=== PATIENT | female | born 1935 | race Caucasian/White ===

== ENCOUNTER 2016-04-23 15:03 | Outpatient (CLI) | payer MEDICARE | END 2016-04-23 15:04 | LOC: MADLABBHPM 15:03 | PROVIDERS: ATTEND Family Medicine | DX: R30.0 Dysuria (principal) | CPT/HCPCS: 87077; 87086; 87186 ==

== ENCOUNTER 2016-07-14 10:49 | Outpatient (CLI) | payer MEDICARE | END 2016-07-14 10:50 | disposition home or self-care (01) | LOC: MADLABBHPM 10:49 | PROVIDERS: ATTEND Family Medicine | DX: R30.0 Dysuria (principal) | CPT/HCPCS: 36415; 87077; 87086; 87186 ==

== ENCOUNTER 2017-02-26 11:17 | Emergency (ER) | payer MEDICARE ==
--- NOTE | 2017-02-26 11:59 | RAD ---
SINGLE VIEW OF THE CHEST: COMPARISON: 08/03/15 HISTORY: Dyspnea. FINDINGS: Single view of the chest shows a normal sized cardiomediastinal silhouette. There is no evidence of c onsolidation, mass, or pleural effusion. The bones are unremarkable. IMPRESSION: No evidence of acute cardiopulmonary disease. POS: [facility]
[2017-02-26] MEDS ORDERED: Lisinopril 10 MG TAB ONE (12:00)
[2017-02-26 12:11] LABS: Red Blood Cell (RBC) Count 4.61 mill/uL (4.20-5.40); White Blood Cell (WBC) Count 6.8 thou/uL (4.8-10.8)
[2017-02-26 12:12] LABS: #Basophils 0.1 thou/uL (0.0-0.2); #Eosinphils 0.1 thou/uL (0.0-0.7); #Monocytes 0.4 thou/uL (0.11-0.59); #Neutrophils 4.2 thou/uL (1.40-6.50); %Basophils 0.8 % (0.0-1.0); %Eosinophils 1.7 % (0.0-10.0); %Lymphocytes 29.8 % (21.0-51.0); %Monocytes 5.7 % (0.0-10.0); Mean Corpuscular HGB CONC 33.1 g/dL (32.0-36.0); Mean Corpuscular Hemoglobin 30.4 pg (27.0-31.0); Mean Corpuscular Volume 92.1 fl (81.0-99.0); Mean Platelet Volume 6.5 fL (7.4-10.4); Platelet Count 159 thou/uL (130-400); RBC Distribution Width 11.8 % (11.5-14.5)
[2017-02-26 12:31] LABS: ALT (SGPT) 10 U/L (8-55); AST (SGOT) 13 U/L (5-34); Alkaline Phosphatase 98 U/L (40-150); Anion Gap 16 mmol/L (10-20); BUN (Urea Nitrogen) 15 mg/dL (9.8-20.1); Bilirubin, Total 0.3 mg/dL (0.2-1.2); CK (CPK) 29 U/L (29-168); Calc. Creatinine Clearance 0 mL/min (70-130); Calcium 9.6 mg/dL (7.8-10.44); Carbon Dioxide 27 mmol/L (23-31); Chloride 104 mmol/L (98-107); Estimated GFR-MDRD 61; Globulin 3.1 g/dL (2.4-3.5); Glucose 104 mg/dL (83-110); Potassium 3.9 mmol/L (3.5-5.1); Protein, Total 7.1 g/dL (6.0-8.3); Sodium 143 mmol/L (136-145)
[2017-02-26 12:32] LABS: CKMB 1.1 ng/mL (0-6.6); Troponin I Less than 0.010 ng/mL (< 0.028)
[2017-02-26] MEDS ORDERED: methylPREDNISolone Sod Succ/PF 125 MG/2 ML VIAL ONE (13:21)
== END 2017-02-26 14:00 | disposition home or self-care (01) ==
LOC: MADERS 11:17
DX: J44.1 Chronic obstructive pulmonary disease with (acute) exacerbation (principal); F32.9 Major depressive disorder, single episode, unspecified; F41.9 Anxiety disorder, unspecified; F17.210 Nicotine dependence, cigarettes, uncomplicated; I10 Essential (primary) hypertension; I25.2 Old myocardial infarction; Z79.899 Other long term (current) drug therapy
CPT/HCPCS: 36415; 71010; 80053; 82553; 83880; 84484; 85025; 93005; 94640; 94760; 96374; J2930; J7620

== ENCOUNTER 2017-05-13 13:29 | Inpatient (IN) | payer MEDICARE ==
[2017-05-13 13:43] VITALS: BMI 23.3
[2017-05-13] MEDS ORDERED: methylPREDNISolone Sod Succ/PF 125 MG/2 ML VIAL IVP SCH (14:00)
[2017-05-13 14:10] LABS: #Basophils 0.1 thou/uL (0.0-0.2); #Eosinphils 0.1 thou/uL (0.0-0.7); #Lymphocytes 2.4 thou/uL (1.20-3.40); #Monocytes 0.7 thou/uL (0.11-0.59); #Neutrophils 6.4 thou/uL (1.40-6.50); %Basophils 0.8 % (0.0-1.0); %Eosinophils 0.9 % (0.0-10.0); %Lymphocytes 24.6 % (21.0-51.0); %Neutrophils 66.7 % (42.0-75.0); Hemoglobin 13.9 g/dL (12.0-16.0); Mean Corpuscular HGB CONC 32.7 g/dL (32.0-36.0); Mean Corpuscular Hemoglobin 29.7 pg (27.0-31.0); Mean Corpuscular Volume 90.9 fl (81.0-99.0); Mean Platelet Volume 7.9 fL (7.4-10.4); Platelet Count 208 thou/uL (130-400); RBC Distribution Width 12.9 % (11.5-14.5); Red Blood Cell (RBC) Count 4.68 mill/uL (4.20-5.40); White Blood Cell (WBC) Count 9.6 thou/uL (4.8-10.8)
[2017-05-13 14:25] LABS: ALT (SGPT) 8 U/L (8-55); AST (SGOT) 12 U/L (5-34); Albumin 4.3 g/dL (3.4-4.8); Alkaline Phosphatase 98 U/L (40-150); BUN (Urea Nitrogen) 15 mg/dL (9.8-20.1); Bilirubin, Total 0.5 mg/dL (0.2-1.2); Calc. Creatinine Clearance 45 mL/min (70-130); Calcium 9.8 mg/dL (7.8-10.44); Estimated GFR-MDRD 53; Globulin 3.3 g/dL (2.4-3.5); Glucose 109 mg/dL (83-110); Protein, Total 7.6 g/dL (6.0-8.3)
[2017-05-13 14:28] LABS: CKMB 0.9 ng/mL (0-6.6)
[2017-05-13 14:46] LABS: Chloride 101 mmol/L (98-107); Potassium 3.3 mmol/L (3.5-5.1); Sodium 139 mmol/L (136-145)
[2017-05-13] MEDS: Sodium Chloride 0.9% 1,000 ML IV SCH (15:00)
[2017-05-13 15:29] LABS: Carbon Dioxide 24 mmol/L (23-31)
[2017-05-13 16:06] LABS: Anion Gap 17 mmol/L (10-20)
[2017-05-13] MEDS ORDERED: Azithromycin 250 MG TAB PO SCH ×2 (18:00→18:45)
[2017-05-13] MEDS: Benzonatate 100 MG CAP PO SCH (20:03)
[2017-05-14] MEDS: Sodium Chloride 0.9% 1,000 ML IV SCH ×3 (01:07→17:55)
--- NOTE | 2017-05-14 08:03 | HP ---
ATTENDING: Dr. Johana Hu REASON FOR ADMISSION: Shortness of breath, general weakness, not eating. HISTORY OF PRESENT ILLNESS: Ms. Canada is a 81-year-old female with multiple chronic medical conditions including COPD, hypertension, dyslipidemia, CAD , CHF, depression, anxiety and chronic tobacco use. She had been on multiple chronic medications, but had not been taking her medications in awhile nor followed up to the clinic lately except for when she is sick. She initially was brought by the granddaughter, Betsy Alvarez, who serves as the primary manager corporate strategy to [facility] today for evaluation of persistent blood pressure elevation and persistent coughing with shortness of breath. Ms. Alvarez reports that the patient had been out of all her medications including her inhalers. She still has some of her lisinopril left, but had not been taking them. Lately the patient has been coughing persistently over the past couple of weeks that has progressed and worsened. Associated symptoms include sputum production, intermittent shortness of breath and wheezing. Lately her blood pressure has been elevated in the 160s to 180s whenever her granddaughter checks BP at home. She has not been feeling well for the last few days and had not been eating lately. She was noticeably becoming weaker at home per granddaughter. She stays in bed the whole time and does not want to do anything per granddaughter. Yesterday her blood pressure was reported up to 208/148. Granddaughter started the remaining pill of lisinopril 40 mg, once yesterday, but reports could not keep her blood pressure low. She took again the blood pressure medication today, but her blood pressures still remained high , thus granddaughter brought the patient to the clinic for which she agreed on. When seen, patient reports that she has been coughing and has a hard time breathing at times. She denies chest pain, pain with breathing or bloody sputum. She states that she does not feel good. Granddaughter also reports tactile fever a few days ago. The patient continues to smoke instead of eating meals. Per granddaughter, patient could hardly walk or even get up out of bed or chair without significant help. When she presented in the clinic, she was in the wheelchair with respirations of 28, and O2 sats of 90%. A trial of albuterol and Atrovent neb treatment was given in the clinic. O2 saturation improved from 91 to 93 on room air and respiration that was down to 24 post- nebs treatment. Chest x-ray was obtained that showed no radiographic evidence of acute pulmonary process. I had a lengthy discussion with the patient and manager corporate strategy/granddaughter, Betsy Alvarez for the treatment options. Ms. Alvarez reports that patient is very noncompliant at home. She may not take her medications again and she is concerned that she may just decline further with outpatient therapy. Also reports that patient's spouse who is chronically ill just had a stroke and is needing higher level of care at home as well. The granddaughter reports that she is the only one who takes care of them and is not comfortable at this time to take her home. I discussed this with patient who agrees to be admitted for inpatient management of COPD, general weakness/ dehydration as long as she is going to be in [facility]. Patient was admitted then to [facility] per request. PAST MEDICAL HISTORY: Hypertension, dyslipidemia, history of previous strokes, COPD, arthritis, CAD, recurrent UTI, congestive heart failure, arthritis, migraine headache, depression, anxiety, chronic tobacco use.Medical noncompliance. ALLERGIES: KEFLEX, throat swelling. DIAZEPAM, confusion. HYDROCODONE, confusion. TICLOPIDINE allergy. PHENYTOIN, severe confusion, VIOXX allergy. HEMOROLOGIC AGENTS, allergy, CONTRAST DYE, allergy anaphylactic LORCET/ LORCET allergy. CODEINE confusion. PAST SURGICAL HISTORY: Denies. HOSPITALIZATION: Bladder problem 2011.; Pneumonia, COPD-unrecalled dates FAMILY HISTORY: Father of brain cancer. Spouse is alive with chronic medical conditions. Mother is . SOCIAL HISTORY: The patient is and lives with . Current manager corporate strategy is Ms. Betsy Alvarez, who lives with the patient at this time. Habits; chronic tobacco smoking for more than 50 years. Denies alcohol or illicit drug use. REVIEW OF SYSTEMS: GENERAL: The patient reports feverish sensation and chills, fatigue, general weakness, loss of appetite and weight loss 7.6 lbs per clinic records in 2 months period. HEENT: Denies acute visual changes, blurred vision, runny nose, congestion, earache. CARDIAC: Denies chest pain, syncope, palpitations, paroxysmal nocturnal dyspnea. Reports dyspnea on exertion. RESPIRATORY: Reports persistent cough, shortness of breath, chest congestion, sputum production, wheezing. No pain with breathing. No bloody sputum. GASTROINTESTINAL: No nausea, vomiting, abdominal pain, diarrhea, constipation, rectal bleeding. GENITOURINARY: Denies frequency, urgency or hematuria. MUSCULOSKELETAL: Denies joint swelling, joint pain, low back pain. Reports trouble walking due to unsteadiness or general weakness. SKIN: No rashes, no lesions, no pruritus. NEURO: No new motor or sensory losses. No loss of consciousness, no seizures, tics or tremors. ENDOCRINE: No heat or cold intolerance. Positive weight loss of 7.6 over a 2 month period based on clinic records. HEMATOLOGIC: Denies easy bruising or any source of bleeding. PSYCH: Reports history of anxiety and depression. Denies active symptoms, no hallucinations. No insomnia PHYSICAL EXAMINATION: VITAL SIGNS: Temperature 99.6, pulse 84, respirations 20, blood pressure 143/63 , O2 saturation 93% on room air. GENERAL: The patient is asleep, resting comfortably in bed in position. No family is present at the time of visit. Not in distress. HEENT: Normocephalic, atraumatic. PERRL intact. Anicteric sclerae. Oral mucosa is dry. NECK: Supple. No LAD, no JVD, no bruit. CHEST: Normal excursion, nonlabored breathing. LUNGS: Good air movements. No rales, no crackles, no wheezing. Prolonged expiratory phase. No rales, no crackles, no wheezing, no rhonchi. HEART: RRR. Normal S1 and S2. ABDOMEN: Flat, soft, normoactive bowel sounds, nondistended, nontender. No rebound or guarding. Negative CVA tenderness bilaterally. EXTREMITIES: No edema, no cyanosis. Negative Homans' bilaterally. SKIN: Poor skin turgor. No rashes, no lesions, warm. PSYCH: calm, appropriate mood and affect, cooperative. ASSESSMENT: 1. Acute COPD exacerbation. 2. Acute Bronchitis. 3. Dehydration symptoms secondary to poor oral intake/loss of appetite. 4. General weakness 5. Anorexia with weight loss. 6. Hypertension. 7. History of CHF, CAD, depression and anxiety. 8. Chronic tobacco use, unmotivated to quit. 9. Medical noncompliance. 1. The patient is admitted to [facility] for inpatient management of chronic obstructive pulmonary disease and further observation of general weakness and dehydration. We will start on IV steroids. We will continue bronchodilators, O2 supplement p.r.n. Empiric treatment with oral antibiotic, to start Z-CED. 2. We will continue to monitor her blood pressure. Hold Lisinopril for now due t low BP. Treat if indicated. IV fluids initiated for hydration. The patient is encouraged to eat, increase caloric intake. Dietary consult for supplements. 3. The patient may benefit from therapy. May consider in a.m. once patient is stabilized. 4. Routine labs ordered. 5. GI prophylaxis with PPI. 6. DVT prophylaxis with Lovenox. 7. Further recommendations depending on the hospital course. CODE STATUS: Patient reports FULL CODE code. DISPOSITION: Home once appropriate. FANY
[2017-05-14] MEDS: Enoxaparin Sodium 40 MG/0.4 ML SYRINGE SC SCH (08:22)
[2017-05-14] MEDS: Nicotine 21 MG PATCH TD SCH (08:22)
[2017-05-14] MEDS: Azithromycin 250 MG TAB PO SCH (08:22)
[2017-05-14] MEDS: Benzonatate 100 MG CAP PO SCH ×3 (08:22→21:01)
[2017-05-14] MEDS ORDERED: Budesonide 0.5 MG/2 ML NEB INH SCH (10:45)
[2017-05-14] MEDS ORDERED: Sodium Chloride 0.9% 1,000 ML BAG ONE (13:37)
[2017-05-14] MEDS: Budesonide 0.5 MG/2 ML NEB INH SCH (17:54)
[2017-05-14] MEDS ORDERED: Sodium Chloride 0.9% 1,000 ML IV SCH (19:00)
[2017-05-14] MEDS ORDERED: Amlodipine 5 MG TAB PO SCH (19:15)
[2017-05-14] MEDS ORDERED: Promethazine DM 6.25-15mg/5ml 120 ML BOT PO PRN (20:08)
[2017-05-15] MEDS: Budesonide 0.5 MG/2 ML NEB INH SCH ×2 (06:34→17:53)
[2017-05-15] MEDS: Benzonatate 100 MG CAP PO SCH ×3 (07:41→20:22)
[2017-05-15] MEDS: Azithromycin 250 MG TAB PO SCH (07:41)
[2017-05-15] MEDS: Nicotine 21 MG PATCH TD SCH (07:42)
[2017-05-15] MEDS: Amlodipine 5 MG TAB PO SCH (07:42)
[2017-05-15] MEDS: Enoxaparin Sodium 40 MG/0.4 ML SYRINGE SC SCH (07:42)
[2017-05-15] MEDS ORDERED: Mag-Al 1200 mg/1200 mg/30 ML UDCUP PO PRN (09:25)
[2017-05-15] MEDS ORDERED: Ondansetron ODT 4 MG TAB PO PRN (09:25)
[2017-05-16] MEDS: Budesonide 0.5 MG/2 ML NEB INH SCH (05:49)
[2017-05-16 07:13] VITALS: BP 137/64; TEMP 97.2
[2017-05-16] MEDS: Azithromycin 250 MG TAB PO SCH (09:25)
[2017-05-16] MEDS: Amlodipine 5 MG TAB PO SCH (09:25)
[2017-05-16] MEDS: Enoxaparin Sodium 40 MG/0.4 ML SYRINGE SC SCH (09:26)
[2017-05-16] MEDS: Benzonatate 100 MG CAP PO SCH (09:26)
[2017-05-16] MEDS: Nicotine 21 MG PATCH TD SCH (09:26)
== END 2017-05-16 11:45 | DRG 192 ==
LOC: MADMS 13:29
PROVIDERS: ADMIT Family Medicine; ATTEND Family Medicine
DX: J44.0 Chronic obstructive pulmonary disease with (acute) lower respiratory infection (principal); E86.0 Dehydration; I11.0 Hypertensive heart disease with heart failure; I50.9 Heart failure, unspecified; J44.1 Chronic obstructive pulmonary disease with (acute) exacerbation; R53.1 Weakness; E78.5 Hyperlipidemia, unspecified; I25.10 Atherosclerotic heart disease of native coronary artery without angina pectoris; F32.9 Major depressive disorder, single episode, unspecified; F41.9 Anxiety disorder, unspecified; F17.210 Nicotine dependence, cigarettes, uncomplicated; Z91.14 Patient's other noncompliance with medication regimen; Z91.19 Patient's noncompliance with other medical treatment and regimen; J20.9 Acute bronchitis, unspecified; R63.0 Anorexia; Z68.23 Body mass index [BMI] 23.0-23.9, adult
CPT/HCPCS: 71046; 80053; 82553; 83880; 84484; 85025; A4216; J1650; J2930; J7050; J7620; J7626; Q0162

== ENCOUNTER 2017-05-16 10:28 | Inpatient (IN) | payer MEDICARE ==
[2017-05-16] MEDS ORDERED: Mag-Al 1200 mg/1200 mg/30 ML UDCUP PO PRN (13:17)
[2017-05-16] MEDS: Benzonatate 100 MG CAP PO SCH ×2 (14:08→20:42)
[2017-05-16] MEDS: Mometasone/Formoterol 60 PUFF AER INH SCH (18:30)
[2017-05-16] MEDS: Promethazine DM 6.25-15mg/5ml 120 ML BOT PO PRN (18:31)
[2017-05-17] MEDS: Mometasone/Formoterol 60 PUFF AER INH SCH ×2 (06:15→18:37)
[2017-05-17] MEDS: Amlodipine 5 MG TAB PO SCH (07:48)
[2017-05-17] MEDS: Benzonatate 100 MG CAP PO SCH ×3 (07:48→20:09)
[2017-05-17] MEDS: Nicotine 21 MG PATCH TD SCH (07:49)
[2017-05-17] MEDS: Enoxaparin Sodium 40 MG/0.4 ML SYRINGE SC SCH (07:49)
[2017-05-17] MEDS: Azithromycin 250 MG TAB PO SCH (07:49)
[2017-05-17] MEDS ORDERED: Prevnar 13-Val Conj/PF 0.5 ML SYRINGE IM ONE (09:00)
[2017-05-17] MEDS ORDERED: FLU VACC TS2017-18 (>65YR) 0.5 ML SYRINGE IM ONE (09:00)
[2017-05-18] MEDS: Mometasone/Formoterol 60 PUFF AER INH SCH ×2 (06:19→18:09)
[2017-05-18] MEDS: Enoxaparin Sodium 40 MG/0.4 ML SYRINGE SC SCH (08:39)
[2017-05-18] MEDS: Nicotine 21 MG PATCH TD SCH (08:40)
[2017-05-18] MEDS: Azithromycin 250 MG TAB PO SCH (08:41)
[2017-05-18] MEDS: Amlodipine 5 MG TAB PO SCH (08:41)
[2017-05-18] MEDS: Benzonatate 100 MG CAP PO SCH ×3 (08:41→20:22)
[2017-05-19 03:51] VITALS: BMI 24.2
[2017-05-19] MEDS: Mometasone/Formoterol 60 PUFF AER INH SCH ×2 (06:12→19:12)
[2017-05-19] MEDS: Amlodipine 5 MG TAB PO SCH (09:04)
[2017-05-19] MEDS: Benzonatate 100 MG CAP PO SCH ×3 (09:04→20:23)
[2017-05-19] MEDS: Enoxaparin Sodium 40 MG/0.4 ML SYRINGE SC SCH (09:05)
[2017-05-19] MEDS: Nicotine 21 MG PATCH TD SCH (09:06)
[2017-05-19] MEDS ORDERED: Amlodipine 5 MG TAB PO SCH (13:15)
[2017-05-20] MEDS: Mometasone/Formoterol 60 PUFF AER INH SCH ×2 (06:06→17:39)
[2017-05-20] MEDS: Promethazine DM 6.25-15mg/5ml 120 ML BOT PO PRN (07:42)
[2017-05-20] MEDS: Amlodipine 5 MG TAB PO SCH (09:14)
[2017-05-20] MEDS: Enoxaparin Sodium 40 MG/0.4 ML SYRINGE SC SCH (09:14)
[2017-05-20] MEDS: Nicotine 21 MG PATCH TD SCH (09:14)
[2017-05-20] MEDS: Benzonatate 100 MG CAP PO SCH ×3 (09:15→20:28)
[2017-05-21 06:59] VITALS: BP 117/60; TEMP 97.6
[2017-05-21] MEDS: Mometasone/Formoterol 60 PUFF AER INH SCH (09:04)
[2017-05-21] MEDS: Nicotine 21 MG PATCH TD SCH (09:04)
[2017-05-21] MEDS: Enoxaparin Sodium 40 MG/0.4 ML SYRINGE SC SCH (09:06)
[2017-05-21] MEDS: Benzonatate 100 MG CAP PO SCH (09:06)
[2017-05-21] MEDS: Amlodipine 5 MG TAB PO SCH (09:06)
--- NOTE | 2017-05-21 13:54 | DIS ---
DATE OF DISCHARGE: 05/21/2017 REASON FOR ADMISSION: Shortness of breath, wheezing. FINAL DIAGNOSES: 1. Deconditioning. 2. Chronic obstructive pulmonary disease exacerbation. 3. Acute bronchitis, treated. 4. Dehydration symptoms secondary to poor oral intake/loss of appetite.Improved. 5. General weakness, improved. 6. Anorexia with weight loss, improved. 7. Hypertension. 8. History of congestive heart failure, coronary artery disease, depression, anxiety, currently not on medication secondary to noncompliance.Compensated. Euvolemic. 9. Chronic tobacco use. 10. Medical noncompliance. DISCHARGE MEDICATIONS: 1. Amlodipine 10 mg p.o. daily. 2. DuoNeb q.4h. p.r.n. 3. Symbicort 160/4.5 two puffs inhaled b.i.d. 4. Nicoderm 21 mg p.o. daily. 5. Pantoprazole 40 mg p.o. daily. 6. Aspirin 81 mg p.o. daily. DISPOSITION: Home. CONDITION ON DISCHARGE: Stable. DIET: Low salt, low fat. ACTIVITIES: To use rolling walker all the time. FOLLOW UP: Follow up with Dr. Hu in 1-2 weeks, sooner with concerns. To go home with home health for usp, PT, OT evaluate and treat. DME prearranged prior to discharge, rolling walker. HISTORY OF PRESENT ILLNESS AND HOSPITAL COURSE: Ms. Canada is a 81-year-old female with multiple chronic medical conditions including COPD, hypertension, dyslipidemia, CAD, CHF, depression, anxiety and chronic tobacco use. She had been noncompliant with all her medications including the breathing treatment. She was admitted on 05/13/2017 secondary to persistent shortness of breath, general weakness, poor oral intake with 3 pound weight loss over a month or so. The patient was admitted in [facility] and was treated appropriately with bronchodilators, IV steroid that was subsequently changed to oral steroid and oral antibiotic. The patient did well during this admission. COPD symptoms improved and was back to baseline prior to discharge. She was also started on amlodipine during this admission secondary to persistent BP elevation. Prior to discharge BP has been stable with amlodipine 10 mg p.o. daily. She was also started on Nicoderm 21 mg patch during this admission. Nicoderm patch helped the patient's craving not to use tobacco during this admission and she did well. Due to general weakness/deconditioning, the patient was deemed to benefit for further rehab prior to going back to home environment. She was then transferred to [facility] swing bed after acute treatment and did well in the rehab. She was walking about 400 feet using a rolling walker prior to discharge. She is deemed at baseline functional activity at this point, but states she still feeling generally weak, thus recommending to continue rehab with home health at home. The patient was very agreeable to this. She was discharged on 05/21/2017 with improved symptoms. Vital signs prior to discharge; blood pressure 117/60, temperature 97.6, pulse 75, O2 sat 95% on room air, respirations 20 with a weight of 141 pounds and 2 ounces, height 5 feet 4 inches. Time spent on this discharge in examining patient and coordinating care 32 minutes. FANY
== END 2017-05-21 11:45 | disposition home health service (06) | DRG 192 ==
LOC: MADMS 11:50
PROVIDERS: ADMIT Family Medicine; ATTEND Family Medicine
DX: J44.0 Chronic obstructive pulmonary disease with (acute) lower respiratory infection (principal); E86.0 Dehydration; F50.89 Other specified eating disorder; I11.0 Hypertensive heart disease with heart failure; I50.9 Heart failure, unspecified; J44.1 Chronic obstructive pulmonary disease with (acute) exacerbation; J20.9 Acute bronchitis, unspecified; I25.10 Atherosclerotic heart disease of native coronary artery without angina pectoris; F32.9 Major depressive disorder, single episode, unspecified; F41.9 Anxiety disorder, unspecified; Z91.14 Patient's other noncompliance with medication regimen; E78.5 Hyperlipidemia, unspecified; Z72.0 Tobacco use; Z91.19 Patient's noncompliance with other medical treatment and regimen; Z87.01 Personal history of pneumonia (recurrent); Z68.24 Body mass index [BMI] 24.0-24.9, adult
CPT/HCPCS: G8978-GP-CJ; G8979-GP-CI; J1650; J7620

== ENCOUNTER 2017-11-26 17:10 | Emergency (ER) | payer MEDICARE ==
[~2017-11-26 17:10] MED LIST: Sodium Chloride 0.9% 1,000 ML BAG ONE
[2017-11-26] MEDS ORDERED: Ondansetron ODT 4 MG TAB ONE (17:35)
[2017-11-26 17:49] LABS: #Basophils 0.1 thou/uL (0.0-0.2); #Eosinphils 0.1 thou/uL (0.0-0.7); #Lymphocytes 2.9 thou/uL (1.20-3.40); #Monocytes 0.6 thou/uL (0.11-0.59); #Neutrophils 5.5 thou/uL (1.40-6.50); %Basophils 0.9 % (0.0-1.0); %Eosinophils 0.8 % (0.0-10.0); %Lymphocytes 31.4 % (21.0-51.0); %Monocytes 7.1 % (0.0-10.0); %Neutrophils 59.9 % (42.0-75.0); Hemoglobin 15.1 g/dL (12.0-16.0); Mean Corpuscular HGB CONC 35.5 g/dL (32.0-36.0); Mean Corpuscular Hemoglobin 31.9 pg (27.0-31.0); Mean Corpuscular Volume 89.8 fL (78.0-98.0); Mean Platelet Volume 6.8 fL (7.4-10.4); Platelet Count 186 thou/uL (130-400); RBC Distribution Width 12.2 % (11.5-14.5); Red Blood Cell (RBC) Count 4.74 mill/uL (4.20-5.40); White Blood Cell (WBC) Count 9.1 thou/uL (4.8-10.8)
[2017-11-26 18:01] LABS: Anion Gap 14 mmol/L (10-20); BUN (Urea Nitrogen) 10 mg/dL (9.8-20.1); Calc. Creatinine Clearance 0 mL/min (70-130); Calcium 9.9 mg/dL (7.8-10.44); Carbon Dioxide 27 mmol/L (23-31); Chloride 104 mmol/L (98-107); Estimated GFR-MDRD 57; Glucose 99 mg/dL (83-110); Potassium 3.9 mmol/L (3.5-5.1); Sodium 141 mmol/L (136-145)
[2017-11-26 18:05] LABS: CKMB 1.1 ng/mL (0-6.6); Troponin I 0.016 ng/mL (< 0.028)
[2017-11-26] MEDS ORDERED: Ondansetron HCl/PF 4 MG/2 ML Vial ONE (18:28)
[2017-11-26 19:22] LABS: Bilirubin Negative (Negative); Blood, Urine Negative (Negative); Clarity Clear (Clear); Glucose, Urine (Dipstick) Negative (Negative); Leukocyte Small (Negative); Nitrite Negative (Negative); Protein, Urine (Dipstick) Negative (Neg-Trace); Urobilinogen 0.2 mg/dL (0.2-1.0)
[2017-11-26 19:23] LABS: Specific Gravity, Urine 1.005 (1.002-1.036)
[2017-11-26 19:29] LABS: RBC/HPF 0-3 HPF (0-3)
[2017-11-26 19:30] LABS: Bacteria/HPF Rare-Few HPF (None Seen)
== END 2017-11-26 20:08 | disposition home or self-care (01) ==
LOC: MADERS 17:10
DX: N39.0 Urinary tract infection, site not specified (principal); E86.0 Dehydration; I10 Essential (primary) hypertension; J44.9 Chronic obstructive pulmonary disease, unspecified; I25.2 Old myocardial infarction; F17.210 Nicotine dependence, cigarettes, uncomplicated
CPT/HCPCS: 36415; 80048; 81003; 81015; 82553; 84484; 85025; 93005; 96361; 96374; J2405; J7050; Q0162

== ENCOUNTER 2017-12-21 15:22 | Emergency (ER) | payer MEDICARE ==
[2017-12-21 16:23] LABS: Bilirubin Negative (Negative); Blood, Urine Negative (Negative); Clarity Clear (Clear); Glucose, Urine (Dipstick) Negative (Negative); Leukocyte Negative (Negative); Nitrite Negative (Negative); Protein, Urine (Dipstick) Negative (Neg-Trace); Urobilinogen 0.2 mg/dL (0.2-1.0); pH, Urine 5.5 (5.0-9.0)
[2017-12-21 16:46] LABS: #Basophils 0.1 thou/uL (0.0-0.2); #Eosinphils 0.1 thou/uL (0.0-0.7); #Lymphocytes 2.3 thou/uL (1.20-3.40); #Monocytes 0.7 thou/uL (0.11-0.59); #Neutrophils 6.3 thou/uL (1.40-6.50); %Basophils 0.9 % (0.0-1.0); %Eosinophils 0.7 % (0.0-10.0); %Lymphocytes 24.3 % (21.0-51.0); %Monocytes 7.1 % (0.0-10.0); %Neutrophils 67.1 % (42.0-75.0); Hemoglobin 13.6 g/dL (12.0-16.0); Mean Corpuscular HGB CONC 33.6 g/dL (32.0-36.0); Mean Corpuscular Hemoglobin 30.2 pg (27.0-31.0); Mean Corpuscular Volume 89.9 fL (78.0-98.0); Mean Platelet Volume 7.5 fL (7.4-10.4); Platelet Count 210 thou/uL (130-400); RBC Distribution Width 11.6 % (11.5-14.5); White Blood Cell (WBC) Count 9.5 thou/uL (4.8-10.8)
[2017-12-21 17:02] LABS: ALT (SGPT) 12 U/L (8-55); AST (SGOT) 13 U/L (5-34); Albumin 4.1 g/dL (3.4-4.8); Alkaline Phosphatase 92 U/L (40-150); Anion Gap 15 mmol/L (10-20); BUN (Urea Nitrogen) 17 mg/dL (9.8-20.1); Bilirubin, Total 0.5 mg/dL (0.2-1.2); Calc. Creatinine Clearance 0 mL/min (70-130); Calcium 9.8 mg/dL (7.8-10.44); Carbon Dioxide 27 mmol/L (23-31); Chloride 99 mmol/L (98-107); Estimated GFR-MDRD 57; Globulin 3.2 g/dL (2.4-3.5); Glucose 109 mg/dL (83-110); Protein, Total 7.3 g/dL (6.0-8.3); Sodium 138 mmol/L (136-145)
[2017-12-21] MEDS ORDERED: Potassium Chloride 20 MEQ TAB ONE (18:27)
--- NOTE | 2017-12-21 18:38 | CT ---
NONCONTRAST CT ABDOMEN AND PELVIS: Date: 12/31/17 HISTORY: Right lower quadrant pain for 4 days. Iodine allergy. COMPARISON: 05/29/16. FINDINGS: Again noted are calcifications in the region of each renal pelvis, which may actually represent vascu lar calcifications as opposed to renal calculi. There is no hydronephrosis and no definite ureteral c alculus is seen bilaterally. There is slightly asymmetric greater right perinephric stranding. The ex act etiology is uncertain. Infection on the right cannot be entirely excluded. Urinary bladder is partially distended and has a normal appearance. Again noted is a prominent calcif ication seen near the base of the urinary bladder, but is likely near the region of the vaginal cuff and there is evidence of prior hysterectomy. Calcified granuloma is present at the right lung base. There is suggestion of minimal emphysematous c hanges at each lung base. Vascular calcifications seen in the abdominal aorta and involving the iliac arteries. Calcified granuloma is present in the spleen. The liver, pancreas, and bilateral adrenal glands demonstrate a grossly normal nonenhanced CT appeara nce. Degenerative changes are again seen in the lumbar spine. IMPRESSION: 1. Calcifications in each renal pelvis, which are stable from prior exam and appear to represent vas cular calcifications as opposed to nonobstructing renal calculi. No ureteral calculus is seen bilater ally, and there is no hydronephrosis. 2. Minimal asymmetric right perinephric stranding compared to the left. The exact etiology is uncert ain. Infection on the right cannot be entirely excluded. Recent passage of a calculus is a possibilit y, but there are no periureteral inflammatory changes to suggest this as an etiology. 3. Colonic diverticulosis. 4. The appendix is not visualized, but there are no secondary signs to suggest appendicitis. 5. Hysterectomy with prominent vascular calcifications near the vaginal cuff and appears to be betwe en the vaginal cuff and the base of the urinary bladder. 6. Tiny pericardial effusion versus pericardial thickening. POS: [facility]
== END 2017-12-21 18:25 | disposition home or self-care (01) ==
LOC: MADERS 15:22
DX: E87.6 Hypokalemia (principal); R10.31 Right lower quadrant pain; I10 Essential (primary) hypertension; J44.9 Chronic obstructive pulmonary disease, unspecified; I25.2 Old myocardial infarction; F41.9 Anxiety disorder, unspecified; F32.9 Major depressive disorder, single episode, unspecified; F17.210 Nicotine dependence, cigarettes, uncomplicated
CPT/HCPCS: 36415; 74176; 80053; 81003; 85025; 99406

== ENCOUNTER 2018-01-01 09:03 | Outpatient (CLI) | payer MEDICARE ==
[2018-01-01 09:31] LABS: Anion Gap 16 mmol/L (10-20); BUN (Urea Nitrogen) 15 mg/dL (9.8-20.1); Calc. Creatinine Clearance 0 mL/min (70-130); Calcium 10.1 mg/dL (7.8-10.44); Carbon Dioxide 23 mmol/L (23-31); Chloride 106 mmol/L (98-107); Estimated GFR-MDRD 52; Glucose 109 mg/dL (83-110); Potassium 3.8 mmol/L (3.5-5.1); Sodium 141 mmol/L (136-145)
== END 2018-01-01 09:04 ==
LOC: MADLABBHPM 09:03
PROVIDERS: ATTEND Family Medicine
DX: E87.6 Hypokalemia (principal)
CPT/HCPCS: 36415; 80048

== ENCOUNTER 2018-04-04 16:34 | Emergency (ER) | payer MEDICARE ==
[2018-04-04] MEDS ORDERED: Ipratropium Bromide 2.5 ml Neb ONE (17:02)
[2018-04-04] MEDS ORDERED: Albuterol Sulfate 2.5 mg/0.5 ml Neb ONE (17:02)
[2018-04-04] MEDS ORDERED: Sodium Chloride 0.9% 1,000 ML ONE (17:08)
[2018-04-04 17:17] LABS: #Basophils 0.1 thou/uL (0.0-0.2); #Lymphocytes 0.5 thou/uL (1.20-3.40); #Monocytes 0.5 thou/uL (0.11-0.59); #Neutrophils 8.3 thou/uL (1.40-6.50); %Eosinophils 0.1 % (0.0-10.0); %Lymphocytes 4.8 % (21.0-51.0); %Neutrophils 89.2 % (42.0-75.0); Hemoglobin 13.3 g/dL (12.0-16.0); Mean Corpuscular HGB CONC 32.8 g/dL (32.0-36.0); Mean Corpuscular Hemoglobin 30.3 pg (27.0-31.0); Mean Corpuscular Volume 92.6 fL (78.0-98.0); Platelet Count 136 thou/uL (130-400); RBC Distribution Width 12.2 % (11.5-14.5); Red Blood Cell (RBC) Count 4.38 mill/uL (4.20-5.40); White Blood Cell (WBC) Count 9.3 thou/uL (4.8-10.8)
[2018-04-04] MEDS ORDERED: Acetaminophen 500 MG TAB ONE (17:17)
[2018-04-04] MEDS ORDERED: cefTRIAXone\\ROCEPHIN 1 GM VIAL ONE (17:17)
[2018-04-04 17:30] LABS: ALT (SGPT) 12 U/L (8-55); AST (SGOT) 16 U/L (5-34); Albumin 4.3 g/dL (3.4-4.8); Alkaline Phosphatase 90 U/L (40-150); Anion Gap 15 mmol/L (10-20); BUN (Urea Nitrogen) 12 mg/dL (9.8-20.1); Bilirubin, Total 0.8 mg/dL (0.2-1.2); CK (CPK) 47 U/L (29-168); Calc. Creatinine Clearance 0 mL/min (70-130); Calcium 9.7 mg/dL (7.8-10.44); Carbon Dioxide 24 mmol/L (23-31); Chloride 103 mmol/L (98-107); Estimated GFR-MDRD 53; Globulin 3.3 g/dL (2.4-3.5); Glucose 149 mg/dL (83-110); Potassium 3.7 mmol/L (3.5-5.1); Protein, Total 7.6 g/dL (6.0-8.3); Sodium 138 mmol/L (136-145)
[2018-04-04] MEDS ORDERED: methylPREDNISolone Sod Succ/PF 125 MG/2 ML VIAL ONE (17:54)
--- NOTE | 2018-04-04 18:01 | RAD ---
PA AND LATERAL CHEST X-RAY: 04/04/2018 HISTORY: Dyspnea. Fever. COPD. COMPARISON: 05/13/2017 FINDINGS: The cardiac silhouette and pulmonary vasculature are within normal limits. The lungs are clear. Vas cular calcifications are again seen in the thoracic aorta. Degenerative changes are noted in the spi ne. Post surgical changes of the left shoulder are again present. The chest is stable from prior ex am. IMPRESSION: No acute cardiopulmonary process. POS: [facility]
[2018-04-04 18:34] LABS: CKMB 0.8 ng/mL (0-6.6)
[2018-04-04 18:35] LABS: Bilirubin Negative (Negative); Blood, Urine Small (Negative); Clarity Clear (Clear); Glucose, Urine (Dipstick) Negative (Negative); Leukocyte Negative (Negative); Nitrite Negative (Negative); Protein, Urine (Dipstick) 100 mg/dL (Neg-Trace); Urobilinogen 0.2 mg/dL (0.2-1.0); pH, Urine 5.5 (5.0-9.0)
[2018-04-04 18:37] LABS: Bacteria/HPF None Seen HPF (None Seen); Crystals/HPF 1+ AMORPH PHOS HPF (Negative); Other Microscopic Description C&S SET UP; RBC/HPF 0-3 HPF (0-3); Squamous Epithelial 0-3 HPF (0-3); WBC/HPF None Seen HPF (0-3)
[2018-04-04] MEDS ORDERED: Enoxaparin Sodium 60 MG/0.6 ML SYRINGE ONE (18:52)
[2018-04-04] MEDS ORDERED: Sodium Chloride 0.9% 2,000 ML ONE (18:52)
[2018-04-04] MEDS ORDERED: Oseltamivir 75 MG CAP ONE (18:52)
== END 2018-04-04 19:16 | disposition short-term general hospital (02) ==
LOC: MADERS 16:34
DX: J44.1 Chronic obstructive pulmonary disease with (acute) exacerbation (principal); J10.1 Influenza due to other identified influenza virus with other respiratory manifestations; R79.89 Other specified abnormal findings of blood chemistry; I10 Essential (primary) hypertension; I25.2 Old myocardial infarction; F41.9 Anxiety disorder, unspecified; F32.9 Major depressive disorder, single episode, unspecified; F17.210 Nicotine dependence, cigarettes, uncomplicated; Z79.899 Other long term (current) drug therapy; Z79.51 Long term (current) use of inhaled steroids
CPT/HCPCS: 36415; 51701; 71046; 80053; 81003; 81015; 82550; 82553; 83605; 84484; 85025; 85379; 87040; 87086; 87804; 93005; 96361; 96372; 96374; 96375; A4353; J0696; J1650; J2930; J7050; J7611; J7620

== ENCOUNTER 2018-04-15 10:00 | Inpatient (IN) | payer MEDICARE ==
[2018-04-15] MEDS ORDERED: Prevnar 13-Val Conj/PF 0.5 ML SYRINGE IM ONE (11:15)
[2018-04-15] MEDS: predniSONE 20 MG TAB PO SCH (17:26)
[2018-04-15] MEDS: Budesonide 0.5 MG/2 ML NEB NEB SCH (18:23)
[2018-04-15] MEDS: traZODone HCl 50 MG TAB PO SCH (20:25)
[2018-04-15] MEDS: guaiFENesin ER 600 MG TAB PO SCH (20:25)
[2018-04-15] MEDS ORDERED: Mirtazapine 15 MG TAB PO SCH (21:00)
--- NOTE | 2018-04-16 01:13 | HP ---
PRIMARY CARE PHYSICIAN: Dr. Hu. REASON FOR ADMISSION: Skilled rehab in [facility]. HISTORY OF PRESENT ILLNESS: Ms. Canada is a very pleasant 82-year-old female with history of COPD, chronic tobacco use, not interested to quit smoking, depression, anxiety, hypertension, GERD. The patient was recently admitted to [facility] for shortness of breath and persistent cough. She was diagnosed with COPD exacerbation, influenza A pneumonia, hypokalemia, hypophosphatemia, lactic acidosis, acute on chronic respiratory failure with hypoxia. She was admitted on 04/04/2018 and was discharged on 04/09/2018. The patient was discharged on oral Levaquin and oral prednisone, for which she was completing at this point. The patient had a routine followup after hospitalization in the clinic today when the patient reports that she is still not doing well. She states that she has been having shortness of breath and generally weak, unable to walk. She was with her grandson, who serves as a ultrasound coordinator for the patient. Grandson reports that since the patient was discharged home, she has not been moving around because the patient easily develops shortness of breath. The last episode of shortness of breath was this morning prior to the clinic visit. When she came in to the clinic, her O2 saturation was noted at 84% at room air. She did not bring her home O2 with her. Her O2 easily went up to 94% to 96% at 2 L per nasal cannula. Family reports apparent concern that the patient may end up in the hospital again if she does not do well. She easily develops shortness of breath with exertion even when going to the bathroom. The patient admits that she continued using her breathing treatment at home and she also continued smoking despite of the medical recommendations. She is on her last two days of oral antibiotic and oral streroid After lengthy discussion with the patient and the family as represented by her grandson, who acts as a primary ultrasound coordinator, everybody was in agreement that patient need some more strengthening and conditioning exercises secondary to general weakness and further observation of her respiratory status in [facility], thus admitted for skilled rehab. PAST MEDICAL HISTORY: Hypertension; anxiety; hypercholesteremia; migraine headache; previous stroke; PUD; emphysema; COPD; arthritis; CAD; recurrent UTI, previously on prophylactic antibiotic; history of CHF; chronic respiratory failure with hypoxia, O2 dependent; chronic tobacco use. 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 CURRENT MEDICATIONS: 1. Amlodipine 10 mg p.o. daily. 2. BuSpar 10 mg p.o. twice a day. 3. Escitalopram 10 mg p.o. daily. 4. Ranitidine 150 mg p.o. daily. 5. Symbicort 2 puffs twice a day. 6. Trazodone 50 mg two tablets at bedtime. 7. DuoNeb q.6 hours p.r.n. 8. Levaquin 750 mg p.o. daily for two more days. 9. Prednisone 20 mg p.o. b.i.d. for two more days to complete 7-day course. 10. Aspirin 81 mg p.o. daily. 11. Guaifenesin ER 600 mg p.o. q.12 hours p.r.n. 12. Florastor 250 mg p.o. daily. FAMILY HISTORY: Parents . Spouse . SOCIAL HISTORY: The patient is a tobacco user, chronic. Denies illicit drug use or alcohol use. ALLERGIES: KEFLEX, THROAT SWELLING; DIAZEPAM, CONFUSION; HYDROCODONE, CONFUSION ; TICLOPIDINE, RASH; PHENYTOIN, SEVERE CONFUSION; VIOXX, RASH; HEMORRHEOLOGIC AGENTS, ALLERGIES; CONTRAST DYE, ANAPHYLACTIC REACTION; LORCET, ALLERGY; CODEINE, CONFUSION. REVIEW OF SYSTEMS: GENERAL: The patient denies fever or chills. Reports fatigue, general weakness, decreased appetite. HEENT: No acute visual changes or hearing changes. RESPIRATORY: As per HPI. CARDIAC: Denies chest pain, chest heaviness, pain with breathing, orthopnea, or leg swelling. Reports dyspnea on exertion. GENITOURINARY: No dysuria, hematuria, frequency, urgency, or incontinence. GI: No nausea, vomiting, abdominal pain, diarrhea, or constipation. Reports reflux symptoms. MUSCULOSKELETAL: Reports intermittent arthralgia and stiffness. No joint swelling or redness. SKIN: No rashes. No lesions. NEURO: No focal paralysis or numbness/paresthesia. PSYCH: Reports depression and anxiety under psychiatrist. Denies hallucinations, suicidal thoughts, ideations or plans. She is followed by [facility] in [facility]. PHYSICAL EXAMINATION: VITAL SIGNS: Blood pressure 145/73, temperature 97.5, pulse 85, respirations 20 , and O2 saturation 98% on room air. Weight 127 pounds and 8 ounces. Height 5 feet and 4 inches. GENERAL: The patient is awake, alert, and oriented x3, not in distress, generally weak looking, frail, elderly. HEENT: Normocephalic and atraumatic. PERRL. Intact EOMI. Non icteric sclerae. Mucosa is moist. No oral lesions. Tongue in the midline. No tremors. NECK: Supple. No LAD. No JVD. No bruit. CHEST: Normal excursion. Prolonged expiratory phase. No rales. No wheezes. No crackles. GI: Flat. Normoactive bowel sounds. Nondistended and nontender. Negative CVA tenderness bilaterally. No rebound. No rigidity. EXTREMITIES: No edema. No cyanosis. NEUROLOGIC: Nonfocal. DTRs 2+. Gait unsteady. SKIN: Intact. No rashes. No lesions. PSYCH: Appears calm with appropriate demeanor and affect. RECENT LABORATORY DATA AND TESTS: Chest CT/thorax CTA on 04/04/2018, negative for PE. Recent labs; WBC 5.2, hemoglobin 12.2, platelets 142. Sodium 139, potassium 3.8 , BUN 16, creatinine 0.86, calcium 9.8, lactic acid 3.1, phosphorus 2.7. ASSESSMENT AND PLAN: 1. Deconditioning/general weakness. 2. Flu pneumonia. 3. Acute chronic obstructive pulmonary disease exacerbation. 4. acute on chronic respiratory failure with hypoxia, O2 dependent. 5. Hypertension, 6. Normocytic normochromic anemia. 7. History of hypokalemia, hypophosphatemia, and lactic acidosis. 8. Tobacco abuse disorder. 9. Unsteadiness of gait. PLAN: The patient is admitted to [facility] for purposes of skilled rehab. PT/OT consult to gain modified independence with household ambulation, weightbearing as tolerated. OT to get modified independence with self-care, ADL skills. The patient's medication will be continued as modified per this. O2 to keep O2 saturations 90% and above. DuoNeb treatment q.6 p.r.n. Nicotine patch daily. VTE prophylaxis with SCDs. GI prophylaxis with PPI. I will monitor the patient for any medical comorbidities that may interfere with rehab progress. Estimated length of stay, 1 to 2 weeks. Code status: the patient reports FULL CODE.. Job ID: [id number] MTDD
[2018-04-16] MEDS: Budesonide 0.5 MG/2 ML NEB NEB SCH ×2 (06:46→18:14)
[2018-04-16] MEDS: busPIRone HCl 5 MG TAB PO SCH (08:24)
[2018-04-16] MEDS: Aspirin Chewable 81 MG TAB PO SCH (08:24)
[2018-04-16] MEDS: Amlodipine 5 MG TAB PO SCH (08:24)
[2018-04-16] MEDS: Saccharomyces boulardii 250 MG CAP PO SCH (08:24)
[2018-04-16] MEDS: guaiFENesin ER 600 MG TAB PO SCH ×2 (08:25→20:19)
[2018-04-16] MEDS: Loratadine 10 MG TAB PO SCH (08:25)
[2018-04-16] MEDS: Escitalopram Oxalate 10 mg Tablet PO SCH (08:25)
[2018-04-16] MEDS: predniSONE 20 MG TAB PO SCH ×2 (08:25→17:24)
[2018-04-16] MEDS: Nicotine 21 MG PATCH TD SCH (18:14)
[2018-04-16] MEDS: traZODone HCl 50 MG TAB PO SCH (20:20)
[2018-04-17] MEDS: Budesonide 0.5 MG/2 ML NEB NEB SCH ×2 (08:02→18:16)
[2018-04-17] MEDS ORDERED: Nicotine 21 MG PATCH TD SCH (09:00)
[2018-04-17] MEDS: Aspirin Chewable 81 MG TAB PO SCH (09:33)
[2018-04-17] MEDS: Amlodipine 5 MG TAB PO SCH (09:33)
[2018-04-17] MEDS: busPIRone HCl 5 MG TAB PO SCH (09:34)
[2018-04-17] MEDS: guaiFENesin ER 600 MG TAB PO SCH ×2 (09:35→19:30)
[2018-04-17] MEDS: Escitalopram Oxalate 10 mg Tablet PO SCH (09:35)
[2018-04-17] MEDS: Loratadine 10 MG TAB PO SCH (09:36)
[2018-04-17] MEDS: Saccharomyces boulardii 250 MG CAP PO SCH (09:36)
[2018-04-17] MEDS: Nicotine 21 MG PATCH TD SCH (18:16)
[2018-04-17] MEDS: traZODone HCl 50 MG TAB PO SCH (19:30)
[2018-04-18] MEDS: Budesonide 0.5 MG/2 ML NEB NEB SCH ×2 (06:11→18:00)
[2018-04-18] MEDS: Escitalopram Oxalate 10 mg Tablet PO SCH (08:08)
[2018-04-18] MEDS: busPIRone HCl 5 MG TAB PO SCH (08:09)
[2018-04-18] MEDS: guaiFENesin ER 600 MG TAB PO SCH ×2 (08:09→20:14)
[2018-04-18] MEDS: Loratadine 10 MG TAB PO SCH (08:09)
[2018-04-18] MEDS: Amlodipine 5 MG TAB PO SCH (08:09)
[2018-04-18] MEDS: Aspirin Chewable 81 MG TAB PO SCH (08:09)
[2018-04-18] MEDS: Saccharomyces boulardii 250 MG CAP PO SCH (08:11)
[2018-04-18] MEDS: Nicotine 21 MG PATCH TD SCH (17:35)
[2018-04-18] MEDS: traZODone HCl 50 MG TAB PO SCH (20:13)
[2018-04-19] MEDS: Budesonide 0.5 MG/2 ML NEB NEB SCH ×2 (07:15→18:07)
[2018-04-19] MEDS: busPIRone HCl 5 MG TAB PO SCH (08:25)
[2018-04-19] MEDS: Escitalopram Oxalate 10 mg Tablet PO SCH (08:25)
[2018-04-19] MEDS: Aspirin Chewable 81 MG TAB PO SCH (08:25)
[2018-04-19] MEDS: guaiFENesin ER 600 MG TAB PO SCH ×2 (08:25→21:20)
[2018-04-19] MEDS: Saccharomyces boulardii 250 MG CAP PO SCH (08:26)
[2018-04-19] MEDS: Loratadine 10 MG TAB PO SCH (08:26)
[2018-04-19] MEDS: Amlodipine 5 MG TAB PO SCH (08:26)
[2018-04-19] MEDS: Nicotine 21 MG PATCH TD SCH (18:07)
[2018-04-19] MEDS: traZODone HCl 50 MG TAB PO SCH (21:20)
[2018-04-20] MEDS: Budesonide 0.5 MG/2 ML NEB NEB SCH ×2 (06:05→18:05)
[2018-04-20] MEDS: guaiFENesin ER 600 MG TAB PO SCH ×2 (08:17→20:12)
[2018-04-20] MEDS: Saccharomyces boulardii 250 MG CAP PO SCH (08:17)
[2018-04-20] MEDS: busPIRone HCl 5 MG TAB PO SCH (08:17)
[2018-04-20] MEDS: Aspirin Chewable 81 MG TAB PO SCH (08:17)
[2018-04-20] MEDS: Loratadine 10 MG TAB PO SCH (08:18)
[2018-04-20] MEDS: Amlodipine 5 MG TAB PO SCH (08:18)
[2018-04-20] MEDS: Escitalopram Oxalate 10 mg Tablet PO SCH (08:18)
[2018-04-20] MEDS: Nicotine 21 MG PATCH TD SCH (18:05)
[2018-04-20] MEDS: traZODone HCl 50 MG TAB PO SCH (20:12)
[2018-04-20] MEDS: Acetaminophen 325 MG TAB PO PRN (20:12)
[2018-04-21] MEDS: Budesonide 0.5 MG/2 ML NEB NEB SCH ×2 (07:48→18:19)
[2018-04-21] MEDS: busPIRone HCl 5 MG TAB PO SCH (07:50)
[2018-04-21] MEDS: Amlodipine 5 MG TAB PO SCH (07:50)
[2018-04-21] MEDS: Aspirin Chewable 81 MG TAB PO SCH (07:50)
[2018-04-21] MEDS: guaiFENesin ER 600 MG TAB PO SCH ×2 (07:50→20:51)
[2018-04-21] MEDS: Loratadine 10 MG TAB PO SCH (07:50)
[2018-04-21] MEDS: Saccharomyces boulardii 250 MG CAP PO SCH (07:50)
[2018-04-21] MEDS: Escitalopram Oxalate 10 mg Tablet PO SCH (07:50)
[2018-04-21] MEDS: Acetaminophen 325 MG TAB PO PRN ×2 (17:33→20:51)
[2018-04-21] MEDS: Nicotine 21 MG PATCH TD SCH (17:33)
[2018-04-21] MEDS: traZODone HCl 50 MG TAB PO SCH (20:51)
[2018-04-22] MEDS: Amlodipine 5 MG TAB PO SCH (08:33)
[2018-04-22] MEDS: busPIRone HCl 5 MG TAB PO SCH (08:33)
[2018-04-22] MEDS: Escitalopram Oxalate 10 mg Tablet PO SCH (08:33)
[2018-04-22] MEDS: Loratadine 10 MG TAB PO SCH (08:33)
[2018-04-22] MEDS: Saccharomyces boulardii 250 MG CAP PO SCH (08:33)
[2018-04-22] MEDS: guaiFENesin ER 600 MG TAB PO SCH ×2 (08:33→20:26)
[2018-04-22] MEDS: Aspirin Chewable 81 MG TAB PO SCH (08:33)
[2018-04-22] MEDS: Budesonide 0.5 MG/2 ML NEB NEB SCH ×2 (08:35→18:00)
[2018-04-22 11:43] VITALS: BMI 22.9
[2018-04-22] MEDS: Nicotine 21 MG PATCH TD SCH (18:00)
[2018-04-22] MEDS: Acetaminophen 325 MG TAB PO PRN (20:26)
[2018-04-22] MEDS: traZODone HCl 50 MG TAB PO SCH (20:26)
[2018-04-23] MEDS: Acetaminophen 325 MG TAB PO PRN ×2 (05:11→19:44)
[2018-04-23] MEDS: Budesonide 0.5 MG/2 ML NEB NEB SCH ×2 (07:34→19:44)
[2018-04-23] MEDS: Loratadine 10 MG TAB PO SCH (08:35)
[2018-04-23] MEDS: Saccharomyces boulardii 250 MG CAP PO SCH (08:35)
[2018-04-23] MEDS: busPIRone HCl 5 MG TAB PO SCH (08:35)
[2018-04-23] MEDS: guaiFENesin ER 600 MG TAB PO SCH ×2 (08:36→20:39)
[2018-04-23] MEDS: Amlodipine 5 MG TAB PO SCH (08:36)
[2018-04-23] MEDS: Escitalopram Oxalate 10 mg Tablet PO SCH (08:36)
[2018-04-23] MEDS: Aspirin Chewable 81 MG TAB PO SCH (08:37)
[2018-04-23 09:54] LABS: ALT (SGPT) 17 U/L (8-55); AST (SGOT) 10 U/L (5-34); Albumin 3.5 g/dL (3.4-4.8); Alkaline Phosphatase 73 U/L (40-150); Anion Gap 18 mmol/L (10-20); BUN (Urea Nitrogen) 17 mg/dL (9.8-20.1); Bilirubin, Total 0.5 mg/dL (0.2-1.2); Calc. Creatinine Clearance 44 mL/min (70-130); Calcium 9.9 mg/dL (7.8-10.44); Carbon Dioxide 22 mmol/L (23-31); Chloride 104 mmol/L (98-107); Estimated GFR-MDRD 55; Globulin 3.3 g/dL (2.4-3.5); Glucose 137 mg/dL (83-110); Potassium 4.4 mmol/L (3.5-5.1); Protein, Total 6.8 g/dL (6.0-8.3); Sodium 140 mmol/L (136-145)
[2018-04-23 10:20] LABS: #Basophils 0.1 thou/uL (0.0-0.2); #Eosinphils 0.1 thou/uL (0.0-0.7); #Lymphocytes 0.9 thou/uL (1.20-3.40); #Monocytes 0.6 thou/uL (0.11-0.59); %Basophils 0.9 % (0.0-1.0); %Eosinophils 0.8 % (0.0-10.0); %Lymphocytes 11.9 % (21.0-51.0); %Monocytes 7.8 % (0.0-10.0); %Neutrophils 78.6 % (42.0-75.0); Hemoglobin 10.8 g/dL (12.0-16.0); Hypochromia SLIGHT = 6-15 cells (100X) (0-5/hpf); MDiff Complete? YES; Mean Corpuscular HGB CONC 32.8 g/dL (32.0-36.0); Mean Corpuscular Hemoglobin 30.8 pg (27.0-31.0); Mean Corpuscular Volume 94.1 fL (78.0-98.0); Mean Platelet Volume 7.8 fL (7.4-10.4); Platelet Count 95 thou/uL (130-400); Platelet Morphology Comment Appears Decreased; White Blood Cell (WBC) Count 7.6 thou/uL (4.8-10.8)
--- NOTE | 2018-04-23 11:21 | RAD ---
TWO VIEWS CHEST: DATE: 04/23/2018. PROVIDED CLINICAL HISTORY: Fever. FINDINGS: Comparison is made with the study dated 04/04/2018. Cardiac and mediastinal silhouette is within norm al limits. Vascular calcification involves the aortic arch. No focal consolidation, pleural fluid, or pneumothorax apparent. IMPRESSION: No evidence for an acute cardiopulmonary process. POS: [facility]
[2018-04-23 11:31] LABS: Bilirubin Negative (Negative); Blood, Urine Negative (Negative); Glucose, Urine (Dipstick) Negative (Negative); Leukocyte Trace (Negative); Nitrite Negative (Negative); Protein, Urine (Dipstick) Trace mg/dL (Neg-Trace); Specific Gravity, Urine 1.015 (1.005-1.030); Urobilinogen 0.2 mg/dL (0.2-1.0)
[2018-04-23 12:06] LABS: Bacteria/HPF 1+ HPF (None Seen); Clarity Hazy (Clear); RBC/HPF 0-3 HPF (0-3); Urine Culture Reflex No No
[2018-04-23] MEDS: Nicotine 21 MG PATCH TD SCH (18:13)
[2018-04-23] MEDS: traZODone HCl 50 MG TAB PO SCH (20:39)
[2018-04-24] MEDS: Budesonide 0.5 MG/2 ML NEB NEB SCH ×2 (06:10→18:57)
[2018-04-24] MEDS: busPIRone HCl 5 MG TAB PO SCH (08:32)
[2018-04-24] MEDS: guaiFENesin ER 600 MG TAB PO SCH ×2 (08:32→20:31)
[2018-04-24] MEDS: Aspirin Chewable 81 MG TAB PO SCH (08:32)
[2018-04-24] MEDS: Amlodipine 5 MG TAB PO SCH (08:33)
[2018-04-24] MEDS: Loratadine 10 MG TAB PO SCH (08:33)
[2018-04-24] MEDS: Saccharomyces boulardii 250 MG CAP PO SCH (08:33)
[2018-04-24] MEDS: Escitalopram Oxalate 10 mg Tablet PO SCH (08:33)
[2018-04-24] MEDS: Nicotine 21 MG PATCH TD SCH (17:39)
[2018-04-24] MEDS: Acetaminophen 325 MG TAB PO PRN (19:23)
[2018-04-24 19:43] LABS: #Lymphocytes 0.9 thou/uL (1.20-3.40); #Monocytes 0.4 thou/uL (0.11-0.59); #Neutrophils 3.5 thou/uL (1.40-6.50); %Basophils 0.8 % (0.0-1.0); %Eosinophils 0.9 % (0.0-10.0); %Lymphocytes 17.7 % (21.0-51.0); %Neutrophils 71.5 % (42.0-75.0); Hemoglobin 9.2 g/dL (12.0-16.0); Mean Corpuscular HGB CONC 34.3 g/dL (32.0-36.0); Mean Corpuscular Hemoglobin 31.8 pg (27.0-31.0); Mean Corpuscular Volume 92.7 fL (78.0-98.0); Mean Platelet Volume 7.8 fL (7.4-10.4); Platelet Count 111 thou/uL (130-400); Platelet Morphology Comment Appears Decreased; RBC Distribution Width 12.5 % (11.5-14.5); White Blood Cell (WBC) Count 4.9 thou/uL (4.8-10.8)
[2018-04-24 19:44] LABS: Lactic Acid 1.3 mmol/L (0.5-2.2)
[2018-04-24 19:48] LABS: Anion Gap 14 mmol/L (10-20); BUN (Urea Nitrogen) 18 mg/dL (9.8-20.1); Calc. Creatinine Clearance 47 mL/min (70-130); Calcium 9.6 mg/dL (7.8-10.44); Carbon Dioxide 25 mmol/L (23-31); Chloride 105 mmol/L (98-107); Estimated GFR-MDRD 59; Glucose 101 mg/dL (83-110); Potassium 4.6 mmol/L (3.5-5.1); Sodium 139 mmol/L (136-145)
[2018-04-24] MEDS: traZODone HCl 50 MG TAB PO SCH (20:31)
[2018-04-25] MEDS: Budesonide 0.5 MG/2 ML NEB NEB SCH ×2 (06:32→18:03)
[2018-04-25] MEDS: Amlodipine 5 MG TAB PO SCH (08:32)
[2018-04-25] MEDS: busPIRone HCl 5 MG TAB PO SCH (08:32)
[2018-04-25] MEDS: Loratadine 10 MG TAB PO SCH (08:33)
[2018-04-25] MEDS: Saccharomyces boulardii 250 MG CAP PO SCH (08:33)
[2018-04-25] MEDS: Aspirin Chewable 81 MG TAB PO SCH (08:33)
[2018-04-25] MEDS: guaiFENesin ER 600 MG TAB PO SCH ×2 (08:33→20:35)
[2018-04-25] MEDS: Escitalopram Oxalate 10 mg Tablet PO SCH (08:33)
[2018-04-25] MEDS: Nicotine 21 MG PATCH TD SCH (18:03)
[2018-04-25] MEDS: traZODone HCl 50 MG TAB PO SCH (20:35)
[2018-04-26] MEDS: Budesonide 0.5 MG/2 ML NEB NEB SCH ×2 (06:09→17:40)
[2018-04-26] MEDS: guaiFENesin ER 600 MG TAB PO SCH ×2 (08:45→20:43)
[2018-04-26] MEDS: Aspirin Chewable 81 MG TAB PO SCH (08:45)
[2018-04-26] MEDS: Amlodipine 5 MG TAB PO SCH (08:45)
[2018-04-26] MEDS: Loratadine 10 MG TAB PO SCH (08:46)
[2018-04-26] MEDS: Escitalopram Oxalate 10 mg Tablet PO SCH (08:46)
[2018-04-26] MEDS: Saccharomyces boulardii 250 MG CAP PO SCH (08:48)
[2018-04-26] MEDS: busPIRone HCl 5 MG TAB PO SCH (08:48)
[2018-04-26] MEDS: Nicotine 21 MG PATCH TD SCH (17:39)
[2018-04-26] MEDS: Acetaminophen 325 MG TAB PO PRN (18:17)
[2018-04-26] MEDS: traZODone HCl 50 MG TAB PO SCH (20:43)
[2018-04-27] MEDS ORDERED: Benzonatate 100 MG CAP PO SCH (01:00)
[2018-04-27] MEDS: Budesonide 0.5 MG/2 ML NEB NEB SCH ×2 (06:10→19:57)
[2018-04-27] MEDS: Amlodipine 5 MG TAB PO SCH (08:19)
[2018-04-27] MEDS: guaiFENesin ER 600 MG TAB PO SCH ×2 (08:19→20:00)
[2018-04-27] MEDS: busPIRone HCl 5 MG TAB PO SCH (08:20)
[2018-04-27] MEDS: Escitalopram Oxalate 10 mg Tablet PO SCH (08:20)
[2018-04-27] MEDS: Loratadine 10 MG TAB PO SCH (08:20)
[2018-04-27] MEDS: Saccharomyces boulardii 250 MG CAP PO SCH (08:20)
[2018-04-27] MEDS: Benzonatate 100 MG CAP PO SCH ×3 (08:20→20:00)
[2018-04-27] MEDS: Nicotine 21 MG PATCH TD SCH (17:58)
[2018-04-27] MEDS: traZODone HCl 50 MG TAB PO SCH (20:00)
[2018-04-27] MEDS: Acetaminophen 325 MG TAB PO PRN (23:19)
[2018-04-28] MEDS: Budesonide 0.5 MG/2 ML NEB NEB SCH ×2 (07:20→19:13)
[2018-04-28] MEDS: guaiFENesin ER 600 MG TAB PO SCH ×2 (08:21→20:05)
[2018-04-28] MEDS: Saccharomyces boulardii 250 MG CAP PO SCH (08:21)
[2018-04-28] MEDS: Escitalopram Oxalate 10 mg Tablet PO SCH (08:21)
[2018-04-28] MEDS: Benzonatate 100 MG CAP PO SCH ×2 (08:21→14:37)
[2018-04-28] MEDS: Loratadine 10 MG TAB PO SCH (08:22)
[2018-04-28] MEDS: busPIRone HCl 5 MG TAB PO SCH (08:22)
[2018-04-28] MEDS: Amlodipine 5 MG TAB PO SCH (08:22)
[2018-04-28] MEDS ORDERED: Amlodipine 5 MG TAB PO SCH (10:15)
[2018-04-28] MEDS: Nicotine 21 MG PATCH TD SCH (17:35)
[2018-04-28] MEDS: traZODone HCl 50 MG TAB PO SCH (20:05)
[2018-04-29 05:29] LABS: Hemoglobin 9.6 g/dL (12.0-16.0); Platelet Count 192 thou/uL (130-400)
[2018-04-29] MEDS: Budesonide 0.5 MG/2 ML NEB NEB SCH ×2 (06:05→18:55)
[2018-04-29] MEDS: busPIRone HCl 5 MG TAB PO SCH (08:25)
[2018-04-29] MEDS: guaiFENesin ER 600 MG TAB PO SCH ×2 (08:26→20:33)
[2018-04-29] MEDS: Saccharomyces boulardii 250 MG CAP PO SCH (08:26)
[2018-04-29] MEDS: Escitalopram Oxalate 10 mg Tablet PO SCH (08:26)
[2018-04-29] MEDS: Loratadine 10 MG TAB PO SCH (08:26)
[2018-04-29] MEDS ORDERED: Aspirin 81 mg Enteric Coated Tablet PO SCH (13:00)
[2018-04-29] MEDS: Nicotine 21 MG PATCH TD SCH (18:55)
[2018-04-29] MEDS: traZODone HCl 50 MG TAB PO SCH (20:32)
[2018-04-30] MEDS: Budesonide 0.5 MG/2 ML NEB NEB SCH (07:31)
[2018-04-30 08:41] VITALS: BP 111/58; TEMP 98.8
[2018-04-30] MEDS ORDERED: Aspirin 81 mg Enteric Coated Tablet PO SCH (09:00)
[2018-04-30] MEDS: guaiFENesin ER 600 MG TAB PO SCH (09:50)
[2018-04-30] MEDS: Loratadine 10 MG TAB PO SCH (09:50)
[2018-04-30] MEDS: Escitalopram Oxalate 10 mg Tablet PO SCH (09:50)
[2018-04-30] MEDS: busPIRone HCl 5 MG TAB PO SCH (09:50)
[2018-04-30] MEDS: Saccharomyces boulardii 250 MG CAP PO SCH (09:51)
--- NOTE | 2018-05-03 11:18 | DIS ---
DATE OF ADMISSION: 04/15/2018 DATE OF DISCHARGE: 04/30/2018 REASON FOR ADMISSION: Skilled rehab in [facility] posthospitalization. DISPOSITION: Home with family. CONDITION ON DISCHARGE: Stable. DIAGNOSES: 1. Deconditioning secondary to general weakness. 2. Unsteady gait. 3. Acute on chronic COPD exacerbation. 4. Recent history of flu pneumonia treated as inpatient at [facility]. 5. Acute on chronic respiratory failure with hypoxia, O2 requiring, improved, now tolerating room air. 6. Tobacco abuse. 7. History of recent hypokalemia, hypophosphatemia, and lactic acidosis; resolved. 8. Hypertension, improved, improved BP without antihypertensive secondary to low blood pressure. 9. Normocytic normochromic anemia, chronic. 10. Anxiety, depression, chronic insomnia. MEDICATIONS: 1. Nicotine patch 21 mg per patch daily for 7 more days, then 14 mg daily patch for 4 weeks, then 7 mg patch daily for 4 weeks. 2. DuoNeb q.4 hours p.r.n. for shortness of breath and wheezing. 3. Buspirone 10 mg p.o. daily. 4. Citalopram 10 mg p.o. daily. 5. Mucinex 600 mg p.o. b.i.d. p.r.n. 6. Trazodone 50 mg p.o. q.h.s. 7. Budesonide two puffs b.i.d. DIET: Regular. ACTIVITY: To use rolling walker at all times, fall precaution, safety prevention. DISCHARGE INSTRUCTIONS: 1. Follow up with Dr. Hu/PCP in 1 to 2 weeks or sooner with concern. 2. Repeat CT scan of the chest as an outpatient in 3 to 4 months for monitoring of pulmonary nodule. HISTORY OF THE PRESENT ILLNESS AND HOSPITAL COURSE: Ms. Canada is a very pleasant 82-year-old female with history of chronic tobacco use, COPD, intermittent use of oxygen at home, hypertension. The patient was initially admitted to [facility] for shortness of breath and persistent cough on April 04, 2018, and was discharged on 04/09/2018. She was treated with IV antibiotic that was later changed to oral Levaquin. She also received oral prednisone that she completed at home postdischarge. When she followed up in the clinic for a week hospital followup, the patient was noted to be short of breath with O2 down to 84 at room air. At that time, she did not bring her oxygen tank. O2 improved greater than 94% on 2 L per nasal cannula. During the clinic visit, family and the patient report that she remains generally weak, easily gets short of breath upon exertion. She could hardly move around at home, and she is still not doing well. After discussion about her symptoms and concerns, the patient and family concur to be admitted to [facility] for skilled rehab posthospitalization secondary to deconditioning from general weakness. In rehab, the patient completed her oral antibiotic and oral prednisone. She continued her bronchodilator, and O2 was initially placed continuously and did well. During her rehab course, the patient was noticeably having intermittent shortness of breath, fatigue during exercises and ambulation. Overall functional status improved markedly over time. She tolerated room air without significant respiratory issues. She still needs to be on bronchodilator almost on a scheduled basis. During this rehab course, the patient developed a low-grade fever from 99 to 101 T-max. This is associated with chills. Temperature spikes notably in the late afternoon or evening time. Septic workup was done, it came back negative for culture. No significant leukocytosis. Negative urinalysis with negative urine culture. Her blood culture came back with one specimen positive for coagulase-negative Staphylococcus, which was deemed to be a contaminant. Otherwise, the other blood culture came back negative. Chest x-ray was unremarkable. The patient was monitored and observed. She was encouraged to increase fluid intake initially. She was also discouraged to increase the temperature at nighttime more than 80 degrees. The patient has been febrile free 4 to 5 days prior to discharge, doing well. She was walking 400 to 450 feet using a rolling walker with contact guard assist. Dyspnea on exertion eventually improved. Her O2 saturations ran in the low 90s to 94 and above at room air. It easily goes down to high 80s to low 90s with exertion, that improved with rest. In the patient's last hospitalization at [facility], CTA was reported to have an irregular parenchymal density measuring about 9 mm in the right lower lobe that could be a focal area of scarring versus developing pneumonitis. Followup of the resolution is recommended. An additional tiny pulmonary nodule is seen in the right upper lobe with a nodular pleural-based density at the right lung base. There was also a nonspecific mediastinal and hilar lymphadenopathy, which could be evaluated on followup. Followup examination in 3 to 4 months is recommended to ensure resolution of the irregular parenchymal nodular density in the right lower lobe. The CT findings were discussed with the patient in the presence of her family represented by Betsy, the great-granddaughter and her , Aj Gonzalez, who were both the patient's primary caretakers at home. Family voiced understanding and will follow this up as an outpatient. On 04/30/2018, the patient is feeling well. She is adamant to go home. During this hospitalization, the patient has not been smoking with the use of nicotine patch, thus the patient is encouraged to continue nicotine patch at home with the help of the caregivers, who both agreed. Of note, the patient's blood pressure during this hospitalization ran in the low 100s to 120s. With episodes of low blood pressure of 98 over 50 to 54. Amlodipine 10 mg p.o. daily was discontinued. Her blood pressure thereafter without the antihypertensive ran in the 120s over 70s to 80s without significant symptoms. The patient was encouraged to hold off her amlodipine until re-evaluated in the clinic. Further recommendations depending on the blood pressure at that time. Family voiced understanding. Prior to discharge, the patient's medications were reconciled with the family in the presence of her caretakers. Vital signs prior to discharge; blood pressure 111/58, temp 98.8, pulse 80, respirations 20, O2 saturations 96% at room air, weight 132 pounds 9 ounces (baseline weight 127 pounds 8 ounces), height 5 feet 4 inches. Job ID: [id number]
== END 2018-04-30 13:50 | disposition home or self-care (01) | DRG 193 ==
LOC: OBSVTOIN 10:00 → MADMS 10:00
PROVIDERS: ADMIT Family Medicine; ATTEND Family Medicine
DX: J10.00 Influenza due to other identified influenza virus with unspecified type of pneumonia (principal); J96.21 Acute and chronic respiratory failure with hypoxia; Z99.81 Dependence on supplemental oxygen; R53.1 Weakness; R26.89 Other abnormalities of gait and mobility; R59.0 Localized enlarged lymph nodes; R50.9 Fever, unspecified; R91.1 Solitary pulmonary nodule; I11.0 Hypertensive heart disease with heart failure; Z86.73 Personal history of transient ischemic attack (TIA), and cerebral infarction without residual deficits; E78.00 Pure hypercholesterolemia, unspecified; F41.8 Other specified anxiety disorders; M19.90 Unspecified osteoarthritis, unspecified site; I50.9 Heart failure, unspecified; G47.00 Insomnia, unspecified; D64.9 Anemia, unspecified; F17.210 Nicotine dependence, cigarettes, uncomplicated; Z87.440 Personal history of urinary (tract) infections; Z87.11 Personal history of peptic ulcer disease; K21.9 Gastro-esophageal reflux disease without esophagitis; Z79.2 Long term (current) use of antibiotics; Z79.52 Long term (current) use of systemic steroids; Z88.5 Allergy status to narcotic agent; Z88.8 Allergy status to other drugs, medicaments and biological substances; Z88.1 Allergy status to other antibiotic agents; Z91.041 Radiographic dye allergy status
CPT/HCPCS: 36415; 71046; 80048; 80053; 81001; 83605; 85014; 85018; 85025; 85049; 87040; 87086; 87149; 94640; J7620; J7626

== ENCOUNTER 2018-06-22 14:39 | Outpatient (CLI) | payer MEDICARE ==
--- NOTE | 2018-06-22 15:47 | CT ---
EXAM: Chest CT scan without contrast: HISTORY: Follow-up pulmonary nodule COMPARISON: 04/04/2018 FINDINGS: Borderline size mediastinal nodes including a 0.7 cm pretracheal node and a 0.6 cm AP window node bot h decreasing in size from the prior study .Small stable right upper lobe pulmonary nodule. Small stable left pleural-based nodule, stable Small area of parenchymal density in the right lower lobe, poorly defined, stable. No evidence for acute pulmonary parenchymal process. No pleural or pericardial effusion. The visualized upper abdomen is unremarkable. IMPRESSION: Small stable pulmonary nodules and right lower lobe parenchymal density. Small to borderline sized mediastinal lymph nodes, decreased in size from prior study. Consider 6 month follow up chest CT scan for further assessment.
== END 2018-06-22 14:40 | disposition home or self-care (01) ==
LOC: MADCT 14:39
PROVIDERS: ATTEND Family Medicine
DX: R91.8 Other nonspecific abnormal finding of lung field (principal); J98.4 Other disorders of lung
CPT/HCPCS: 71250

== ENCOUNTER 2018-07-19 11:58 | Inpatient (IN) | payer MEDICARE ==
[2018-07-19] MEDS ORDERED: Aspirin Chewable 81 MG TAB ONE (12:14)
--- NOTE | 2018-07-19 12:23 | RAD ---
Portable frontal chest radiograph: 07/19/2018 COMPARISON: 02/26/2017 HISTORY: Chest pain FINDINGS: Lungs are clear. Heart and mediastinal contours appear within normal limits. IMPRESSION: No acute findings. Mild hyperinflation noted with mild increased linear interstitial dens ity, stable. Postoperative anchors overlie the left shoulder. Atherosclerotic calcification of the aortic arch noted. No pneumothorax or pleural fluid. No focal consolidation or alveolar edema. IMPRESSION: Chronic findings as detailed above.
[2018-07-19 12:41] LABS: #Basophils 0.1 thou/uL (0.0-0.2); #Monocytes 0.9 thou/uL (0.11-0.59); %Basophils 0.9 % (0.0-1.0); %Eosinophils 0.5 % (0.0-10.0); %Monocytes 9.6 % (0.0-10.0); %Neutrophils 66.9 % (42.0-75.0); Hemoglobin 14.3 g/dL (12.0-16.0); Mean Corpuscular HGB CONC 32.1 g/dL (32.0-36.0); Mean Corpuscular Hemoglobin 28.6 pg (27.0-31.0); Mean Corpuscular Volume 89.1 fL (78.0-98.0); Mean Platelet Volume 6.7 fL (7.4-10.4); Platelet Count 225 thou/uL (130-400); RBC Distribution Width 12.4 % (11.5-14.5); Red Blood Cell (RBC) Count 4.99 mill/uL (4.20-5.40)
[2018-07-19 12:53] LABS: ALT (SGPT) 7 U/L (8-55); AST (SGOT) 12 U/L (5-34); Albumin 4.1 g/dL (3.4-4.8); Alkaline Phosphatase 91 U/L (40-150); Anion Gap 15 mmol/L (10-20); BUN (Urea Nitrogen) 9 mg/dL (9.8-20.1); Bilirubin, Total 0.3 mg/dL (0.2-1.2); Calc. Creatinine Clearance 0 mL/min (70-130); Calcium 9.7 mg/dL (7.8-10.44); Carbon Dioxide 27 mmol/L (23-31); Chloride 103 mmol/L (98-107); Estimated GFR-MDRD 50; Globulin 3.5 g/dL (2.4-3.5); Glucose 117 mg/dL (83-110); Potassium 3.6 mmol/L (3.5-5.1); Protein, Total 7.6 g/dL (6.0-8.3); Sodium 141 mmol/L (136-145)
[2018-07-19] MEDS ORDERED: methylPREDNISolone Sod Succ/PF 125 MG/2 ML VIAL ONE (13:17)
[2018-07-19 14:57] LABS: Troponin I 0.017 ng/mL (< 0.028)
[2018-07-19 16:13] LABS: Lactic Acid 1.1 mmol/L (0.5-2.2)
[2018-07-19 16:41] VITALS: BMI 20.9
[2018-07-19] MEDS ORDERED: Diphenoxylate HCl/Atropine Tablet PO PRN (17:44)
[2018-07-19] MEDS ORDERED: traZODone HCl 50 MG TAB PO PRN (17:59)
[2018-07-19] MEDS ORDERED: Acetaminophen 325 MG TAB PO PRN (18:01)
[2018-07-19] MEDS ORDERED: Enoxaparin Sodium 40 MG/0.4 ML SYRINGE SC SCH (18:15)
[2018-07-19] MEDS ORDERED: Nicotine 21 MG PATCH TOP SCH (18:30)
[2018-07-19] MEDS ORDERED: Budesonide 0.5 MG/2 ML NEB NEB SCH (19:00)
[2018-07-19] MEDS: Mometasone/Formoterol 60 PUFF AER INH SCH (20:36)
[2018-07-19] MEDS: Mirtazapine 15 MG TAB PO SCH (20:38)
[2018-07-19] MEDS: Donepezil HCl 10 MG TAB PO SCH (20:38)
[2018-07-19] MEDS: methylPREDNISolone Sod Succ/PF 125 MG/2 ML VIAL IVP SCH (21:11)
[2018-07-20] MEDS: Promethazine DM 6.25-15mg/5ml 120 ML BOT PO PRN (01:52)
[2018-07-20] MEDS: methylPREDNISolone Sod Succ/PF 125 MG/2 ML VIAL IVP SCH (06:19)
[2018-07-20] MEDS: Mometasone/Formoterol 60 PUFF AER INH SCH ×2 (06:20→19:37)
[2018-07-20] MEDS: Saccharomyces boulardii 250 MG CAP PO SCH (08:38)
[2018-07-20] MEDS: Escitalopram Oxalate 10 mg Tablet PO SCH (08:38)
[2018-07-20] MEDS ORDERED: COLESTIPOL HCL 5 GM PO SCH (09:00)
[2018-07-20] MEDS: Mirtazapine 15 MG TAB PO SCH (20:48)
[2018-07-20] MEDS: Nicotine 21 MG PATCH TOP SCH (20:48)
[2018-07-20] MEDS: Donepezil HCl 10 MG TAB PO SCH (20:49)
[2018-07-21] MEDS: Mometasone/Formoterol 60 PUFF AER INH SCH ×2 (06:07→19:41)
[2018-07-21 06:08] LABS: #Lymphocytes 1.3 thou/uL (1.20-3.40); #Monocytes 0.6 thou/uL (0.11-0.59); #Neutrophils 9.5 thou/uL (1.40-6.50); %Basophils 0.2 % (0.0-1.0); %Lymphocytes 11.7 % (21.0-51.0); %Neutrophils 83.1 % (42.0-75.0); Hemoglobin 12.1 g/dL (12.0-16.0); Mean Corpuscular HGB CONC 32.7 g/dL (32.0-36.0); Mean Corpuscular Hemoglobin 28.7 pg (27.0-31.0); Mean Corpuscular Volume 87.8 fL (78.0-98.0); Mean Platelet Volume 6.5 fL (7.4-10.4); Platelet Count 194 thou/uL (130-400); RBC Distribution Width 12.2 % (11.5-14.5); Red Blood Cell (RBC) Count 4.21 mill/uL (4.20-5.40); White Blood Cell (WBC) Count 11.4 thou/uL (4.8-10.8)
[2018-07-21 06:13] LABS: Anion Gap 12 mmol/L (10-20); BUN (Urea Nitrogen) 16 mg/dL (9.8-20.1); Calc. Creatinine Clearance 43 mL/min (70-130); Calcium 9.6 mg/dL (7.8-10.44); Carbon Dioxide 29 mmol/L (23-31); Chloride 109 mmol/L (98-107); Estimated GFR-MDRD 58; Glucose 106 mg/dL (83-110); Potassium 3.5 mmol/L (3.5-5.1); Sodium 146 mmol/L (136-145)
--- NOTE | 2018-07-21 07:14 | PRG ---
DATE OF SERVICE: 07/20/2018 SUBJECTIVE: Dr. Hu had asked me to see Ms. Canada, whom she had admitted last evening. Dr. Hu was ill and could not come in today. The patient had presented initially to the clinic acutely short of breath with an oxygen saturation of 85 with diffuse wheezing and rhonchi on exam and obviously short of breath. She has a history of COPD and continued cigarette abuse. She was taken to the emergency room, where she was further evaluated. Chest x-ray was done and just showed hyperinflation and no evidence of any infiltrate. There was no nodule noted in the right base that had previously been seen on a previous hospitalization. The patient was started on IV Levaquin, IV methylprednisolone, and was continued on her nebulization treatments and supplemental O2. Dr. Hu checked on her late yesterday afternoon and she was feeling a lot better. She had developed little diarrhea for which she was placed on Florastor, probiotic, and also Imodium. The patient was seen this morning of 07/20/2018 and she says she is feeling a lot better. She says her cough is much better. She is not having any sputum production this morning and she has not even required her oxygen. She says she does not feel like she is wheezing and she has not had any fever through the night and she said the diarrhea has stopped. OBJECTIVE: GENERAL: The patient is sitting up on the edge of her bed. She is alert, talkative, looks younger than her stated age, and appears in no distress. VITAL SIGNS: Shows a temperature of 97.4, pulse 68, respirations 18, O2 saturation 94% on room air; blood pressure 174/73, last evening 150/69. LUNGS: The patient has good breath sounds. There was no wheezes, no rhonchi, no rales. HEART: Regular rate. EXTREMITIES: No edema. LABORATORY DATA: Her lactic acid level was repeated last evening since it was marginally elevated yesterday at 2.4. The repeat yesterday at approximately 4: 00 p.m. was 1.1. Her troponins were done and were all within normal limits. ASSESSMENT: 1. Chronic obstructive pulmonary disease with acute exacerbation;. a. Presenting with cough, shortness of breath, increased sputum production, and hypoxemia with x-ray without infiltrate. b. Treatment initiated with IV steroids, IV Levaquin, and nebulization treatments. c. Marked improvement with O2 saturation 94% on room air and lungs with good breath sounds and no wheezing as of 07/20/2018. 2. Chronic obstructive pulmonary disease. 3. Hypertension. 4. Cigarette abuse persist. 5. Diarrhea. a. Controlled. PLAN: The patient is doing much better this morning. We will continue her IV Levaquin and neb treatments. We will stop the IV methylprednisolone and start her on oral prednisone and allow the patient up ad cristy. Job ID: [id number] [facility]
--- NOTE | 2018-07-21 07:18 | HP ---
REASON FOR ADMISSION: Shortness of breath and wheezing. HISTORY OF THE PRESENT ILLNESS AND HOSPITAL COURSE: Ms. Canada is an 82-year- old female with known history of COPD and chronic respiratory failure , requiring intermittent O2 supplement per nasal cannula; hypertension; chronic tobacco abuse; anxiety; depression; and insomnia. The patient initially went to the clinic today complaining of persistent coughing for the last few days.Associated symptoms include productive greenish nonbloody sputum, wheezing , shortness of breath, and dizziness. The patient has been using her breathing treatment at home, the last time she used the breathing therapy was the night before. When she presented to the clinic, the patient was audibly wheezing , mildly tachypneic, with O2 sats down to 85-87% on room air. The patient reports that she has not been using her O2 supplement in a while due to she has been doing better. Admits to almost 2 to 2.5 packs a day of cigarette use lately. Granddaughter who lives with the patient also reports that the patient has been having unsteadiness in her gait and has fallen twice at home without sustaining major injury. The patient received DuoNeb x1 in the clinic that did some improvement on her respiratory status; however, the patient remained to have wheezing and poor air movements on respiration. Her O2 saturation improved to 96% on 2 L per nasal cannula at rest. The patient also reports that she has also been having mid chest discomfort/pain lately along with the shortness of breath and wheezing. The patient was subsequently referred to [facility] for further evaluation to rule out cardiac etiology. From the ER, initial evaluation showed cardiac enzymes within normal limits x2. White count 9. D- dimer is 0.91. Lactic acid 2.4. BNP 58.6. EKG showed normal sinus rhythm with a rate of 74 with premature atrial complexes, compared with previous EKG from , similar to old EKG; conduction is normal, ST segment is normal, P wave is normal, axis left, as interpreted by the ED physician. Chest x-ray showed no infiltrates, no pneumothorax, no hemothorax, no masses, no cardiomegaly, no congestive heart failure, no effusion, no free air. Medications received in the ER included Solu-Medrol injection 125 mg IV push, children's aspirin four tablets orally given, and Levaquin intravenous 750 mg IV. Per the ER physician, Dr. Cho, the D-dimer was similar to her D-dimer 3 months ago that required further imaging studies to rule out PE in [place], which turned out to be negative. ER physician also discussed with the patient and her familymerna, that her Wells score is zero suggesting very low risk (1.3% ) for PE and they really do not want to be transferred to [place] with this risk and they do understand the possible pulmonary embolus. The patient also had an elevated lactate, but had no other signs to suggest sepsis. It was discussed with the ER physician that the patient appears to have a simple COPD exacerbation. After her second troponin 3 hours after came back negative, she was deemed medically stable for admission in [facility] per the patient's request, thus admitted to [facility]. When examined in the floor, the patient is comfortably resting. She reports that she just had one bowel movement that was loose. The patient reports history of chronic diarrhea that is not controlled with recently initiated medicine of colestipol. Denies active chest pain, shortness of breath, pain with breathing, nausea, vomiting, or abdominal pain. PAST MEDICAL HISTORY: Hypertension; depression; anxiety; insomnia; history of migraine headaches; previous stroke; PUD; COPD; arthritis; CAD; history of recurrent UTI, previously on prophylactic antibiotic; CHF; basal cell carcinoma ; chronic loose bowel movements; diverticulitis; and dementia without behavioral disturbances. Small pulmonary nodules and right lower lobe parenchymal density with small borderline size mediastinal lymph nodes on CT scan done on 06/22/2018, stable from comparison of 04/04/[address] without contrast. PAST SURGICAL HISTORY: Tonsillectomy; tubal ligation;and cholecystectomy, laparoscopic. SOCIAL HISTORY: Lives at home with family. Smokes tobacco 1 to 2 packs a day. Denies alcohol use. Denies drug use. FAMILY HISTORY: Hypertension. ALLERGIES: KEFLEX, REACTION ANAPHYLAXIS; PHENYTOIN; SODIUM; ROFECOXIB; TICLOPIDINE; TRAMADOL; VALIUM, CONFUSION; VICODIN, CONFUSION; VIOXX; LATEX; NATURAL RUBBER; ADHESIVE TAPE; CODEINE, CONFUSION; DIAZEPAM; DILANTIN, SEVERE CONFUSION; HYDROCODONE; AND IV DYE, ANAPHYLACTIC REACTION. CURRENT MEDICATIONS: 1. DuoNeb every 6 hours p.r.n. 2. Budesonide 2 mL inhaled twice a day. 3. Citalopram 10 mg p.o. daily. 4. Remeron 15 mg half a tablet at bedtime. 5. Trazodone 50 mg two tablets at bedtime as needed. 6. Colestipol 5 g packet one packet mixed with water once a day. 7. Aricept 5 mg one time at bedtime. The patient admits that they did not receive a refill and thus she has not been taking the Aricept lately. REVIEW OF SYSTEMS: GENERAL: Denies fever or chills. Reports fatigue, general weakness, and unsteadiness. She denies anorexia, has a history of gradually steady weight loss. HEENT: Denies acute visual changes, hearing changes, cold symptoms. CARDIOVASCULAR: Reports chest pain as per HPI. Denies palpitations, syncope, PND , dyspnea on exertion. Reports dizziness. RESPIRATORY: Per HPI. Denies bloody sputum or pain with breathing. GI: Denies nausea, vomiting, rectal bleeding, hematochezia, melena, or constipation. Reports chronic loose bowel movements. GENITOURINARY: Denies dysuria, frequency, urgency, or incontinence. MUSCULOSKELETAL: Denies joint pain, swelling, low back pain. SKIN: Denies rash, pruritus, ulcers, or sores. NEURO: Denies no motor or sensory losses. Reports history of dementia without behavioral disturbances. ENDOCRINE: Denies heat or cold intolerance. HEMATOLOGY: Denies easy bruising. PSYCH: Reports anxiety, depression, and insomnia. Previously under senior psych care. PHYSICAL EXAMINATION: VITAL SIGNS: Temperature 97.3, pulse 78, respirations 22, O2 saturations 95% on room air, and BP 179/76. Weight 122 pounds and 5 ounces. Height 5 feet 4 inches. GENERAL: The patient is awake, alert, and oriented x3, comfortable on exam, mildly ill-looking, generally weak looking , frail elderly; not in acute distress. HEENT: Normocephalic and atraumatic. PERRLA. Intact EOM. Anicteric sclerae. Oral mucosa is moist. NECK: Supple. No LAD. No JVD. No bruit. CHEST: Mildly tachypneic, nonlabored breathing. Prolonged expiratory phase. No wheezes. No crackles. No rhonchi. No rales. CARDIOVASCULAR: Normal sinus rhythm. Normal S1 and S2. No murmurs. ABDOMEN: Obese, soft, nondistended. Normoactive bowel sounds. Nontender. No rebound or guarding. Negative CVA tenderness. No signs of peritonitis. SKIN: Normal skin turgor. Moist and warm. No rashes. No lesions. PSYCH: Appears calm with appropriate mood and affect. Cooperative. LABORATORY DATA: WBC 9, hemoglobin 14.3, hematocrit 44.4. D-dimer 0.91. Chemistries; sodium 141, potassium 3.6, chloride 103, BUN 9, creatinine 1.06, anion gap 15, glucose 117, estimated GFR 50. Lactic acid 2.4 at 1120 and repeat at 1555 of 1.1. ALT 7, AST 12, total bilirubin 0.4, and alkaline phosphatase 91. Troponin 0.016 at 1120, 0.017 at 1430. BNP 58.6. Albumin 4.1. IMAGING STUDIES: Chest x-ray as reported by radiologist, chronic findings with mild hyperinflation noted with mild increased linear interstitial density stable. Postoperative anchors overlie the left shoulder. Atherosclerotic calcification of the aortic arch noted. No pneumothorax or pleural fluid. No focal consolidations or alveolar edema. ASSESSMENT: 1. Acute chronic obstructive pulmonary disease exacerbation. 2. Acute bronchitis and chronic obstructive pulmonary disease. 3. Acute on chronic hypoxic respiratory failure, requiring intermittent O2 supplement per nasal cannula. 4. Chest discomfort/pain, likely noncardiac in etiology with unremarkable EKG and normal two sets of cardiac enzymes. 5. Chronic diarrhea. 6. Hypertension. 7. Major depressive disorder with anxiety, recurrent. 8. Anxiety. 9. Insomnia. 10. Adult failure to thrive. 11. General weakness. 12. Chronic tobacco use. 13. History of small pulmonary nodules, stable by CT scan from 04/04/2018 to 11/2018. 14. Coronary artery disease. 15. History of mildly elevated D-dimer at 0.9, stable. 16. Senile dementia without behavioral disturbances. PLAN: 1. The patient is admitted to med/surg for inpatient management of acute exacerbation of COPD with acute bronchitis. She will continue on empiric treatment with IV Levaquin. Continue on IV steroids, to taper off and possibly change to oral steroid as indicated. Continue breathing treatment as directed. O2, to keep O2 sats 90% and above. Continue home medications as modified per list. 2. GI prophylaxis with PPI. DVT prophylaxis with Lovenox. 3. We will add Lomotil for diarrhea control. 4. Further recommendations depending on hospital course. The patient may possibly be needing further skilled therapy post acute admission if she remains generally weak and deconditioned. 5. Code status, the patient reports FULL CODE. There is no family member to confirm this at this point, but this is consistent with patient's previous code status and her previous hospitalizations. We will confirm with the family once available. Job ID: [id number] MTDD
[2018-07-21] MEDS: Saccharomyces boulardii 250 MG CAP PO SCH (08:47)
[2018-07-21] MEDS: predniSONE 20 MG TAB PO SCH (08:48)
[2018-07-21] MEDS: Escitalopram Oxalate 10 mg Tablet PO SCH (08:48)
[2018-07-21] MEDS ORDERED: Cholestyramine/Aspartame 4 gm Packet PO SCH (09:00)
[2018-07-21] MEDS: Cholestyramine/Aspartame 4 gm Packet PO SCH (10:28)
[2018-07-21] MEDS ORDERED: Amlodipine 5 MG TAB PO SCH ×2 (12:45→19:30)
[2018-07-21] MEDS ORDERED: Enoxaparin Sodium 40 MG/0.4 ML SYRINGE SC SCH (16:15)
[2018-07-21] MEDS ORDERED: cloNIDine 0.1 MG TAB PO SCH (16:45)
[2018-07-21] MEDS ORDERED: ALPRAZolam 0.25 MG TAB PO PRN (18:49)
[2018-07-21] MEDS: Donepezil HCl 10 MG TAB PO SCH (20:57)
[2018-07-21] MEDS: Mirtazapine 15 MG TAB PO SCH (20:57)
[2018-07-21] MEDS: Nystatin Cream 15 GM TUBE TOP SCH (20:58)
[2018-07-21] MEDS: traZODone HCl 50 MG TAB PO SCH (20:59)
[2018-07-21] MEDS: Nicotine 21 MG PATCH TOP SCH (21:03)
[2018-07-22] MEDS: Mometasone/Formoterol 60 PUFF AER INH SCH ×2 (08:56→20:29)
[2018-07-22] MEDS: Enoxaparin Sodium 40 MG/0.4 ML SYRINGE SC SCH (08:58)
[2018-07-22] MEDS: Amlodipine 5 MG TAB PO SCH (08:58)
[2018-07-22] MEDS: Saccharomyces boulardii 250 MG CAP PO SCH (08:58)
[2018-07-22] MEDS: Escitalopram Oxalate 10 mg Tablet PO SCH (08:59)
[2018-07-22] MEDS: predniSONE 20 MG TAB PO SCH (08:59)
[2018-07-22] MEDS ORDERED: Amlodipine 5 MG TAB PO SCH (09:00)
[2018-07-22] MEDS: Nystatin Cream 15 GM TUBE TOP SCH ×2 (09:00→20:31)
[2018-07-22] MEDS: Promethazine DM 6.25-15mg/5ml 120 ML BOT PO PRN (09:00)
[2018-07-22] MEDS: Cholestyramine/Aspartame 4 gm Packet PO SCH (10:51)
[2018-07-22] MEDS ORDERED: hydrALAZINE 10 MG TAB PO PRN (18:18)
[2018-07-22] MEDS: Mirtazapine 15 MG TAB PO SCH (20:30)
[2018-07-22] MEDS: Donepezil HCl 10 MG TAB PO SCH (20:30)
[2018-07-22] MEDS: traZODone HCl 50 MG TAB PO SCH (20:31)
[2018-07-22] MEDS: Nicotine 21 MG PATCH TOP SCH (20:36)
[2018-07-23] MEDS ORDERED: predniSONE 20 MG TAB PO SCH (08:00)
[2018-07-23] MEDS: Mometasone/Formoterol 60 PUFF AER INH SCH (08:44)
[2018-07-23] MEDS: Saccharomyces boulardii 250 MG CAP PO SCH (08:45)
[2018-07-23] MEDS: Amlodipine 5 MG TAB PO SCH (08:45)
[2018-07-23] MEDS: Enoxaparin Sodium 40 MG/0.4 ML SYRINGE SC SCH (08:45)
[2018-07-23] MEDS: Escitalopram Oxalate 10 mg Tablet PO SCH (08:46)
[2018-07-23] MEDS: Nystatin Cream 15 GM TUBE TOP SCH (08:46)
[2018-07-23] MEDS: Cholestyramine/Aspartame 4 gm Packet PO SCH (10:42)
[2018-07-23 14:45] VITALS: BP 172/72; TEMP 98
== END 2018-07-23 15:00 | disposition swing bed (61) | DRG 190 ==
LOC: MADERS 11:58 → MADMS 15:38
PROVIDERS: ADMIT Family Medicine; ATTEND Family Medicine
DX: J44.1 Chronic obstructive pulmonary disease with (acute) exacerbation (principal); J96.21 Acute and chronic respiratory failure with hypoxia; J44.0 Chronic obstructive pulmonary disease with (acute) lower respiratory infection; J20.9 Acute bronchitis, unspecified; R07.89 Other chest pain; K52.9 Noninfective gastroenteritis and colitis, unspecified; I10 Essential (primary) hypertension; F32.9 Major depressive disorder, single episode, unspecified; F41.9 Anxiety disorder, unspecified; G47.00 Insomnia, unspecified; R62.7 Adult failure to thrive; R53.1 Weakness; I25.10 Atherosclerotic heart disease of native coronary artery without angina pectoris; F03.90 Unspecified dementia, unspecified severity, without behavioral disturbance, psychotic disturbance, mood disturbance, and anxiety; M19.90 Unspecified osteoarthritis, unspecified site; F17.210 Nicotine dependence, cigarettes, uncomplicated; Z86.73 Personal history of transient ischemic attack (TIA), and cerebral infarction without residual deficits; Z98.51 Tubal ligation status; Z90.49 Acquired absence of other specified parts of digestive tract; Z90.89 Acquired absence of other organs; Z88.1 Allergy status to other antibiotic agents; Z88.8 Allergy status to other drugs, medicaments and biological substances; Z68.21 Body mass index [BMI] 21.0-21.9, adult
CPT/HCPCS: 36415; 71045; 80048; 80053; 83605; 83880; 84484; 85025; 85379; 87804; 93005; 94640; 94760; J1650; J1956; J2930; J7512; J7620

== ENCOUNTER 2018-07-22 08:40 | Inpatient (IN) | payer MEDICARE ==
[2018-07-23] MEDS ORDERED: Diphenoxylate HCl/Atropine Tablet PO PRN (16:19)
[2018-07-23] MEDS ORDERED: Acetaminophen 325 MG TAB PO PRN (16:19)
[2018-07-23] MEDS ORDERED: hydrALAZINE 10 MG TAB PO PRN (16:19)
[2018-07-23] MEDS ORDERED: Promethazine DM 6.25-15mg/5ml 120 ML BOT PO PRN (16:19)
[2018-07-23] MEDS: Mometasone/Formoterol 60 PUFF AER INH SCH (20:00)
[2018-07-23] MEDS: Budesonide 0.5 MG/2 ML NEB NEB SCH (20:01)
[2018-07-23] MEDS: Donepezil HCl 10 MG TAB PO SCH (20:01)
[2018-07-23] MEDS: Mirtazapine 15 MG TAB PO SCH (20:01)
[2018-07-23] MEDS: ALPRAZolam 0.25 MG TAB PO PRN (20:02)
[2018-07-23] MEDS: Nicotine 21 MG PATCH TOP SCH (20:02)
[2018-07-23] MEDS: Nystatin Cream 15 GM TUBE TOP SCH (20:02)
[2018-07-23] MEDS: traZODone HCl 50 MG TAB PO PRN (20:02)
[2018-07-24] MEDS: Mometasone/Formoterol 60 PUFF AER INH SCH ×2 (08:00→19:59)
[2018-07-24] MEDS: Escitalopram Oxalate 10 mg Tablet PO SCH (08:01)
[2018-07-24] MEDS: Amlodipine 5 MG TAB PO SCH (08:01)
[2018-07-24] MEDS: Budesonide 0.5 MG/2 ML NEB NEB SCH ×2 (08:01→20:08)
[2018-07-24] MEDS: Saccharomyces boulardii 250 MG CAP PO SCH (08:01)
[2018-07-24] MEDS: predniSONE 20 MG TAB PO SCH (08:02)
[2018-07-24] MEDS: Enoxaparin Sodium 40 MG/0.4 ML SYRINGE SC SCH (08:02)
[2018-07-24] MEDS: Nystatin Cream 15 GM TUBE TOP SCH ×2 (08:02→20:00)
[2018-07-24] MEDS: Cholestyramine/Aspartame 4 gm Packet PO SCH (16:27)
[2018-07-24] MEDS: Mirtazapine 15 MG TAB PO SCH (20:01)
[2018-07-24] MEDS: Donepezil HCl 10 MG TAB PO SCH (20:02)
[2018-07-24] MEDS: Nicotine 21 MG PATCH TOP SCH (20:08)
[2018-07-25] MEDS: Mometasone/Formoterol 60 PUFF AER INH SCH ×2 (06:15→19:33)
[2018-07-25] MEDS: predniSONE 20 MG TAB PO SCH (08:46)
[2018-07-25] MEDS: Saccharomyces boulardii 250 MG CAP PO SCH (08:46)
[2018-07-25] MEDS: Budesonide 0.5 MG/2 ML NEB NEB SCH ×2 (08:46→20:17)
[2018-07-25] MEDS: Escitalopram Oxalate 10 mg Tablet PO SCH (08:46)
[2018-07-25] MEDS: Nystatin Cream 15 GM TUBE TOP SCH ×2 (08:47→20:22)
[2018-07-25] MEDS: Enoxaparin Sodium 40 MG/0.4 ML SYRINGE SC SCH (08:47)
[2018-07-25] MEDS: Amlodipine 5 MG TAB PO SCH (08:49)
[2018-07-25] MEDS: Cholestyramine/Aspartame 4 gm Packet PO SCH (09:48)
[2018-07-25] MEDS: Nicotine 21 MG PATCH TOP SCH (20:18)
[2018-07-25] MEDS: traZODone HCl 50 MG TAB PO PRN (20:18)
[2018-07-25] MEDS: ALPRAZolam 0.25 MG TAB PO PRN (20:18)
[2018-07-25] MEDS: Donepezil HCl 10 MG TAB PO SCH (20:18)
[2018-07-25] MEDS: Mirtazapine 15 MG TAB PO SCH (20:18)
[2018-07-26] MEDS: Mometasone/Formoterol 60 PUFF AER INH SCH ×2 (08:31→20:22)
[2018-07-26] MEDS: Budesonide 0.5 MG/2 ML NEB NEB SCH ×2 (08:32→20:23)
[2018-07-26] MEDS: Amlodipine 5 MG TAB PO SCH (08:32)
[2018-07-26] MEDS: Escitalopram Oxalate 10 mg Tablet PO SCH (08:32)
[2018-07-26] MEDS: Enoxaparin Sodium 40 MG/0.4 ML SYRINGE SC SCH (08:32)
[2018-07-26] MEDS: Saccharomyces boulardii 250 MG CAP PO SCH (08:32)
[2018-07-26] MEDS: Nystatin Cream 15 GM TUBE TOP SCH ×2 (08:33→20:27)
[2018-07-26] MEDS: predniSONE 20 MG TAB PO SCH (08:33)
[2018-07-26] MEDS: Cholestyramine/Aspartame 4 gm Packet PO SCH (10:40)
[2018-07-26] MEDS: Donepezil HCl 10 MG TAB PO SCH (20:23)
[2018-07-26] MEDS: Mirtazapine 15 MG TAB PO SCH (20:23)
[2018-07-26] MEDS: ALPRAZolam 0.25 MG TAB PO PRN (20:24)
[2018-07-26] MEDS: traZODone HCl 50 MG TAB PO PRN (20:24)
[2018-07-26] MEDS: Nicotine 21 MG PATCH TOP SCH (20:27)
[2018-07-27] MEDS: Mometasone/Formoterol 60 PUFF AER INH SCH ×2 (09:37→19:14)
[2018-07-27] MEDS: Enoxaparin Sodium 40 MG/0.4 ML SYRINGE SC SCH (09:38)
[2018-07-27] MEDS: Amlodipine 5 MG TAB PO SCH (09:38)
[2018-07-27] MEDS: Escitalopram Oxalate 10 mg Tablet PO SCH (09:38)
[2018-07-27] MEDS: Budesonide 0.5 MG/2 ML NEB NEB SCH ×2 (09:38→20:40)
[2018-07-27] MEDS: predniSONE 20 MG TAB PO SCH (09:39)
[2018-07-27] MEDS: Saccharomyces boulardii 250 MG CAP PO SCH (09:44)
[2018-07-27] MEDS: Nystatin Cream 15 GM TUBE TOP SCH ×2 (09:44→20:40)
[2018-07-27] MEDS: Cholestyramine/Aspartame 4 gm Packet PO SCH (10:48)
[2018-07-27] MEDS: Mirtazapine 15 MG TAB PO SCH (20:40)
[2018-07-27] MEDS: Nicotine 21 MG PATCH TOP SCH (20:40)
[2018-07-27] MEDS: Donepezil HCl 10 MG TAB PO SCH (20:40)
[2018-07-27] MEDS: traZODone HCl 50 MG TAB PO PRN (20:41)
[2018-07-27] MEDS: ALPRAZolam 0.25 MG TAB PO PRN (20:41)
[2018-07-28] MEDS: Mometasone/Formoterol 60 PUFF AER INH SCH ×3 (07:47→21:26)
[2018-07-28] MEDS: Amlodipine 5 MG TAB PO SCH (07:47)
[2018-07-28] MEDS: Escitalopram Oxalate 10 mg Tablet PO SCH (07:47)
[2018-07-28] MEDS: Enoxaparin Sodium 40 MG/0.4 ML SYRINGE SC SCH (07:47)
[2018-07-28] MEDS: predniSONE 20 MG TAB PO SCH (07:47)
[2018-07-28] MEDS: Saccharomyces boulardii 250 MG CAP PO SCH (07:47)
[2018-07-28] MEDS: Budesonide 0.5 MG/2 ML NEB NEB SCH ×2 (07:48→21:17)
[2018-07-28] MEDS: Nystatin Cream 15 GM TUBE TOP SCH ×2 (07:48→21:24)
[2018-07-28] MEDS: Cholestyramine/Aspartame 4 gm Packet PO SCH (11:57)
[2018-07-28] MEDS ORDERED: hydrALAZINE 10 MG TAB PO PRN (13:00)
[2018-07-28] MEDS: Mirtazapine 15 MG TAB PO SCH (21:18)
[2018-07-28] MEDS: Donepezil HCl 10 MG TAB PO SCH (21:19)
[2018-07-28] MEDS: Nicotine 21 MG PATCH TOP SCH (21:23)
[2018-07-29] MEDS: Amlodipine 5 MG TAB PO SCH (07:50)
[2018-07-29] MEDS: Escitalopram Oxalate 10 mg Tablet PO SCH (07:50)
[2018-07-29] MEDS: Enoxaparin Sodium 40 MG/0.4 ML SYRINGE SC SCH (07:51)
[2018-07-29] MEDS: Saccharomyces boulardii 250 MG CAP PO SCH (07:51)
[2018-07-29] MEDS: predniSONE 20 MG TAB PO SCH (07:51)
[2018-07-29] MEDS: Budesonide 0.5 MG/2 ML NEB NEB SCH ×2 (07:51→21:26)
[2018-07-29] MEDS: Nystatin Cream 15 GM TUBE TOP SCH ×2 (07:52→21:00)
[2018-07-29] MEDS: Mometasone/Formoterol 60 PUFF AER INH SCH ×2 (07:56→21:26)
[2018-07-29] MEDS: Cholestyramine/Aspartame 4 gm Packet PO SCH (10:54)
[2018-07-29 20:14] VITALS: BMI 21.9
[2018-07-29] MEDS: Donepezil HCl 10 MG TAB PO SCH (21:25)
[2018-07-29] MEDS: Mirtazapine 15 MG TAB PO SCH (21:25)
[2018-07-29] MEDS: Nicotine 21 MG PATCH TOP SCH (21:26)
[2018-07-29] MEDS: traZODone HCl 50 MG TAB PO PRN (23:37)
[2018-07-30 07:24] VITALS: BP 171/79; TEMP 98.6
[2018-07-30] MEDS ORDERED: predniSONE 5 MG TAB PO SCH (08:00)
[2018-07-30] MEDS: Mometasone/Formoterol 60 PUFF AER INH SCH (08:49)
[2018-07-30] MEDS: Saccharomyces boulardii 250 MG CAP PO SCH (08:49)
[2018-07-30] MEDS: Amlodipine 5 MG TAB PO SCH (08:49)
[2018-07-30] MEDS: Escitalopram Oxalate 10 mg Tablet PO SCH (08:49)
[2018-07-30] MEDS: Budesonide 0.5 MG/2 ML NEB NEB SCH (08:55)
[2018-07-30] MEDS: Nystatin Cream 15 GM TUBE TOP SCH (08:56)
[2018-07-30] MEDS: Cholestyramine/Aspartame 4 gm Packet PO SCH (11:12)
--- NOTE | 2018-07-30 22:22 | DIS ---
DATE OF ADMISSION: 07/23/2018 DATE OF DISCHARGE: 07/30/2018 DISCHARGE DIAGNOSES: 1. Deconditioning secondary to general weakness. 2. Unsteady gait. 3. Chronic obstructive pulmonary disease exacerbation, improved. 4. Acute bronchitis with chronic obstructive pulmonary disease, treated. 5. Hypoxia, O2 requiring, improved, now requiring p.r.n. O2 only. 6. Recurrence of elevated blood pressure with history of hypertension. 7. Abnormal weight loss, improved. SECONDARY DIAGNOSES: 1. Depression and anxiety. 2. Tobacco smoker, now in remission. 3. Chronic insomnia. 4. Chronic diarrhea. 5. Senile dementia without behavioral disturbances. DISPOSITION: Home. CONDITION ON DISCHARGE: Stable. MEDICATIONS: 1. Amlodipine 10 mg p.o. daily. 2. Cholestyramine (Questran Light) 4 g oral daily. 3. Donepezil 5 mg p.o. at bedtime. 4. Lexapro 10 mg p.o. daily. 5. DuoNeb 3 mL nebulizer every 4 hours p.r.n. 6. Prednisone 10 mg every morning for 2 days starting on 07/31/2018, then half a tab daily for 4 days, and stop. 7. Trazodone 50 mg at bedtime as needed. 8. Nicoderm 21 mg p.o. at bedtime. 9. Mirtazapine 7.5 mg p.o. at bedtime. 10. Dulera 1 puff inhalation twice a day. DIET: Regular. ACTIVITY: To use rolling walker at all times. DISCHARGE INSTRUCTIONS: 1. Follow up with Dr. Hu in 1 week or sooner with concern. 2. To discharge with home health to continue PT, OT at home. 3. DME ordered prior to discharge. HISTORY OF PRESENT ILLNESS AND HOSPITAL COURSE: Ms. Canada is an 83-year-old female with significant history of COPD; hypoxia, O2 requiring intermittently, mostly nocturnal; chronic tobacco use, depression, anxiety, insomnia, and hypertension. The patient was admitted on 07/19/2018 at [facility] secondary to COPD exacerbation. The patient was treated with Levaquin IV that subsequently switched to oral Levaquin for which she completed for 5-day course. She was also treated with IV steroid that subsequently switched to oral and tapered off and breathing treatments. The patient improved clinically and was subsequently been off from O2. She was tolerating room air several days prior to discharge. 02 has been stable at low to mid 90's without symptoms. During this admission,the patient was noted to be generally weak, deconditioned with unsteadiness of gait. She was transferred to [facility] on 07/23/2018 with the expectations that she will improve her strength and endurance and be able to walk better prior to going back to the home environment. During this time, the patient was also noted to have an improved appetite and had stopped smoking with nicotine patch. The patient had gained up to 127 pounds prior to discharge, which appears to be her baseline weight before she become ill. Her blood pressures were noted to be significantly elevated during this admissions that she was started back on her amlodipine. Her blood pressure prior to discharge is well controlled with amlodipine 10 mg p.o. daily. She was also started on trazodone 50 mg to 100 mg a tablet p.o. at bedtime p.r.n. and able to rest well. Her diarrhea improved with the use of Questran. The patient prefers to continue Questran at home as she reports home medication of colestipol did not even help at all. Prior to discharge, the patient was walking about 800 feet using a rolling walker. She is highly recommended to continue therapy at home for strengthening , gait training, and exercises. She is recommended to continue her nicotine patch and hopefully continue to be off tobacco use as she promised. VITAL SIGNS PRIOR TO DISCHARGE: Blood pressure 135/63, heart rate 70, respiration 18, O2 sats 99% room air, weight 127 pounds and 14.4 ounces. TIME SPENT: Time spent on this discharge, 35 minutes in examining the patient, coordinating care, and arranging care for the patient. Job ID: [id number] [facility]
== END 2018-07-30 14:43 | disposition home or self-care (01) | DRG 191 ==
LOC: MADMS 07-23 15:06
PROVIDERS: ADMIT Family Medicine; ATTEND Family Medicine
DX: J44.1 Chronic obstructive pulmonary disease with (acute) exacerbation (principal); F03.91 Unspecified dementia, unspecified severity, with behavioral disturbance; R53.81 Other malaise; R53.1 Weakness; J44.0 Chronic obstructive pulmonary disease with (acute) lower respiratory infection; J20.9 Acute bronchitis, unspecified; R09.02 Hypoxemia; I10 Essential (primary) hypertension; R63.4 Abnormal weight loss; F41.9 Anxiety disorder, unspecified; F32.9 Major depressive disorder, single episode, unspecified; G47.00 Insomnia, unspecified; K52.9 Noninfective gastroenteritis and colitis, unspecified; Z87.891 Personal history of nicotine dependence; Z68.22 Body mass index [BMI] 22.0-22.9, adult
CPT/HCPCS: J1650; J7512; J7626

== ENCOUNTER 2018-12-05 16:55 | Emergency (ER) | payer MEDICARE ==
[2018-12-05] MEDS ORDERED: Meclizine HCl 25 MG TAB ONE (18:02)
[2018-12-05 18:36] LABS: Bilirubin Negative (Negative); Blood, Urine Trace (Negative); Clarity Slightly Cloudy (Clear); Glucose, Urine (Dipstick) Negative (Negative); Leukocyte Moderate (Negative); Nitrite Negative (Negative); Protein, Urine (Dipstick) Negative (Neg-Trace); Urobilinogen 0.2 mg/dL (Less than 2)
[2018-12-05 18:37] LABS: Band 1 % (5-11); Hemoglobin 13.8 g/dL (12.0-16.0); Lymphocytes 26 % (21-51); MDiff Complete? YES; Mean Corpuscular HGB CONC 32.8 g/dL (32.0-36.0); Mean Corpuscular Hemoglobin 28.2 pg (27.0-31.0); Mean Corpuscular Volume 86.1 fL (78.0-98.0); Mean Platelet Volume 7.2 fL (7.4-10.4); Monocytes 8 % (0-10); Neutrophil 65 % (42-75); Platelet Count 150 thou/uL (130-400); Platelet Morphology Comment Appears Adequate; RBC Distribution Width 12.4 % (11.5-14.5); Red Blood Cell (RBC) Count 4.88 mill/uL (4.20-5.40); White Blood Cell (WBC) Count 7.1 thou/uL (4.8-10.8)
[2018-12-05 18:47] LABS: ALT (SGPT) 7 U/L (8-55); AST (SGOT) 15 U/L (5-34); Albumin 4.1 g/dL (3.4-4.8); Alkaline Phosphatase 99 U/L (40-150); Anion Gap 17 mmol/L (10-20); BUN (Urea Nitrogen) 11 mg/dL (9.8-20.1); Bilirubin, Total 0.3 mg/dL (0.2-1.2); CK (CPK) 30 U/L (29-168); Calc. Creatinine Clearance 0 mL/min (70-130); Calcium 9.6 mg/dL (7.8-10.44); Carbon Dioxide 25 mmol/L (23-31); Chloride 104 mmol/L (98-107); Estimated GFR-MDRD 56; Globulin 3.3 g/dL (2.4-3.5); Glucose 93 mg/dL (83-110); Lipase 75 U/L (8-78); Potassium 3.6 mmol/L (3.5-5.1); Protein, Total 7.4 g/dL (6.0-8.3); Sodium 142 mmol/L (136-145)
--- NOTE | 2018-12-05 18:48 | RAD ---
PORTABLE CHEST: Date: 12-05-18 Provided Clinical History: Weakness, dizziness. FINDINGS: Comparison 07-19-18. Cardiac and mediastinal silhouette is within normal limits. Vascular calcification involves the aorti c arch. No focal consolidation, pleural fluid, or pneumothorax apparent. IMPRESSION: No evidence for an acute cardiopulmonary process. POS: [facility]
[2018-12-05 18:57] LABS: Bacteria/HPF 1+ HPF (None Seen); RBC/HPF 0-3 HPF (0-3); WBC/HPF 21-50 HPF (0-3)
[2018-12-05 19:01] LABS: CKMB 1.1 ng/mL (0-6.6)
--- NOTE | 2018-12-05 19:07 | CT ---
CT HEAD WITHOUT CONTRAST: Date: 12-05-18 Comparison: None. History: Weakness, dizziness. Technique: Axial CT imaging at 5 mm intervals from the vertex to the skull base without contrast. FINDINGS: The imaged paranasal sinuses/mastoid air cells are well aerated. There is no displaced calvarial frac ture. There is atherosclerotic calcifications of bilateral cavernous carotid arteries. There is diffu se cerebral volume loss with extensive hypodensity of the periventricular deep and subcortical white matter, evidence of significant small vessel disease. No intracranial hemorrhage, midline shift, or m ass effect. IMPRESSION: Chronic findings as described above. No intracranial hemorrhage. POS: OFF
[2018-12-05] MEDS ORDERED: Aspirin Chewable 81 MG TAB ONE (19:13)
== END 2018-12-05 20:04 | disposition short-term general hospital (02) ==
LOC: MADERS 16:55
DX: R42 Dizziness and giddiness (principal); N39.0 Urinary tract infection, site not specified; R79.89 Other specified abnormal findings of blood chemistry; I11.0 Hypertensive heart disease with heart failure; I50.9 Heart failure, unspecified; J44.9 Chronic obstructive pulmonary disease, unspecified; I25.2 Old myocardial infarction; F03.90 Unspecified dementia, unspecified severity, without behavioral disturbance, psychotic disturbance, mood disturbance, and anxiety; F41.9 Anxiety disorder, unspecified; F32.9 Major depressive disorder, single episode, unspecified; F17.290 Nicotine dependence, other tobacco product, uncomplicated; Z79.899 Other long term (current) drug therapy; Z79.51 Long term (current) use of inhaled steroids
CPT/HCPCS: 70450; 71045; 80053; 81003; 81015; 82550; 82553; 83605; 83690; 84443; 84484; 85025; 93005; 96365; J1956; J8597

== ENCOUNTER 2018-12-07 12:40 | Inpatient (IN) | payer MEDICARE ==
[2018-12-07] MEDS: Mometasone/Formoterol 60 PUFF AER INH SCH (19:52)
[2018-12-07] MEDS: Atorvastatin Calcium 40 MG TAB PO SCH (20:18)
[2018-12-07] MEDS: busPIRone HCl 5 MG TAB PO SCH (20:18)
[2018-12-07] MEDS: Mirtazapine 15 MG TAB PO SCH (20:19)
--- NOTE | 2018-12-08 01:06 | HP ---
PRIMARY CARE PHYSICIAN: Johana Hu MD. REASON FOR ADMISSION: Skilled rehab in [facility] after recent hospitalization. HISTORY OF THE PRESENT ILLNESS AND HOSPITAL COURSE: Ms. Esqueda is an 83-year- old female with significant history of COPD requiring intermittent oxygen supplement, hypertension, CAD, dementia. The patient has been having [id number] gradually worsening vertigo. The patient has reported it has become so severe that she has not been able to function properly at home and some difficulty with walking. No clear triggers nor elevating factors. The patient was subsequently admitted to [facility] on 12/05/2018 for further evaluation. Stroke was ruled out per protocol. At that time, the patient noticeably had mild elevated troponin thus she was admitted to telemetry for further cardiac monitoring. Brain CT showed atrophy and chronic white matter ischemic changes, otherwise no evidence for acute infarct. There was a left maxillary sinus mucosal disease. Carotid Doppler study showed 50-69 percent narrowing of the right internal carotid artery near its origin by NASCET criteria. The peak systolic velocities of the left internal carotid artery are at junction of less than 50% to the range of 50% to 69% by NASCET criteria. The diastolic velocities and ratios would suggest less than 50% narrowing. The echocardiogram showed EF of 55% to 60% suggestive of diastolic dysfunction. On further evaluation, the patient was also diagnosed with UTI and was started on Levaquin. After further monitoring, the patient was noted to have no further troponin elevation that is suggestive of acute coronary disease. On further eval, pateint to have a basleine elevated troponin. No further cardiac recommendations was done. Her potassium that was initially mildly low had improved. Vertigo was reported to resolve. The patient remains generally weak recommending further rehab in [facility], thus transferred on 12/07/2018. When evaluated, the patient was resting comfortably in bed. No family members were available at the time of examination. The patient is able to contribute to the history herself. She reports that she still feels dizzy, but has improved a lot. She reports no other issues at this time. The patient also reports do not resuscitate. I called her primary care/family it sales representative, Betsy Weber on the phone and confirmed the above code status.Miss Weber reported that the patient has been telling her lately about this as well, suggesting if we can ask again in the morning and check if her decision will change. Family also reports persistent decreased appetite and gradual weight loss noted. She is currently 120 pounds and granddaughter reports that she was previously 128 with her most recent hospitalization few months ago. PAST MEDICAL HISTORY: 1. COPD requiring intermittent O2 use. 2. Chronic tobacco use. 3. Hypertension. 4. Depression. 5. Anxiety. 6. Anorexia. 7. Insomnia. 8. Coronary artery disease. 9. Mild dementia without behavioral disturbances. PAST SURGICAL HISTORY: Tonsillectomy, tubal ligation, and cholecystectomy. SOCIAL HISTORY: Lives at home with her granddaughter, Lyric Weber is the primary county bailiff. She continues to smoke. The patient smokes 1 pack a day. Denies illicit drug use or alcohol use. FAMILY HISTORY: Noncontributory. ALLERGIES: TO CEPHALEXIN, CODEINE, DIAZEPAM, DILANTIN, HYDROCODONE, IODINE, KEFLEX, LATEX, TICLID, TICLOPIDINE, TRAMADOL, VALIUM, ORAL VICODIN, VIOXX AND ADHESIVE TAPE. CURRENT MEDICATIONS: 1. Amlodipine 10 mg p.o. daily. 2. Aspirin 81 mg p.o. daily. 3. Atorvastatin 400 mg p.o. at bedtime. 4. BuSpar 10 mg p.o. b.i.d. 5. DuoNeb 3 mL neb q.4 hours p.r.n. 6. Levaquin 250 mg p.o. q.a.m. 7. Mirtazapine 7.5 mg p.o. at bedtime. 8. Mometasone/formoterol two puffs inhaled b.i.d. 9. Trazodone 50 mg p.o. daily. REVIEW OF SYSTEMS: GENERAL: Denies fever, chills. Reports fatigue, general weakness, decreased appetite and weight loss. HEENT: No acute visual changes or hearing changes. No cold symptoms. RESPIRATORY: No active shortness of breath, wheezing, sputum production, or cough. CARDIAC: No chest pain, dyspnea on exertion, paroxysmal nocturnal dyspnea or leg swelling. GI: No nausea, vomiting, abdominal pain, diarrhea, or constipation. GENITOURINARY: No dysuria or hematuria. Reports frequency and hesitation. No gross hematuria, incontinence. MUSCULOSKELETAL: Denies joint pain, swelling, myalgia. NEUROLOGIC: No focal numbness, no focal weakness, loss of consciousness, tics or tremors or seizure activities. PSYCHIATRIC: Reports depressive symptoms and chronic insomnia, anxiety. SKIN: No rashes. No lesions. No pruritus. PHYSICAL EXAMINATION: VITAL SIGNS: Blood pressure 129/59, temp 97.9, pulse 86, respiration 18, O2 saturations 96% at 2.5 L per nasal cannula, weight 122 pounds and 4 ounces, height 5 feet 4 inches. GENERAL: The patient is awake, alert, and oriented x3. Not in distress. Generally weak looking, frail, elderly. HEENT: Normocephalic, atraumatic. PERRL. Intact EOM. Anicteric sclerae. Oral mucosa is moist. NECK: Supple. No LAD. No JVD. No bruit. CHEST: Normal excursion. Clear to auscultation bilaterally. CARDIAC: RRR. Normal S1, S2. No murmurs. ABDOMEN: Flat, soft. Normoactive bowel sounds. Nondistended, nontender. No rebound or guarding. Negative CVA tenderness bilaterally. EXTREMITIES: No edema. No cyanosis. SKIN: No rashes. No lesions. No petechiae. No purpura. Good skin turgor. PSYCH: Appears calm with appropriate demeanor and affect. NEUROLOGIC: Nonfocal. DTRs 2+. Gait unsteady. LABORATORY DATA: Most recent blood work, WBC 5.5, hemoglobin 12.6, hematocrit 36.4, platelets 142 on 12/07/2018. Sodium 140, potassium 3.4 on 12/06/2018, now 4.2 on 12/07/2018. BUN 15, creatinine 0.89, glucose 106, calcium 9.9. Troponin 0.037 on 12/06/2018. Triglycerides 160, LDL 101. Urine on 12/05/2018, leukocytes moderate, wbcs 21-50, nitrite negative. ASSESSMENT: 1. Deconditioning/general weakness. 2. Urinary tract infection. 3. Vertigo, nonspecific. 4. Hypertension. 5. Depression/anxiety. 6. Anorexia with weight loss. 7. Dyslipidemia. 8. Chronic insomnia. 9. Unsteady gait. 10. The patient is admitted to [facility] for rehab. We will refer to PT and OT. 11. We will continue current medications as above. 12. May titrate Remeron, if the patient continues to have low/poor oral intake. 13.. Diet: Regular. 14. Activity to be determined by therapy. 315. Further recommendations depending on the hospital course. ESTIMATED LENGTH OF STAY: 1 to 2 weeks. CODE STATUS: 1. The patient reports DNR. This was discussed with family member as above, who concurs with the patient's wishes. DISPOSITION: Home with family. Primary resident care supervisor is Betsy Weber, grand daughter. Job ID: [id number] MTDD
[2018-12-08] MEDS: Acetaminophen 325 MG TAB PO PRN (02:20)
[2018-12-08] MEDS: Mometasone/Formoterol 60 PUFF AER INH SCH ×2 (08:07→19:59)
[2018-12-08] MEDS: Aspirin 81 mg Enteric Coated Tablet PO SCH (08:08)
[2018-12-08] MEDS: busPIRone HCl 5 MG TAB PO SCH ×2 (08:08→20:00)
[2018-12-08] MEDS: Amlodipine 5 MG TAB PO SCH (08:08)
[2018-12-08] MEDS: Atorvastatin Calcium 40 MG TAB PO SCH (20:00)
[2018-12-08] MEDS: Mirtazapine 15 MG TAB PO SCH (20:00)
[2018-12-08] MEDS: traZODone HCl 50 MG TAB PO SCH (20:00)
[2018-12-09] MEDS: Mometasone/Formoterol 60 PUFF AER INH SCH ×2 (07:49→19:57)
[2018-12-09] MEDS: Amlodipine 5 MG TAB PO SCH (09:07)
[2018-12-09] MEDS: busPIRone HCl 5 MG TAB PO SCH ×2 (09:07→20:03)
[2018-12-09] MEDS: Aspirin 81 mg Enteric Coated Tablet PO SCH (09:08)
[2018-12-09] MEDS: Mirtazapine 15 MG TAB PO SCH (19:59)
[2018-12-09] MEDS: traZODone HCl 50 MG TAB PO SCH (19:59)
[2018-12-09] MEDS: Atorvastatin Calcium 40 MG TAB PO SCH (20:03)
[2018-12-10] MEDS: Mometasone/Formoterol 60 PUFF AER INH SCH ×2 (08:24→19:44)
[2018-12-10] MEDS: Aspirin 81 mg Enteric Coated Tablet PO SCH (08:25)
[2018-12-10] MEDS: Amlodipine 5 MG TAB PO SCH (08:25)
[2018-12-10] MEDS: busPIRone HCl 5 MG TAB PO SCH ×2 (08:25→20:07)
[2018-12-10] MEDS: traZODone HCl 50 MG TAB PO SCH (20:07)
[2018-12-10] MEDS: Atorvastatin Calcium 40 MG TAB PO SCH (20:07)
[2018-12-10] MEDS: Mirtazapine 15 MG TAB PO SCH (20:07)
[2018-12-11] MEDS: Mometasone/Formoterol 60 PUFF AER INH SCH ×2 (07:20→19:19)
[2018-12-11] MEDS: Amlodipine 5 MG TAB PO SCH (08:12)
[2018-12-11] MEDS: busPIRone HCl 5 MG TAB PO SCH ×2 (08:13→20:45)
[2018-12-11] MEDS: Aspirin 81 mg Enteric Coated Tablet PO SCH (08:13)
[2018-12-11] MEDS: Mirtazapine 15 MG TAB PO SCH (20:45)
[2018-12-11] MEDS: Atorvastatin Calcium 40 MG TAB PO SCH (20:45)
[2018-12-11] MEDS: traZODone HCl 50 MG TAB PO SCH (20:45)
[2018-12-12] MEDS: Mometasone/Formoterol 60 PUFF AER INH SCH ×2 (07:15→19:20)
[2018-12-12] MEDS: Amlodipine 5 MG TAB PO SCH (08:10)
[2018-12-12] MEDS: Aspirin 81 mg Enteric Coated Tablet PO SCH (08:10)
[2018-12-12] MEDS: busPIRone HCl 5 MG TAB PO SCH ×2 (08:10→20:24)
[2018-12-12] MEDS: Atorvastatin Calcium 40 MG TAB PO SCH (20:23)
[2018-12-12] MEDS: traZODone HCl 50 MG TAB PO SCH (20:24)
[2018-12-12] MEDS: Mirtazapine 15 MG TAB PO SCH (20:24)
[2018-12-13] MEDS: Acetaminophen 325 MG TAB PO PRN ×2 (06:55→17:49)
[2018-12-13] MEDS: Mometasone/Formoterol 60 PUFF AER INH SCH ×2 (06:57→19:50)
[2018-12-13] MEDS: Amlodipine 5 MG TAB PO SCH (08:02)
[2018-12-13] MEDS: busPIRone HCl 5 MG TAB PO SCH ×2 (08:02→20:31)
[2018-12-13] MEDS: Aspirin 81 mg Enteric Coated Tablet PO SCH (08:02)
[2018-12-13 08:18] LABS: #Basophils 0.1 thou/uL (0.0-0.2); #Lymphocytes 1.4 thou/uL (1.20-3.40); #Neutrophils 7.6 thou/uL (1.40-6.50); %Basophils 0.7 % (0.0-1.0); %Eosinophils 0.5 % (0.0-10.0); %Lymphocytes 13.7 % (21.0-51.0); %Monocytes 9.8 % (0.0-10.0); %Neutrophils 75.3 % (42.0-75.0); Hemoglobin 11.4 g/dL (12.0-16.0); Mean Corpuscular HGB CONC 32.3 g/dL (32.0-36.0); Mean Corpuscular Hemoglobin 28.2 pg (27.0-31.0); Mean Corpuscular Volume 87.2 fL (78.0-98.0); Platelet Count 133 thou/uL (130-400); RBC Distribution Width 12.5 % (11.5-14.5); Red Blood Cell (RBC) Count 4.04 mill/uL (4.20-5.40); White Blood Cell (WBC) Count 10.1 thou/uL (4.8-10.8)
[2018-12-13 08:28] LABS: Anion Gap 14 mmol/L (10-20); BUN (Urea Nitrogen) 23 mg/dL (9.8-20.1); Calc. Creatinine Clearance 45 mL/min (70-130); Calcium 9.3 mg/dL (7.8-10.44); Carbon Dioxide 22 mmol/L (23-31); Chloride 108 mmol/L (98-107); Estimated GFR-MDRD 64; Glucose 102 mg/dL (83-110); Potassium 4.3 mmol/L (3.5-5.1); Sodium 140 mmol/L (136-145)
[2018-12-13] MEDS: Piperacillin/Tazobactam 3.375 GM in Sodium Chloride 0.9% 100 ML IVPB SCH ×2 (13:37→17:41)
[2018-12-13] MEDS: Mirtazapine 15 MG TAB PO SCH (20:32)
[2018-12-13] MEDS: traZODone HCl 50 MG TAB PO SCH (20:32)
[2018-12-13] MEDS: Atorvastatin Calcium 40 MG TAB PO SCH (20:33)
[2018-12-14] MEDS: Piperacillin/Tazobactam 3.375 GM in Sodium Chloride 0.9% 100 ML IVPB SCH ×5 (00:11→23:38)
[2018-12-14] MEDS: Acetaminophen 325 MG TAB PO PRN (04:34)
[2018-12-14] MEDS: Mometasone/Formoterol 60 PUFF AER INH SCH ×2 (07:19→19:43)
--- NOTE | 2018-12-14 07:48 | RAD ---
Exam: Chest 2 views HISTORY:Fever Comparison: 04/23/2018 FINDINGS: Lungs: Left basilar opacity. Mild, generalized interstitial prominence. Cardiac silhouette:Upper limits of normal in size Pulmonary vessels: Normal Pleural Spaces: Clear Pneumothorax: None Osseous abnormalities: None of acuity. IMPRESSION: Left basilar opacity compatible with pneumonia Recommend follow up to resolution.
[2018-12-14] MEDS: Aspirin 81 mg Enteric Coated Tablet PO SCH (09:13)
[2018-12-14] MEDS: Amlodipine 5 MG TAB PO SCH (09:13)
[2018-12-14] MEDS: busPIRone HCl 5 MG TAB PO SCH ×2 (09:13→20:59)
[2018-12-14] MEDS: Atorvastatin Calcium 40 MG TAB PO SCH (20:59)
[2018-12-14] MEDS: Mirtazapine 15 MG TAB PO SCH (20:59)
[2018-12-14] MEDS: traZODone HCl 50 MG TAB PO SCH (20:59)
[2018-12-15] MEDS: Piperacillin/Tazobactam 3.375 GM in Sodium Chloride 0.9% 100 ML IVPB SCH ×4 (05:53→23:23)
[2018-12-15] MEDS: Mometasone/Formoterol 60 PUFF AER INH SCH ×2 (07:15→19:02)
[2018-12-15] MEDS: Amlodipine 5 MG TAB PO SCH (08:44)
[2018-12-15] MEDS: busPIRone HCl 5 MG TAB PO SCH ×2 (08:44→20:50)
[2018-12-15] MEDS: Aspirin 81 mg Enteric Coated Tablet PO SCH (08:44)
[2018-12-15] MEDS: Nicotine 21 MG PATCH TOP SCH (12:34)
[2018-12-15] MEDS: Atorvastatin Calcium 40 MG TAB PO SCH (20:50)
[2018-12-15] MEDS: traZODone HCl 50 MG TAB PO SCH (20:50)
[2018-12-15] MEDS: Mirtazapine 15 MG TAB PO SCH (20:50)
[2018-12-16] MEDS: Piperacillin/Tazobactam 3.375 GM in Sodium Chloride 0.9% 100 ML IVPB SCH ×4 (05:52→23:05)
[2018-12-16] MEDS: Mometasone/Formoterol 60 PUFF AER INH SCH ×2 (07:30→19:23)
[2018-12-16] MEDS: busPIRone HCl 5 MG TAB PO SCH ×2 (08:44→20:16)
[2018-12-16] MEDS: Amlodipine 5 MG TAB PO SCH (08:44)
[2018-12-16] MEDS: Aspirin 81 mg Enteric Coated Tablet PO SCH (08:45)
[2018-12-16] MEDS: Nicotine 21 MG PATCH TOP SCH (12:34)
[2018-12-16] MEDS: Mirtazapine 15 MG TAB PO SCH (20:17)
[2018-12-16] MEDS: Atorvastatin Calcium 40 MG TAB PO SCH (20:17)
[2018-12-16] MEDS: traZODone HCl 50 MG TAB PO SCH (20:17)
[2018-12-17] MEDS: Piperacillin/Tazobactam 3.375 GM in Sodium Chloride 0.9% 100 ML IVPB SCH ×5 (05:04→22:58)
[2018-12-17] MEDS: Mometasone/Formoterol 60 PUFF AER INH SCH ×3 (06:20→18:55)
[2018-12-17] MEDS: busPIRone HCl 5 MG TAB PO SCH ×2 (08:39→20:40)
[2018-12-17] MEDS: Aspirin 81 mg Enteric Coated Tablet PO SCH (08:40)
[2018-12-17] MEDS: Amlodipine 5 MG TAB PO SCH (08:40)
--- NOTE | 2018-12-17 12:14 | RAD ---
2 VIEWS CHEST: Date: 12/17/18 COMPARISON: 12/13/18. HISTORY: Pneumonia. FINDINGS: 2 views of the chest show normal sized cardiomediastinal silhouette. Air space opacity is seen in the left lower lobe consistent with pneumonia. No pleural effusion is seen. IMPRESSION: Left lower lobe pneumonia. POS: CET
[2018-12-17] MEDS: Nicotine 21 MG PATCH TOP SCH (13:49)
[2018-12-17] MEDS: traZODone HCl 50 MG TAB PO SCH (20:40)
[2018-12-17] MEDS: Atorvastatin Calcium 40 MG TAB PO SCH (20:40)
[2018-12-17] MEDS: Mirtazapine 15 MG TAB PO SCH (20:40)
[2018-12-18] MEDS: Piperacillin/Tazobactam 3.375 GM in Sodium Chloride 0.9% 100 ML IVPB SCH ×3 (05:00→18:00)
[2018-12-18] MEDS: Mometasone/Formoterol 60 PUFF AER INH SCH ×2 (08:14→19:45)
[2018-12-18] MEDS: Aspirin 81 mg Enteric Coated Tablet PO SCH (08:15)
[2018-12-18] MEDS: busPIRone HCl 5 MG TAB PO SCH ×2 (08:15→20:18)
[2018-12-18] MEDS: Amlodipine 5 MG TAB PO SCH (08:16)
[2018-12-18] MEDS: Nicotine 21 MG PATCH TOP SCH (12:56)
[2018-12-18] MEDS: traZODone HCl 50 MG TAB PO SCH (20:18)
[2018-12-18] MEDS: Atorvastatin Calcium 40 MG TAB PO SCH (20:18)
[2018-12-18] MEDS: Mirtazapine 15 MG TAB PO SCH (20:18)
[2018-12-19] MEDS: Piperacillin/Tazobactam 3.375 GM in Sodium Chloride 0.9% 100 ML IVPB SCH ×5 (00:03→23:38)
[2018-12-19] MEDS: Mometasone/Formoterol 60 PUFF AER INH SCH ×3 (08:20→21:04)
[2018-12-19] MEDS: Amlodipine 5 MG TAB PO SCH (08:21)
[2018-12-19] MEDS: busPIRone HCl 5 MG TAB PO SCH ×2 (08:21→21:06)
[2018-12-19] MEDS: Aspirin 81 mg Enteric Coated Tablet PO SCH (08:21)
[2018-12-19] MEDS: Nicotine 21 MG PATCH TOP SCH (13:42)
[2018-12-19] MEDS: Mirtazapine 15 MG TAB PO SCH (21:06)
[2018-12-19] MEDS: Atorvastatin Calcium 40 MG TAB PO SCH (21:06)
[2018-12-19] MEDS: traZODone HCl 50 MG TAB PO SCH (21:07)
[2018-12-20] MEDS: Piperacillin/Tazobactam 3.375 GM in Sodium Chloride 0.9% 100 ML IVPB SCH (05:24)
[2018-12-20] MEDS: Amlodipine 5 MG TAB PO SCH (08:13)
[2018-12-20] MEDS: Mometasone/Formoterol 60 PUFF AER INH SCH ×2 (08:14→21:12)
[2018-12-20] MEDS: busPIRone HCl 5 MG TAB PO SCH ×2 (08:14→20:50)
[2018-12-20] MEDS: Aspirin 81 mg Enteric Coated Tablet PO SCH (08:14)
[2018-12-20] MEDS: Nicotine 21 MG PATCH TOP SCH (13:46)
[2018-12-20] MEDS: Atorvastatin Calcium 40 MG TAB PO SCH (20:50)
[2018-12-20] MEDS: Mirtazapine 15 MG TAB PO SCH (20:50)
[2018-12-20] MEDS: traZODone HCl 50 MG TAB PO SCH (20:50)
[2018-12-21] MEDS: Mometasone/Formoterol 60 PUFF AER INH SCH ×2 (08:26→20:26)
[2018-12-21] MEDS: busPIRone HCl 5 MG TAB PO SCH ×2 (08:26→20:26)
[2018-12-21] MEDS: Aspirin 81 mg Enteric Coated Tablet PO SCH (08:26)
[2018-12-21] MEDS: Amlodipine 5 MG TAB PO SCH (08:26)
[2018-12-21] MEDS: Nicotine 21 MG PATCH TOP SCH (12:47)
[2018-12-21] MEDS: Mirtazapine 15 MG TAB PO SCH (20:26)
[2018-12-21] MEDS: traZODone HCl 50 MG TAB PO SCH (20:26)
[2018-12-21] MEDS: Atorvastatin Calcium 40 MG TAB PO SCH (20:26)
[2018-12-22] MEDS: Aspirin 81 mg Enteric Coated Tablet PO SCH (08:20)
[2018-12-22] MEDS: busPIRone HCl 5 MG TAB PO SCH ×2 (08:20→20:46)
[2018-12-22] MEDS: Mometasone/Formoterol 60 PUFF AER INH SCH ×2 (08:20→20:46)
[2018-12-22] MEDS: Amlodipine 5 MG TAB PO SCH (08:20)
[2018-12-22] MEDS: Nicotine 21 MG PATCH TOP SCH (12:43)
[2018-12-22] MEDS: Mirtazapine 15 MG TAB PO SCH (20:46)
[2018-12-22] MEDS: Atorvastatin Calcium 40 MG TAB PO SCH (20:46)
[2018-12-22] MEDS: traZODone HCl 50 MG TAB PO SCH (20:46)
[2018-12-23] MEDS: Aspirin 81 mg Enteric Coated Tablet PO SCH (09:25)
[2018-12-23] MEDS: Amlodipine 5 MG TAB PO SCH (09:25)
[2018-12-23] MEDS: Mometasone/Formoterol 60 PUFF AER INH SCH ×2 (09:25→20:01)
[2018-12-23] MEDS: busPIRone HCl 5 MG TAB PO SCH ×2 (09:25→20:00)
[2018-12-23] MEDS: Nicotine 21 MG PATCH TOP SCH (13:31)
[2018-12-23 13:44] VITALS: BMI 22.4
[2018-12-23] MEDS ORDERED: FLU VACC TS2019-20(65YR UP)/PF 180 MCG/0.5 ML SYRINGE IM ONE (18:00)
[2018-12-23] MEDS: Mirtazapine 15 MG TAB PO SCH (20:00)
[2018-12-23] MEDS: traZODone HCl 50 MG TAB PO SCH (20:01)
[2018-12-23] MEDS: Atorvastatin Calcium 40 MG TAB PO SCH (20:01)
[2018-12-24] MEDS: Mometasone/Formoterol 60 PUFF AER INH SCH (09:18)
[2018-12-24] MEDS: Amlodipine 5 MG TAB PO SCH (09:19)
[2018-12-24] MEDS: Aspirin 81 mg Enteric Coated Tablet PO SCH (09:19)
[2018-12-24] MEDS: busPIRone HCl 5 MG TAB PO SCH (09:19)
[2018-12-24 10:13] VITALS: BP 128/61; TEMP 98.3
[2018-12-24] MEDS: Nicotine 21 MG PATCH TOP SCH (14:28)
--- NOTE | 2018-12-25 12:18 | DIS ---
DATE OF ADMISSION: 12/07/2018 DATE OF DISCHARGE: 12/24/2018 PRIMARY CARE PHYSICIAN: Johana Hu MD. REASON FOR ADMISSION: Skilled rehab in [facility] after recent hospitalization. DIAGNOSES: 1. Pneumonia, left lower lobe, treated. 2. Urinary tract infection, resolved. 3. Vertigo, nonspecific, resolved. 4. Anorexia with weight loss, improved weight. 5. Chronic obstructive pulmonary disease. 6. Chronic nocturnal hypoxia, oxygen requiring. 7. Deconditioning secondary to general weakness, improving. 8. Unsteady gait. 9. At risk for fall. 10. History of pulmonary nodule followed by immigration lawyer. SECONDARY DIAGNOSES: Hypertension, depression and anxiety, dyslipidemia, chronic insomnia, chronic tobacco abuse. DISPOSITION: Home with niece, Betsy, as a primary caregiver. CONDITION ON DISCHARGE: Stable. DISCHARGE INSTRUCTIONS: 1. Diet: Regular. 2. Activity to use rolling walker at all times when with ambulation and transfers. 3. Fall precautions. 4. Follow up with Dr. Hu in 1 week. 5. To get a chest x-ray as outpatient prior to PCP's appointment. 6. To use O2 at bedtime and p.r.n. 7. Refer to [facility] for PT, OT, skilled rehab. MEDICATIONS: 1. Amlodipine 10 mg p.o. daily. 2. Aspirin 81 mg p.o. daily. 3. Atorvastatin 40 mg p.o. at bedtime. 4. Symbicort 160/4.5 two inhaled b.i.d. 5. Buspirone 10 mg p.o. b.i.d. 6. DuoNeb 3 mL q.4 hours p.r.n. 7. Mirtazapine 7.5 mg p.o. at bedtime. 8. Nicotine patch 21 mg p.o. daily. 9. Trazodone 50 mg p.o. at bedtime p.r.n. HISTORY OF PRESENT ILLNESS AND HOSPITAL COURSE: Ms. Canada is a very pleasant 83-year-old female, who is very known to me. The patient has significant history of chronic tobacco use, COPD; hypoxia, O2 requiring mostly nocturnal and p.r.n.; hypertension, depression and anxiety, chronic insomnia, and dyslipidemia. The patient was recently admitted to [facility] on 12/05/2018 with complaint of dizziness. At that time, the patient noticeably had mild elevated troponin, then she was admitted to telemetry for further cardiac monitoring. Brain CT showed atrophy and chronic white matter ischemic changes, otherwise no evidence of acute infarct. The left maxillary sinus mucosal disease. Carotid Doppler study showed 50% to 69% narrowing of the right internal carotid artery near its origin by NASCET criteria. The peak systolic velocities of left internal carotid artery are at the junction of less than 50% to the range of 50% to 69%. The diastolic velocities ratio would suggest less than 50% narrowing. The echocardiogram showed EF of 55% to 60% suggestive of diastolic dysfunction. The patient was also diagnosed with UTI at that time and was started on Levaquin. Of note, there was no chest x-ray ordered at that time of admission. After further monitoring, the patient was noted to have no further troponin elevation that was suggestive of acute coronary artery disease, thus no further cardiac recommendation was done. It was deemed that her elevated troponin was at her baseline. Significantly, her vertigo reported to resolve. However, the patient remained generally weak recommending further rehab in [facility] that she was transferred on. So, she was transferred to [facility] on 12/07/2018. The patient did well in rehab. She gradually improved in her overall functional status/mobility and strength and endurance. She was walking 750 feet using her rolling walker with supervision prior to her discharge. She remained to have decreased endurance and strength intermittent shortness of breath and fatigue requiring a standing rest break for 30 seconds in between. Otherwise, the patient has been independently transferring and doing her ADLs without significant assistance. Her rehab course was complicated with acute onset of shortness of breath more than her baseline. Her chest x-ray showed left lower lobe pneumonia. At that time, the patient was still in her low dose Levaquin for UTI treatment. The patient then received Zosyn IV that she completed for 7-day course. Initially, the patient has mild temperature of 100. The patient became febrile free 24 hours after the IV antibiotic dose and has been febrile free since. Her respiratory symptoms have markedly improved. She was eventually went off for continuous O2 per nasal cannula. Prior to discharge, the patient only uses her oxygen nocturnally, which appears to be her baseline. During her hospital stay, the patient has not been smoking. She uses nicotine patch, although she is not happy about this. There was also a significant improvement of appetite noted during her rehab course. The patient's weight improved from admission weight of 122 pounds to discharge weight of 130.9. On 12/24/2018, the patient is adamant to go home. Family is comfortable taking the patient back home. She is highly recommended to not smoke after this. She will follow up with PCP in 1 week with repeat chest x-ray at that time. Vital signs prior to discharge; blood pressure 128/61, temperature 98.3, pulse 72, respirations 20, O2 saturations 90% on room air, weight 130 pounds and 9 ounces, height 5 feet 4 inches. TIME SPENT: Time spent on this discharge 32 minutes in examining the patient, counseling and coordinating care. Job ID: [id number]
== END 2018-12-24 17:11 | disposition home or self-care (01) | DRG 947 ==
LOC: MADMS 12:40
PROVIDERS: ADMIT Family Medicine; ATTEND Family Medicine
DX: R53.1 Weakness (principal); J18.1 Lobar pneumonia, unspecified organism; N39.0 Urinary tract infection, site not specified; F03.90 Unspecified dementia, unspecified severity, without behavioral disturbance, psychotic disturbance, mood disturbance, and anxiety; J44.9 Chronic obstructive pulmonary disease, unspecified; I25.10 Atherosclerotic heart disease of native coronary artery without angina pectoris; I10 Essential (primary) hypertension; Z66 Do not resuscitate; F17.200 Nicotine dependence, unspecified, uncomplicated; R26.89 Other abnormalities of gait and mobility; G47.09 Other insomnia; R63.4 Abnormal weight loss; R09.02 Hypoxemia; F32.9 Major depressive disorder, single episode, unspecified; F41.9 Anxiety disorder, unspecified; Z90.49 Acquired absence of other specified parts of digestive tract; Z90.89 Acquired absence of other organs; Z98.51 Tubal ligation status; Z88.8 Allergy status to other drugs, medicaments and biological substances; Z88.0 Allergy status to penicillin; Z88.5 Allergy status to narcotic agent; Z91.048 Other nonmedicinal substance allergy status; Z79.82 Long term (current) use of aspirin; R63.0 Anorexia; Z68.22 Body mass index [BMI] 22.0-22.9, adult
CPT/HCPCS: 71046; 80048; 85025; 87040; 90471; 90662; 94640; G0008; J2543; J3490; J7620

== ENCOUNTER 2019-04-05 18:27 | Inpatient (IN) | payer MEDICARE ==
[2019-04-05] MEDS ORDERED: methylPREDNISolone Sod Succ/PF 125 MG/2 ML VIAL ONE (18:59)
[2019-04-05 19:13] LABS: #Basophils 0.1 thou/uL (0.0-0.2); #Eosinphils 0.1 thou/uL (0.0-0.7); #Monocytes 0.8 thou/uL (0.11-0.59); #Neutrophils 4.5 thou/uL (1.40-6.50); %Eosinophils 1.1 % (0.0-10.0); %Lymphocytes 26.3 % (21.0-51.0); %Monocytes 10.3 % (0.0-10.0); %Neutrophils 61.2 % (42.0-75.0); Hemoglobin 12.7 g/dL (12.0-16.0); Mean Corpuscular HGB CONC 30.9 g/dL (32.0-36.0); Mean Corpuscular Hemoglobin 28.2 pg (27.0-31.0); Mean Corpuscular Volume 91.2 fL (78.0-98.0); Mean Platelet Volume 7.5 fL (7.4-10.4); Platelet Count 160 thou/uL (130-400); RBC Distribution Width 11.8 % (11.5-14.5); White Blood Cell (WBC) Count 7.4 thou/uL (4.8-10.8)
--- NOTE | 2019-04-05 19:26 | RAD ---
CHEST ONE VIEW: 04/05/19 INDICATION: Coughing with COPD and dyspnea. COMPARISON: Prior exam dated 12/17/18. FINDINGS: The patient is rotated to the left. There is stable mild cardiomegaly. No consolidation is evident. C OPD change is stable appearing. No pneumothorax is evident. No acute osseous abnormality is evident. IMPRESSION: No acute abnormality. POS: BH
[2019-04-05 19:31] LABS: ALT (SGPT) 7 U/L (8-55); AST (SGOT) 11 U/L (5-34); Alkaline Phosphatase 111 U/L (40-110); Anion Gap 18 mmol/L (10-20); BUN (Urea Nitrogen) 14 mg/dL (9.8-20.1); Bilirubin, Total 0.2 mg/dL (0.2-1.2); Calc. Creatinine Clearance 0 mL/min (70-130); Calcium 9.9 mg/dL (7.8-10.44); Carbon Dioxide 25 mmol/L (23-31); Chloride 104 mmol/L (98-107); Estimated GFR-MDRD 57; Globulin 3.5 g/dL (2.4-3.5); Glucose 84 mg/dL (83-110); Lipase 87 U/L (8-78); Potassium 3.7 mmol/L (3.5-5.1); Protein, Total 7.5 g/dL (6.0-8.3); Sodium 143 mmol/L (136-145)
[2019-04-05 21:21] VITALS: BMI 20.9
[2019-04-05] MEDS ORDERED: Enoxaparin Sodium 40 MG/0.4 ML SYRINGE SC SCH (22:30)
[2019-04-05] MEDS ORDERED: Albuterol Sulfate 2.5 mg/0.5 ml Neb NEB PRN (22:37)
[2019-04-05] MEDS ORDERED: Acetaminophen 325 MG TAB PO PRN (22:38)
[2019-04-05] MEDS ORDERED: Albuterol Sulfate 2.5 mg/3 ml Neb NEB PRN (22:43)
[2019-04-05] MEDS ORDERED: traZODone HCl 50 MG TAB PO SCH (22:45)
[2019-04-06] MEDS: methylPREDNISolone Sod Succ/PF 125 MG/2 ML VIAL IVP SCH ×2 (04:09→13:16)
[2019-04-06] MEDS: Amlodipine 5 MG TAB PO SCH (08:54)
[2019-04-06] MEDS: Aspirin 81 mg Enteric Coated Tablet PO SCH (08:54)
[2019-04-06] MEDS: busPIRone HCl 5 MG TAB PO SCH ×2 (08:54→20:26)
--- NOTE | 2019-04-06 09:31 | RAD ---
PORTABLE CHEST: HISTORY: COPD. Shortness of breath. COMPARISON: 04/05/2019 FINDINGS: The lungs are clear of infiltrate. No evidence of vascular congestion or effusion. Heart size is with in the normal range. IMPRESSION: No acute infiltrate. No interval change. POS: [facility]
[2019-04-06] MEDS ORDERED: Nystatin Cream 15 GM TUBE TOP SCH (13:30)
[2019-04-06] MEDS: Enoxaparin Sodium 40 MG/0.4 ML SYRINGE SC SCH (20:26)
[2019-04-06] MEDS: predniSONE 20 MG TAB PO SCH (20:27)
[2019-04-06] MEDS: traZODone HCl 50 MG TAB PO SCH (20:27)
[2019-04-06] MEDS: Atorvastatin Calcium 40 MG TAB PO SCH (20:27)
[2019-04-06] MEDS: Mirtazapine 15 MG TAB PO SCH (20:28)
[2019-04-06] MEDS: Nystatin Cream 15 GM TUBE TOP SCH (20:28)
[2019-04-06] MEDS ORDERED: Azithromycin 250 MG TAB PO SCH (21:00)
--- NOTE | 2019-04-06 21:50 | HP ---
REASON FOR ADMISSION: Shortness of breath. HISTORY OF THE PRESENT ILLNESS AND HOSPITAL COURSE: Ms. Canada is an 83-year- old, female with significant history of COPD, chronic tobacco use, chronic hypoxia on intermittent use of home O2 and hypertension. The patient continues to smoke at home. Over the past 3-4 days, the patient has been having cough, shortness of breath, intermittent wheezing. Above symptoms have progressively worsened. She went to the ER on 04/04/2019 secondary to worsening shortness of breath. Upon presentation at the ER, the patient's O2 saturation was noted between 91% to 94% room air, but reports to have very tight breathing. Patient also reporrts that the power went off at home and she only has a concentrator and no canisters of oxygen at home for emergencies. She had increased shortness of breath and was very anxious not to get her oxygen on time secondary to power shortage. Upon presentation, patient was reported to be in mild respiratory distress, diminished breath sounds all throughout upper lobes to lower lobes, pursed lip breathing and tachypneic. Her chest x- ray showed mild cardiomegaly without consolidation. COPD changes are stable appearing. No pneumothorax was evident. No acute osseous abnormality was evident. The patient's lab showed no significant leukocytosis with elevated D-dimer at 1.63. Troponin is 0.019. Beta natriuretic peptide of 47.9. EKG showed conduction normal, ST segments normal, P-waves normal, axis normal, Q-waves in 3. No change from prior EKG per ER report. Treatment received at the ER includes DuoNeb, Solu-Medrol and Levaquin IV 750. The patient's Wells score is 0. Further evaluation for PE does not appear indicated despite mildly elevated D-dimer per ER physician. She was admitted to [facility] for COPD exacerbation. The patient's Solu-Medrol was continued in the floor, continuous DuoNebs q.6 hours was received. The patient remained afebrile. The patient had a smooth overnight course. This morning, the patient reports that she was able to sleep well and rested well overnight. She reports she is feeling much better. She is currently on continuous O2 therapy at 2 L per nasal cannula. Denies active chest pain, pain with breathing, bloody sputum. She admits that she continued tobacco smoking at home despite of the active shortness of breath. She states at this time she will "not smoke again." She is requesting for Nicoderm patch. PAST MEDICAL HISTORY: COPD, chronic tobacco use, hypertension, anxiety, history of migraine headache, hypercholesterolemia, previous stroke, arthritis, CAD, recurrent UTI, basal cell carcinoma. PAST SURGICAL HISTORY: Gallbladder surgery, cancer removal from the face, cancer removal from the right arm 06/2017. FAMILY HISTORY: Noncontributory. SOCIAL HISTORY: The patient is a . She smoked more than a pack a day for several years. She denies alcohol. She denies illicit drug use. ALLERGIES: 1. KEFLEX-THROAT SWELLING. 2. DIAZEPAM-CONFUSION. 3. HYDROCODONE-CONFUSION. 4. TICLOPIDINE-UNKNOWN REACTION. 5. VIOXX-UNKNOWN REACTION. 6. CONTRAST DYE-ANAPHYLACTIC REACTION. 7. LORCET-CONFUSION. 8. CODEINE-CONFUSION. REVIEW OF SYSTEMS: GENERAL: Denies fever and chills. Reports fatigue, general weakness. HEENT: No acute visual changes or hearing changes. RESPIRATORY: As per HPI. CARDIAC: Denies chest pain, dyspnea on exertion, syncope, palpitations. GI: No nausea, vomiting, abdominal pain, diarrhea, constipation. GENITOURINARY: No dysuria, hematuria, frequency, or urgency. MUSCULOSKELETAL: Reports intermittent arthralgia. No myalgia. No joint effusions. SKIN: No rashes. No lesions. No pruritus. PSYCHIATRIC: Reports anxiety and insomnia.No hallucinations. CURRENT MEDICATIONS: 1. DuoNeb q.6 hours p.r.n. 2. Amlodipine 10 mg p.o. daily. 3. Aspirin 81 mg p.o. daily. 4. Atorvastatin 40 mg p.o. daily. 5. Remeron 7.5 mg p.o. at bedtime. 6. Trazodone 50 mg p.o. at bedtime. PHYSICAL EXAMINATION: VITAL SIGNS: Blood pressure 107/54, temperature 97.3, pulse 83, respirations 16 , O2 sats 94% on room air, weight 122 pounds and 2 ounces, height 5 feet 4 inches. GENERAL: The patient is awake, alert, oriented x2, comfortably resting in bed. Family represented by his grand son-in-law who was present at the time of examination, not in acute distress. HEENT: Normocephalic, atraumatic. PERRL. Intact EOM. Anicteric sclerae. Oral mucosa is moist. NECK: Supple. No LAD. Flat JVD. CHEST: Normal excursion. Nonlabored breathing. Symmetrical. Good prolonged expiratory phase. Diminished breath sounds all over. No rales, no wheezes. No rhonchi, no crackles. CARDIAC: RRR. Normal S1 and S2. ABDOMEN: Flat, soft. Normoactive bowel sounds. Nondistended, nontender. No rebound or guarding. Negative CVA tenderness bilaterally. EXTREMITIES: No edema. No cyanosis. PSYCHIATRIC: Appears calm with appropriate demeanor and affect. NEUROLOGIC: Alert and oriented x3. Unsteady gait. DTRs 2+. SKIN: Moist and warm. Erythema to the perineum, perineal rash. ASSESSMENT AND PLAN: 1. Acute chronic obstructive pulmonary disease exacerbation. 2. Ekwfl-cq-okbmrbg hypoxia, O2 requiring. 3. Elevated D-dimer, none specified with Well's score of 0, likely secondary to acute chronic obstructive pulmonary disease exacerbation, less likely pulmonary embolism. 4. Hypertension. 5. Anxiety/depression. 6. Chronic insomnia. 7. Candidal dermatitis, inframammary. 8. Chronic tobacco use and motivated to quit. PLAN: 1. The patient is admitted to Med/Surg for inpatient management of COPD exacerbation, naojz-xq-ggnacoa hypoxia, O2 requiring. We will continue IV steroid and shift to oral when clinically indicated, to wean off appropriately. 2. Continue all other current medications as per list. 3. We will add topical antifungal for the dermatitis. 4. Nicoderm patch daily. 5. Repeat chest x-ray showed no acute evidence of pneumonia, bronchitis, pneumothorax, or consolidation. We will shift IV antibiotic to oral at this time. Started on Z-Matti. 6. GI prophylaxis with PPI. DVT prophylaxis with Lovenox. 7. Further recommendations depending on the hospital stay. 8. Estimated acute stay 2-3 days. 9. Code status. The patient initially reports full code from the ER. Currently , changed her code status to DNAR in the presence of her grand son-in-law, Aj Gonzalez who reports that at previous hospitalization patient was also DNAR. The patient is deemed clinically appropriate to decide for herself. Job ID: [id number] [facility]
[2019-04-07] MEDS: Nicotine 21 MG PATCH TD SCH (08:45)
[2019-04-07] MEDS: busPIRone HCl 5 MG TAB PO SCH ×2 (08:52→20:31)
[2019-04-07] MEDS: Aspirin 81 mg Enteric Coated Tablet PO SCH (08:52)
[2019-04-07] MEDS: Amlodipine 5 MG TAB PO SCH (08:52)
[2019-04-07] MEDS: predniSONE 20 MG TAB PO SCH ×2 (08:52→20:31)
[2019-04-07] MEDS: Nystatin Cream 15 GM TUBE TOP SCH ×2 (08:53→20:35)
[2019-04-07] MEDS: Enoxaparin Sodium 40 MG/0.4 ML SYRINGE SC SCH (20:31)
[2019-04-07] MEDS: Atorvastatin Calcium 40 MG TAB PO SCH (20:32)
[2019-04-07] MEDS: traZODone HCl 50 MG TAB PO SCH (20:32)
[2019-04-07] MEDS: Mirtazapine 15 MG TAB PO SCH (20:32)
[2019-04-07] MEDS: Azithromycin 250 MG TAB PO SCH (20:32)
[2019-04-08] MEDS: Amlodipine 5 MG TAB PO SCH (08:43)
[2019-04-08] MEDS: Nicotine 21 MG PATCH TD SCH (08:43)
[2019-04-08] MEDS: predniSONE 20 MG TAB PO SCH ×2 (08:43→21:07)
[2019-04-08] MEDS: Nystatin Cream 15 GM TUBE TOP SCH ×2 (08:44→21:06)
[2019-04-08] MEDS: busPIRone HCl 5 MG TAB PO SCH ×2 (08:44→21:06)
[2019-04-08] MEDS: Aspirin 81 mg Enteric Coated Tablet PO SCH (08:44)
[2019-04-08] MEDS: Atorvastatin Calcium 40 MG TAB PO SCH (21:06)
[2019-04-08] MEDS: Enoxaparin Sodium 40 MG/0.4 ML SYRINGE SC SCH (21:06)
[2019-04-08] MEDS: Azithromycin 250 MG TAB PO SCH (21:06)
[2019-04-08] MEDS: Mirtazapine 15 MG TAB PO SCH (21:07)
[2019-04-08] MEDS: traZODone HCl 50 MG TAB PO SCH (21:09)
[2019-04-09] MEDS: Aspirin 81 mg Enteric Coated Tablet PO SCH (08:30)
[2019-04-09] MEDS: predniSONE 20 MG TAB PO SCH (08:31)
[2019-04-09] MEDS: Amlodipine 5 MG TAB PO SCH (08:31)
[2019-04-09] MEDS: busPIRone HCl 5 MG TAB PO SCH (08:31)
[2019-04-09 08:32] VITALS: BP 117/60
[2019-04-09] MEDS: Nicotine 21 MG PATCH TD SCH (08:32)
[2019-04-09] MEDS: Nystatin Cream 15 GM TUBE TOP SCH (08:32)
[2019-04-09 09:22] VITALS: TEMP 97.7
--- NOTE | 2019-04-11 05:51 | PQF ---
[employer] Team Member Crystal Reports Winform Miri,ADDISONCARLA HILL MD [id number] CLINICAL DOCUMENTATION CLARIFICATION FORM: POST DISCHARGE Addendum to original discharge summary date: 004/09/2019 Late entry note date: 04/11/2019 DATE: 04/11/2019 ATTN:CARLA MENENDEZ MD Please exercise your independent, professional judgment in responding to the clarification form. Clinical indicators are provided on the bottom of this form for your review Please check appropriate box(s): [ ] Acute Respiratory Failure: [ ] with Hypoxia[ ] with Hypercapnia [ / ] Acute On Chronic Respiratory Failure: [ / ] with Hypoxia [ ] with Hypercapnia [ ] Acute Respiratory Failure due to: (etiology) [ ] ARDS (Acute Respiratory Distress Syndrome) [ ] Chronic Respiratory Failure only [ ] with Hypoxia [ ] with Hypercapnia [ ] Hypoxia [ ] Other diagnosis [ ] Unable to determine In addition, please specify: Present on Admission (POA): [ / ] Yes [ ] No [ ] Unable to determine For continuity of documentation, please document condition throughout progress notes and discharge summary. Thank You. CLINICAL INDICATORS - SIGNS / SYMPTOMS / LABS Shortness of breath and wheezing - Documented in H&P on 04/05 by CARLA MENENDEZ MD Chronic Tobacco user - Documented in H&P on 04/05 by CARLA MENENDEZ MD Chronic Hypoxia on intermittent use of O2 - Documented in H&P on 04/05 by CARLA MENENDEZ MD Acute on chronic hypoxia O2 requiring - Documented in H&P on 04/05 by CARLA MENENDEZ MD O2 saturation 91 on nasal cannula on 04/06 - Documented in Vital signs RISK FACTORS COPD exacerbation - Documented in H&P on 04/05 by CARLA MENENDEZ MD CAD HTN TREATMENTS: O2 Delivery - Nasal cannula Motivated to Quit smoking - Documented in H&P on 04/05 by CARLA MENENDEZ MD We will continue IV steroid - Documented in H&P on 04/05 by CARLA MENENDEZ MD [employer] Team Member Crystal Reports Winform Viewer (This form is maintained as a part of the permanent medical record) 2014 [employer]. All Rights Reserved [email or web address] [phone] MTDD
== END 2019-04-09 10:27 | disposition swing bed (61) | DRG 189 ==
LOC: MADERS 18:27 → MADMS 19:54
PROVIDERS: ADMIT Family Medicine; ATTEND Family Medicine
DX: J96.21 Acute and chronic respiratory failure with hypoxia (principal); J44.1 Chronic obstructive pulmonary disease with (acute) exacerbation; F17.210 Nicotine dependence, cigarettes, uncomplicated; I10 Essential (primary) hypertension; F41.9 Anxiety disorder, unspecified; G43.909 Migraine, unspecified, not intractable, without status migrainosus; Z86.73 Personal history of transient ischemic attack (TIA), and cerebral infarction without residual deficits; M19.91 Primary osteoarthritis, unspecified site; I25.10 Atherosclerotic heart disease of native coronary artery without angina pectoris; Z85.828 Personal history of other malignant neoplasm of skin; Z79.899 Other long term (current) drug therapy; Z88.8 Allergy status to other drugs, medicaments and biological substances; Z88.5 Allergy status to narcotic agent; Z79.82 Long term (current) use of aspirin; G47.00 Insomnia, unspecified; L30.8 Other specified dermatitis
CPT/HCPCS: 71045; 80053; 83690; 83880; 84484; 85025; 85379; 87040; 87804; 93005; 94640; 94760; 96365; 96375; J1650; J1956; J2930; J7512; J7620

== ENCOUNTER 2019-04-09 08:49 | Inpatient (IN) | payer MEDICARE ==
[2019-04-09] MEDS ORDERED: Acetaminophen 325 MG TAB PO PRN ×2 (09:53)
[2019-04-09] MEDS ORDERED: Albuterol Sulfate 2.5 mg/3 ml Neb NEB PRN (09:53)
[2019-04-09 11:12] VITALS: BMI 20.9
[2019-04-09] MEDS ORDERED: BUSPIRONE HCL PO SCH (21:00)
[2019-04-09] MEDS ORDERED: traZODone HCl 50 MG TAB PO SCH (21:00)
[2019-04-09] MEDS ORDERED: Mirtazapine 15 MG TAB PO SCH (21:00)
[2019-04-09] MEDS ORDERED: busPIRone HCl 5 MG TAB PO SCH (21:00)
[2019-04-09] MEDS ORDERED: Atorvastatin Calcium 40 MG TAB PO SCH (21:00)
[2019-04-09] MEDS: Azithromycin 250 MG TAB PO SCH (21:01)
[2019-04-09] MEDS: Atorvastatin Calcium 40 MG TAB PO SCH (21:01)
[2019-04-09] MEDS: busPIRone HCl 5 MG TAB PO SCH (21:02)
[2019-04-09] MEDS: Enoxaparin Sodium 40 MG/0.4 ML SYRINGE SC SCH (21:02)
[2019-04-09] MEDS: predniSONE 20 MG TAB PO SCH (21:03)
[2019-04-09] MEDS: Nystatin Cream 15 GM TUBE TOP SCH (21:03)
[2019-04-09] MEDS: Mirtazapine 15 MG TAB PO SCH (21:03)
[2019-04-09] MEDS: traZODone HCl 50 MG TAB PO SCH (21:04)
[2019-04-10] MEDS ORDERED: Aspirin 81 mg Enteric Coated Tablet PO SCH (09:00)
[2019-04-10] MEDS ORDERED: Amlodipine 5 MG TAB PO SCH (09:00)
[2019-04-10] MEDS: predniSONE 20 MG TAB PO SCH ×2 (09:18→20:08)
[2019-04-10] MEDS: busPIRone HCl 5 MG TAB PO SCH ×2 (09:18→20:08)
[2019-04-10] MEDS: Amlodipine 5 MG TAB PO SCH (09:18)
[2019-04-10] MEDS: Nicotine 21 MG PATCH TD SCH (09:19)
[2019-04-10] MEDS: Aspirin 81 mg Enteric Coated Tablet PO SCH (09:19)
[2019-04-10] MEDS: Nystatin Cream 15 GM TUBE TOP SCH ×2 (09:19→20:10)
[2019-04-10] MEDS: Azithromycin 250 MG TAB PO SCH (20:07)
[2019-04-10] MEDS: Atorvastatin Calcium 40 MG TAB PO SCH (20:07)
[2019-04-10] MEDS: Enoxaparin Sodium 40 MG/0.4 ML SYRINGE SC SCH (20:09)
[2019-04-10] MEDS: traZODone HCl 50 MG TAB PO SCH (20:09)
[2019-04-10] MEDS: Mirtazapine 15 MG TAB PO SCH (20:09)
[2019-04-11] MEDS ORDERED: predniSONE 20 MG TAB PO SCH (09:00)
[2019-04-11] MEDS: busPIRone HCl 5 MG TAB PO SCH ×2 (10:21→20:41)
[2019-04-11] MEDS: Aspirin 81 mg Enteric Coated Tablet PO SCH (10:21)
[2019-04-11] MEDS: Nicotine 21 MG PATCH TD SCH (10:21)
[2019-04-11] MEDS: Amlodipine 5 MG TAB PO SCH (10:22)
[2019-04-11] MEDS: Nystatin Cream 15 GM TUBE TOP SCH ×2 (10:23→20:42)
[2019-04-11] MEDS: predniSONE 20 MG TAB PO SCH (17:58)
--- NOTE | 2019-04-11 18:09 | RAD ---
PA AND LATERAL CHEST: History: Chest pain. Comparison: 04-06-2019 FINDINGS: Heart size is within normal limits. There is some atherosclerotic change of the aorta. The lungs are clear of any infiltrative process. Some minimal blunting to the left posterior sulcus seen which is f elt to be chronic in nature. There is a pleural effusion demonstrated on an older 12-17-18 study. IMPRESSION: No acute findings. POS: [facility]
[2019-04-11] MEDS: Enoxaparin Sodium 40 MG/0.4 ML SYRINGE SC SCH (20:41)
[2019-04-11] MEDS: Atorvastatin Calcium 40 MG TAB PO SCH (20:41)
[2019-04-11] MEDS: Mirtazapine 15 MG TAB PO SCH (20:42)
[2019-04-11] MEDS: traZODone HCl 50 MG TAB PO SCH (20:42)
[2019-04-12] MEDS: predniSONE 20 MG TAB PO SCH ×2 (08:34→16:28)
[2019-04-12] MEDS: Amlodipine 5 MG TAB PO SCH (08:34)
[2019-04-12] MEDS: busPIRone HCl 5 MG TAB PO SCH ×2 (08:35→21:02)
[2019-04-12] MEDS: Aspirin 81 mg Enteric Coated Tablet PO SCH (08:35)
[2019-04-12] MEDS: Nicotine 21 MG PATCH TD SCH (08:35)
[2019-04-12] MEDS: Nystatin Cream 15 GM TUBE TOP SCH ×2 (08:35→21:03)
[2019-04-12] MEDS: Enoxaparin Sodium 40 MG/0.4 ML SYRINGE SC SCH (21:02)
[2019-04-12] MEDS: traZODone HCl 50 MG TAB PO SCH (21:02)
[2019-04-12] MEDS: Atorvastatin Calcium 40 MG TAB PO SCH (21:02)
[2019-04-12] MEDS: Mirtazapine 15 MG TAB PO SCH (21:02)
[2019-04-13] MEDS: Amlodipine 5 MG TAB PO SCH (08:16)
[2019-04-13] MEDS: busPIRone HCl 5 MG TAB PO SCH ×2 (08:16→20:36)
[2019-04-13] MEDS: Nystatin Cream 15 GM TUBE TOP SCH ×2 (08:16→20:37)
[2019-04-13] MEDS: Aspirin 81 mg Enteric Coated Tablet PO SCH (08:16)
[2019-04-13] MEDS: Nicotine 21 MG PATCH TD SCH (08:18)
[2019-04-13] MEDS: predniSONE 20 MG TAB PO SCH (08:23)
[2019-04-13] MEDS: Atorvastatin Calcium 40 MG TAB PO SCH (20:36)
[2019-04-13] MEDS: Mirtazapine 15 MG TAB PO SCH (20:36)
[2019-04-13] MEDS: traZODone HCl 50 MG TAB PO SCH (20:36)
[2019-04-13] MEDS: Enoxaparin Sodium 40 MG/0.4 ML SYRINGE SC SCH (20:37)
[2019-04-14] MEDS: Nicotine 21 MG PATCH TD SCH (08:39)
[2019-04-14] MEDS: Aspirin 81 mg Enteric Coated Tablet PO SCH (08:40)
[2019-04-14] MEDS: busPIRone HCl 5 MG TAB PO SCH ×2 (08:40→20:56)
[2019-04-14] MEDS: Amlodipine 5 MG TAB PO SCH (08:41)
[2019-04-14] MEDS: predniSONE 20 MG TAB PO SCH (08:41)
[2019-04-14] MEDS: Nystatin Cream 15 GM TUBE TOP SCH ×2 (08:41→20:59)
[2019-04-14] MEDS: Enoxaparin Sodium 40 MG/0.4 ML SYRINGE SC SCH (20:56)
[2019-04-14] MEDS: Atorvastatin Calcium 40 MG TAB PO SCH (20:56)
[2019-04-14] MEDS: Mirtazapine 15 MG TAB PO SCH (20:57)
[2019-04-14] MEDS: traZODone HCl 50 MG TAB PO SCH (20:58)
[2019-04-15 07:44] VITALS: BP 137/64; TEMP 97.2
[2019-04-15] MEDS: Amlodipine 5 MG TAB PO SCH (08:41)
[2019-04-15] MEDS: Aspirin 81 mg Enteric Coated Tablet PO SCH (08:41)
[2019-04-15] MEDS: busPIRone HCl 5 MG TAB PO SCH (08:41)
[2019-04-15] MEDS: predniSONE 20 MG TAB PO SCH (08:41)
[2019-04-15] MEDS: Nystatin Cream 15 GM TUBE TOP SCH (08:42)
[2019-04-15] MEDS: Nicotine 21 MG PATCH TD SCH (08:42)
[2019-04-16] MEDS ORDERED: predniSONE 5 MG TAB PO SCH (08:00)
--- NOTE | 2019-04-18 15:38 | DIS ---
DATE OF ADMISSION: 04/09/2019 DATE OF DISCHARGE: 04/15/2019 REASON FOR ADMISSION: 1. Shortness of breath, general weakness, deconditioning. HISTORY OF PRESENT ILLNESS: Ms. Canada is known to have chronic obstructive pulmonary disease here with chronic respiratory failure associated with hypoxia. She is supposed to be on continuous home O2 therapy, but uses her oxygen only as needed at home mostly at night. The patient was admitted recently at [facility] on 04/05/2019 secondary to acute COPD exacerbation associated with hypoxia requiring continuous O2 therapy per nasal cannula. The patient was treated appropriately at [facility] with bronchodilators, IV steroid that was switched to oral and eventually tapered off. She also received an oral antibiotic course. The patient did well over the course. Her chest x-ray on 04/05/2019 showed stable mild cardiomegaly with stable COPD change. No consolidation nor pneumothorax nor acute osseous abnormality was evident. Repeat chest x-ray has been stable, showed no acute findings as well. The patient was [facility] secondary to deconditioned status associated with general weakness and unsteadiness of gait. The patient did well over time with therapy. She was walking 400 feet using rolling walker prior to discharge. She remained to be on continuous O2 per nasal cannula between 2-3 L. During this hospitalization, patient stopped smoking with the help of nicotine patch. Her oral steroid was tapered off and prior to discharge, she is only on prednisone 5 mg p.o. daily that she will complete for the next 3 days at home. She will continue using her DuoNeb at home in a scheduled and p.r.n. basis. She will also start her Symbicort at home b.i.d. Prior to discharge, we had a lengthy discussion with the patient in the presence of her daughter regarding patient's compliance of medications, oxygen use, tobacco use, and nutritional intake. During patient's hospital stay, she has gained 4 pounds. She is then highly recommended to have a close and direct supervision with her nutritional status at home. The patient's daughter was in agreement to this. On 04/15/2019, patient was clinically deemed stable to go back home with her granddaughter, Lyric Gonzalez as the primary analysis tester. PHYSICAL EXAMINATION: VITAL SIGNS: Prior to discharge; blood pressure 137/64, pulse 80, respiration 20, temperature 97.2, O2 saturations 96% at 3 L per nasal cannula, weight 126 pounds. Job ID: [id number] MTDD
[2019-04-19] MEDS ORDERED: predniSONE 5 MG TAB PO SCH (08:00)
== END 2019-04-15 12:31 | disposition home or self-care (01) | DRG 189 ==
LOC: MADMS 10:30
PROVIDERS: ADMIT Family Medicine; ATTEND Family Medicine
DX: J96.21 Acute and chronic respiratory failure with hypoxia (principal); J44.1 Chronic obstructive pulmonary disease with (acute) exacerbation; R53.1 Weakness; Z91.040 Latex allergy status; R53.81 Other malaise; R26.81 Unsteadiness on feet; I10 Essential (primary) hypertension; F41.9 Anxiety disorder, unspecified; F32.9 Major depressive disorder, single episode, unspecified; G47.00 Insomnia, unspecified; K59.00 Constipation, unspecified
CPT/HCPCS: 71046; J1650; J7512; J7620

== ENCOUNTER 2019-08-07 09:17 | Inpatient (IN) | payer MEDICARE ==
[2019-08-07 09:45] LABS: Bilirubin Negative (Negative); Blood, Urine Moderate (Negative); Glucose, Urine (Dipstick) Negative (Negative); Leukocyte Large (Negative); Nitrite Negative (Negative); Protein, Urine (Dipstick) 30 mg/dL (Neg-Trace); Urobilinogen 0.2 mg/dL (Less than 2)
[2019-08-07 09:46] LABS: Clarity Cloudy (Clear)
[2019-08-07 09:50] LABS: Bacteria/HPF Rare-Few HPF (None Seen); WBC/HPF Greater Than 50 HPF (0-3)
[2019-08-07] MEDS ORDERED: Sodium Chloride 0.9% 1,000 ML ONE (10:06)
[2019-08-07] MEDS ORDERED: Levofloxacin 500 mg/D5W 100 ml Premix Bag ONE (10:06)
[2019-08-07] MEDS ORDERED: Prochlorperazine 10 MG/2 ML VIAL ONE ×2 (10:06→11:31)
[2019-08-07 10:10] LABS: #Basophils 0.1 thou/uL (0.0-0.2); #Eosinphils 0.1 thou/uL (0.0-0.7); #Lymphocytes 3.2 thou/uL (1.20-3.40); #Monocytes 0.6 thou/uL (0.11-0.59); #Neutrophils 7.1 thou/uL (1.40-6.50); %Basophils 0.8 % (0.0-1.0); %Eosinophils 0.7 % (0.0-10.0); %Lymphocytes 28.8 % (21.0-51.0); %Monocytes 5.6 % (0.0-10.0); %Neutrophils 64.1 % (42.0-75.0); Hemoglobin 15.8 g/dL (12.0-16.0); Mean Corpuscular HGB CONC 32.9 g/dL (32.0-36.0); Mean Corpuscular Hemoglobin 29.6 pg (27.0-31.0); Mean Corpuscular Volume 89.8 fL (78.0-98.0); Mean Platelet Volume 8.4 fL (7.4-10.4); Platelet Count 212 thou/uL (130-400); RBC Distribution Width 11.8 % (11.5-14.5); Red Blood Cell (RBC) Count 5.34 mill/uL (4.20-5.40); White Blood Cell (WBC) Count 11.1 thou/uL (4.8-10.8)
[2019-08-07 10:28] LABS: ALT (SGPT) 9 U/L (8-55); AST (SGOT) 14 U/L (5-34); Albumin 4.4 g/dL (3.4-4.8); Alkaline Phosphatase 104 U/L (40-110); Anion Gap 19 mmol/L (10-20); BUN (Urea Nitrogen) 10 mg/dL (9.8-20.1); Bilirubin, Total 0.3 mg/dL (0.2-1.2); Calc. Creatinine Clearance 0 mL/min (70-130); Calcium 10.1 mg/dL (7.8-10.44); Carbon Dioxide 23 mmol/L (23-31); Chloride 103 mmol/L (98-107); Estimated GFR-MDRD 51; Globulin 3.6 g/dL (2.4-3.5); Glucose 103 mg/dL (83-110); Potassium 3.6 mmol/L (3.5-5.1); Sodium 141 mmol/L (136-145)
[2019-08-07] MEDS ORDERED: Nicotine 21 MG PATCH TOP SCH (12:00)
[2019-08-07] MEDS ORDERED: Ondansetron PF 4 MG/2 ML Vial SLOW IVP PRN (12:36)
[2019-08-07] MEDS ORDERED: Acetaminophen 325 MG TAB PO PRN ×2 (12:36→13:41)
[2019-08-07] MEDS ORDERED: Prevnar 13-Val Conj/PF 0.5 ML SYRINGE IM ONE (13:00)
[2019-08-07] MEDS ORDERED: Cholestyramine/Aspartame 4 gm Packet PO SCH (13:47)
[2019-08-07] MEDS: Sodium Chloride 0.9% 1,000 ML IV SCH (13:53)
[2019-08-07] MEDS ORDERED: Nicotine 7 MG PATCH TOP SCH (14:00)
[2019-08-07] MEDS ORDERED: Mometasone/Formoterol 200/5 60 PUFF INH SCH (19:00)
[2019-08-07] MEDS ORDERED: Mirtazapine 15 MG TAB PO SCH (21:00)
[2019-08-07] MEDS: traZODone HCl 50 MG TAB PO SCH (21:48)
[2019-08-07] MEDS: busPIRone HCl 5 MG TAB PO SCH (21:49)
[2019-08-07] MEDS: Cholestyramine/Aspartame 4 gm Packet PO SCH (22:32)
[2019-08-08] MEDS: Sodium Chloride 0.9% 1,000 ML IV SCH (01:02)
[2019-08-08 05:53] LABS: Anion Gap 13 mmol/L (10-20); BUN (Urea Nitrogen) 10 mg/dL (9.8-20.1); Calc. Creatinine Clearance 42 mL/min (70-130); Calcium 8.7 mg/dL (7.8-10.44); Carbon Dioxide 23 mmol/L (23-31); Chloride 115 mmol/L (98-107); Estimated GFR-MDRD 62; Glucose 94 mg/dL (83-110); Potassium 3.8 mmol/L (3.5-5.1); Sodium 147 mmol/L (136-145)
[2019-08-08 05:59] LABS: #Basophils 0.1 thou/uL (0.0-0.2); #Eosinphils 0.1 thou/uL (0.0-0.7); #Monocytes 0.5 thou/uL (0.11-0.59); #Neutrophils 3.2 thou/uL (1.40-6.50); %Basophils 1.3 % (0.0-1.0); %Eosinophils 0.9 % (0.0-10.0); %Lymphocytes 35.3 % (21.0-51.0); %Monocytes 7.9 % (0.0-10.0); %Neutrophils 54.5 % (42.0-75.0); Hemoglobin 12.7 g/dL (12.0-16.0); Mean Corpuscular HGB CONC 32.5 g/dL (32.0-36.0); Mean Corpuscular Hemoglobin 29.5 pg (27.0-31.0); Mean Corpuscular Volume 90.7 fL (78.0-98.0); Mean Platelet Volume 7.1 fL (7.4-10.4); Platelet Count 125 thou/uL (130-400); RBC Distribution Width 11.8 % (11.5-14.5); Red Blood Cell (RBC) Count 4.29 mill/uL (4.20-5.40); White Blood Cell (WBC) Count 5.8 thou/uL (4.8-10.8)
[2019-08-08 06:51] LABS: Hemoglobin 13.6 g/dL (12.0-16.0)
[2019-08-08] MEDS: Amlodipine 5 MG TAB PO SCH (10:15)
[2019-08-08] MEDS: Aspirin 81 mg Enteric Coated Tablet PO SCH (10:15)
[2019-08-08] MEDS: busPIRone HCl 5 MG TAB PO SCH ×2 (10:15→21:14)
[2019-08-08] MEDS: Cholestyramine/Aspartame 4 gm Packet PO SCH ×2 (10:16→22:03)
[2019-08-08] MEDS: Mometasone/Formoterol 200/5 60 PUFF INH SCH ×2 (10:23→21:13)
--- NOTE | 2019-08-08 11:31 | HP ---
PRIMARY CARE PHYSICIAN: Johana Hu MD. REASON FOR ADMISSION: UTI with general weakness, persistent nausea and decreased oral intake. HISTORY OF PRESENT ILLNESS AND COURSE: Ms. Canada is an 84-year-old female with history of CHF, COPD, recurrent UTI and weight loss. The patient reports symptoms of dysuria, frequency, urgency noted in the last 1-2 days. This is associated with persistent nausea and dizziness. The patient reports that she has not been eating much because of the persistent nausea lately. She feels generally weak. So went to the ER for progressively worsening symptoms. She remains febrile free. Note that patient was recently treated as outpatient for UTI symptoms as well about 2 weeks ago. No significant cough. No shortness of breath. On further examination in the ER , the patient's urine showed significant pyuria, greater than 50 with moderate blood, negative nitrites. She has mild leukocytosis at 11.1. No significant left shift. The patient received IV hydration in the ER and was started on IV Levaquin. After further observation in the ER, the patient reports persistent nausea, inability to tolerate oral intake. The patient reports that she is not eating much, even prior to the UTI symptoms. Her weight is down to 118 upon admission. Her previous weight on her last admission was 126 pounds on 04/13/2019, prior to discharge from the hospital. The patient was subsequently admitted for inpatient management of complicated UTI. She was continued on IV antibiotic pending urine culture results. Upon admission in the floor, patient had 2 episodes of loose bowel movements. She reports history of chronic diarrhea. She has not been taking her Questran in a while for unknown reason. The patient reports that she has been doing fine except for intermittent loose stools that goes away. The patient was then given a dose of Questran and loose stools improved. The patient then had a smooth course overnight with no significant new issues reported. She remains afebrile. Per staff, the patient ate well 100% since admission. The patient had a history of chronic tobacco use and she is willing to be on nicotine patch at this time. PAST MEDICAL HISTORY: COPD, recurrent UTI, tobacco abuse, and chronic hypoxia O2 requiring nocturnal only. Hypertension, anxiety, depression, chronic insomnia, history of small lung mass being followed by her guest services ambassador in [place], CAD, basal cell carcinoma of the skin, history of migraine headaches, history of hypercholesterolemia. PAST SURGICAL HISTORY: Gallbladder surgery, cancer removal from the face, cancer removal from the right arm in 06/2017. FAMILY HISTORY: Noncontributory. SOCIAL HISTORY: The patient is a . She has smoked more than a pack a day for several years. She quits every now and then, but she goes back. She stops smoking especially if she is in the hospital. She goes back easily to smoking when she gets back home. She denies alcohol use. She denies illicit drug use. She lives with her granddaughter, Betsy Gonazlez who acts as her primary staff field engineer at home. ALLERGIES: KEFLEX, THROAT SWELLING; DIAZEPAM, CONFUSION; HYDROCODONE, CONFUSION ; TICLOPIDINE, UNKNOWN REACTION; VIOXX, UNKNOWN REACTION; CONTRAST DYE, ANAPHYLACTIC REACTION; LORCET, CONFUSION; CODEINE, CONFUSION. REVIEW OF SYSTEMS: GENERAL: Denies fever and chills. Reports fatigue and general weakness. HEENT: No acute visual changes, hearing changes, cough or colds. RESPIRATORY: No active shortness of breath or breathing issues. No sputum production. No cough. CARDIAC: Denies chest pain, dyspnea on exertion, syncope, or palpitations. GI: Reports nausea and intermittent chronic loose stools. Denies vomiting, abdominal pain, rectal bleeding, melena, hematochezia, hematemesis, and constipation. GENITOURINARY: As per HPI. MUSCULOSKELETAL: Reports intermittent arthralgia. No joint effusions. SKIN: Reports intermittent pruritic rash and dermatitis. No current active lesions, pruritus. PSYCHIATRIC: Reports anxiety, depressive symptoms, and insomnia. Stable symptoms with current medications. No hallucinations. NEUROLOGIC: No focal numbness or focal weakness. ENDOCRINOLOGY: Reports decreased appetite and gradual weight loss. CURRENT MEDICATIONS: 1. Amlodipine 10 mg p.o. daily. 2. Aspirin 81 mg p.o. daily. 3. BuSpar 10 mg p.o. b.i.d. 4. Mirtazapine 7.5 mg p.o. at bedtime. 5. Mometasone/formoterol two puff inhaled b.i.d. 6. Nicoderm patch 21 mg p.o. daily. 7. Trazodone 50 mg p.o. at bedtime. PHYSICAL EXAMINATION: VITAL SIGNS: Blood pressure 133/93, temperature 97.8, pulse 93, respirations 20 , pulse ox 93% on room air. Weight 118 pounds. GENERAL: The patient is awake, alert, and oriented x3. Not in distress, comfortable in exam. Chronically fatigued looking, frail, elderly. HEENT: Normocephalic, atraumatic. PERRL. Intact EOM. Anicteric sclerae. Clear nares. Oral mucosa is moist. No lesions. [place] oropharynx. No exudate. NECK: Supple. No LAD. No thyromegaly. Flat JVD. CHEST: Normal excursion. Clear to auscultation bilaterally. CARDIAC: RRR. Normal S1, S2. No murmurs. ABDOMEN: Flat, soft. Normoactive bowel sounds. Nondistended, nontender. No rebound. No guarding. Negative CVA tenderness bilaterally. EXTREMITIES: Thin limbs. No edema. No cyanosis. NEUROLOGIC: Nonfocal, gait unsteady. PSYCHIATRIC: Appears calm, appropriate with normal affect and demeanor, nonsuicidal. SKIN: Intact. No rashes. No lesions. LABORATORY DATA: 08/07/2019, WBC 11.1, hemoglobin 15.8, hematocrit 48, platelets 212. 08/08/2019, WBC 5.8, hemoglobin 12.7 and repeat was 13.6, and then hematocrit 38.9 and repeat 42.8, platelets 125. Chemistry on 08/07/2019, sodium 141, potassium 3.6, BUN 10, creatinine 1.04. Estimated GFR 51. Lactic acid 1. Liver function tests within normal limits. Calcium 10.1. Basic metabolic panel on 08/08/2019, sodium 147, potassium 3.8, chloride 115, carbon dioxide 23, BUN 10, creatinine 0.88, estimated GFR 62, glucose 94, calcium 8.7. Urine culture pending. ASSESSMENT AND PLAN: 1. Complicated urinary tract infection. 2. History of recurrent urinary tract infection. 3. Hypertension. 4. Depression, anxiety. 5. Chronic insomnia. 6. Chronic obstructive pulmonary disease, history of tobacco use. 7. Deconditioning /general weakness. 8. The patient is admitted to Med/Surg for inpatient management of complicated UTI, possible pyelonephritis. The patient has significant history for recurrent UTI. We will continue Levaquin IV pending culture results, to adjust IV antibiotic according to culture results and possibly shift to oral antibiotic once result is known. 9. The patient is showing an acute decrease in hemoglobin overnight. This is likely delutional. The patient is asymptomatic. 10. We will continue all home medications as adjusted per list. The patient has significant gradual weight loss. I will increase mirtazapine to 15 mg p.o. daily and add nutritional supplements. Possible dietary consult if deemed necessary while in the hospital. 11. The patient is deemed to benefit from therapy while in the hospital and she agreed to this. PT/OT eval was ordered. 12. The patient is ambulatory, but with some unsteadiness. No indication for DVT prophylaxis at this time. She is on low-dose aspirin. 13. She is agreeable to have nicotine patch while in the hospital. States she wanted to quit, but she could not, but she is comfortable to be on a nicotine patch again this time. 14. We will continue to monitor her weight and overall oral intake. 15. Further recommendations depending on the hospital course. 16. GI prophylaxis with PPI. CODE STATUS: The patient reports full code. DISPOSITION: Home once appropriate. Job ID: [id number] MTDD
[2019-08-08 14:18] VITALS: BMI 20.4
[2019-08-08] MEDS: traZODone HCl 50 MG TAB PO SCH (21:14)
[2019-08-08] MEDS: Mirtazapine 15 MG TAB PO SCH (21:14)
[2019-08-09] MEDS: Nicotine 21 MG PATCH TD SCH (08:04)
[2019-08-09] MEDS: Mometasone/Formoterol 200/5 60 PUFF INH SCH ×2 (08:06→20:42)
[2019-08-09] MEDS: Aspirin 81 mg Enteric Coated Tablet PO SCH (08:06)
[2019-08-09] MEDS: Amlodipine 5 MG TAB PO SCH (08:06)
[2019-08-09] MEDS: busPIRone HCl 5 MG TAB PO SCH ×2 (08:06→20:43)
[2019-08-09] MEDS: Cholestyramine/Aspartame 4 gm Packet PO SCH ×2 (11:14→21:54)
[2019-08-09] MEDS: traZODone HCl 50 MG TAB PO SCH (20:41)
[2019-08-09] MEDS: Mirtazapine 15 MG TAB PO SCH (20:42)
[2019-08-10] MEDS: Mometasone/Formoterol 200/5 60 PUFF INH SCH (08:36)
[2019-08-10] MEDS: Nicotine 21 MG PATCH TD SCH (08:36)
[2019-08-10] MEDS: busPIRone HCl 5 MG TAB PO SCH (08:36)
[2019-08-10] MEDS: Aspirin 81 mg Enteric Coated Tablet PO SCH (08:36)
[2019-08-10] MEDS: Amlodipine 5 MG TAB PO SCH (08:36)
[2019-08-10] MEDS: Cholestyramine/Aspartame 4 gm Packet PO SCH (09:53)
[2019-08-10] MEDS ORDERED: Sodium Chloride 0.9% 1,000 ML BAG ONE (10:12)
[2019-08-10 11:36] VITALS: BP 113/82; TEMP 97.6
== END 2019-08-10 14:59 | disposition swing bed (61) | DRG 690 ==
LOC: MADERS 09:17 → MADMS 11:52
PROVIDERS: ADMIT Family Medicine; ATTEND Family Medicine
DX: N10 Acute pyelonephritis (principal); J44.9 Chronic obstructive pulmonary disease, unspecified; I50.9 Heart failure, unspecified; C44.90 Unspecified malignant neoplasm of skin, unspecified; I11.0 Hypertensive heart disease with heart failure; F03.90 Unspecified dementia, unspecified severity, without behavioral disturbance, psychotic disturbance, mood disturbance, and anxiety; F41.9 Anxiety disorder, unspecified; F32.9 Major depressive disorder, single episode, unspecified; F51.04 Psychophysiologic insomnia; F17.210 Nicotine dependence, cigarettes, uncomplicated; E78.00 Pure hypercholesterolemia, unspecified; R53.81 Other malaise; I25.2 Old myocardial infarction; Z90.49 Acquired absence of other specified parts of digestive tract; Z87.440 Personal history of urinary (tract) infections; Z98.51 Tubal ligation status; Z88.5 Allergy status to narcotic agent; Z88.8 Allergy status to other drugs, medicaments and biological substances; Z88.6 Allergy status to analgesic agent; Z88.1 Allergy status to other antibiotic agents; Z91.040 Latex allergy status
CPT/HCPCS: 36415; 80048; 80053; 81003; 81015; 83605; 85025; 87077; 87086; 96361; 96365; 96375; 96376; J0780; J1956; J7050

== ENCOUNTER 2019-08-10 13:32 | Inpatient (IN) | payer MEDICARE ==
[2019-08-10] MEDS ORDERED: Acetaminophen 325 MG TAB PO PRN (16:05)
[2019-08-10] MEDS: traZODone HCl 50 MG TAB PO SCH (20:40)
[2019-08-10] MEDS: Mirtazapine 15 MG TAB PO SCH (20:40)
[2019-08-10] MEDS: busPIRone HCl 5 MG TAB PO SCH (20:40)
[2019-08-10] MEDS: Mometasone/Formoterol 200/5 60 PUFF INH SCH (20:41)
[2019-08-10] MEDS: Cholestyramine/Aspartame 4 gm Packet PO SCH (21:08)
[2019-08-11] MEDS: Nicotine 21 MG PATCH TD SCH (08:18)
[2019-08-11] MEDS: Aspirin 81 mg Enteric Coated Tablet PO SCH (08:18)
[2019-08-11] MEDS: Mometasone/Formoterol 200/5 60 PUFF INH SCH ×2 (08:18→20:17)
[2019-08-11] MEDS: busPIRone HCl 5 MG TAB PO SCH ×2 (08:18→20:18)
[2019-08-11] MEDS: Amlodipine 5 MG TAB PO SCH (08:18)
[2019-08-11] MEDS: Cholestyramine/Aspartame 4 gm Packet PO SCH ×2 (09:39→21:16)
[2019-08-11] MEDS: Mirtazapine 15 MG TAB PO SCH (20:18)
[2019-08-11] MEDS: traZODone HCl 50 MG TAB PO SCH (20:18)
[2019-08-12] MEDS: Aspirin 81 mg Enteric Coated Tablet PO SCH (08:38)
[2019-08-12] MEDS: busPIRone HCl 5 MG TAB PO SCH ×2 (08:39→20:28)
[2019-08-12] MEDS: Nicotine 21 MG PATCH TD SCH (08:39)
[2019-08-12] MEDS: Amlodipine 5 MG TAB PO SCH (08:39)
[2019-08-12] MEDS: Mometasone/Formoterol 200/5 60 PUFF INH SCH ×2 (08:40→20:29)
[2019-08-12] MEDS: Cholestyramine/Aspartame 4 gm Packet PO SCH ×2 (08:40→22:04)
[2019-08-12] MEDS: Guaifenesin DM 100-10/5 ML UDCUP PO PRN (20:27)
[2019-08-12] MEDS: traZODone HCl 50 MG TAB PO SCH (20:28)
[2019-08-12] MEDS: Mirtazapine 15 MG TAB PO SCH (20:28)
[2019-08-13] MEDS: Aspirin 81 mg Enteric Coated Tablet PO SCH (08:37)
[2019-08-13] MEDS: Mometasone/Formoterol 200/5 60 PUFF INH SCH ×2 (08:38→21:09)
[2019-08-13] MEDS: Amlodipine 5 MG TAB PO SCH (08:38)
[2019-08-13] MEDS: busPIRone HCl 5 MG TAB PO SCH ×2 (08:38→21:08)
[2019-08-13] MEDS: Nicotine 21 MG PATCH TD SCH (08:39)
[2019-08-13] MEDS: Cholestyramine/Aspartame 4 gm Packet PO SCH ×2 (08:45→22:31)
[2019-08-13] MEDS: Mirtazapine 15 MG TAB PO SCH (21:08)
[2019-08-13] MEDS: traZODone HCl 50 MG TAB PO SCH (21:08)
[2019-08-13] MEDS: Nystatin Powder 15 GM BOT TOP SCH (21:09)
[2019-08-14] MEDS: Nicotine 21 MG PATCH TD SCH (09:54)
[2019-08-14] MEDS: busPIRone HCl 5 MG TAB PO SCH ×2 (09:55→20:30)
[2019-08-14] MEDS: Aspirin 81 mg Enteric Coated Tablet PO SCH (09:55)
[2019-08-14] MEDS: Amlodipine 5 MG TAB PO SCH (09:55)
[2019-08-14] MEDS: Cholestyramine/Aspartame 4 gm Packet PO SCH ×2 (09:55→21:36)
[2019-08-14] MEDS: Nystatin Powder 15 GM BOT TOP SCH ×2 (09:56→20:31)
[2019-08-14] MEDS: Mometasone/Formoterol 200/5 60 PUFF INH SCH ×2 (10:03→20:31)
[2019-08-14] MEDS: Mirtazapine 15 MG TAB PO SCH (20:30)
[2019-08-14] MEDS: traZODone HCl 50 MG TAB PO SCH (20:31)
[2019-08-15] MEDS: Guaifenesin DM 100-10/5 ML UDCUP PO PRN (03:44)
[2019-08-15] MEDS: Amlodipine 5 MG TAB PO SCH (08:27)
[2019-08-15] MEDS: Mometasone/Formoterol 200/5 60 PUFF INH SCH ×2 (08:27→20:26)
[2019-08-15] MEDS: Aspirin 81 mg Enteric Coated Tablet PO SCH (08:27)
[2019-08-15] MEDS: Nystatin Powder 15 GM BOT TOP SCH ×2 (08:28→20:32)
[2019-08-15] MEDS: Nicotine 21 MG PATCH TD SCH (08:28)
[2019-08-15] MEDS: busPIRone HCl 5 MG TAB PO SCH ×2 (08:28→20:27)
[2019-08-15] MEDS: Cholestyramine/Aspartame 4 gm Packet PO SCH ×2 (08:28→21:11)
[2019-08-15] MEDS ORDERED: hydrOXYzine 25 MG TAB PO SCH (08:49)
[2019-08-15] MEDS ORDERED: Triamcinolone 0.1% Cream 15 GM TUBE TOP PRN (08:50)
[2019-08-15 12:13] VITALS: BMI 20.8
[2019-08-15] MEDS: Mirtazapine 15 MG TAB PO SCH (20:27)
[2019-08-15] MEDS: traZODone HCl 50 MG TAB PO SCH (20:27)
[2019-08-15] MEDS: hydrOXYzine 25 MG TAB PO PRN (20:28)
[2019-08-16] MEDS: Amlodipine 5 MG TAB PO SCH (08:46)
[2019-08-16] MEDS: Nicotine 21 MG PATCH TD SCH (08:47)
[2019-08-16] MEDS: Aspirin 81 mg Enteric Coated Tablet PO SCH (08:47)
[2019-08-16] MEDS: Mometasone/Formoterol 200/5 60 PUFF INH SCH ×2 (08:47→21:04)
[2019-08-16] MEDS: busPIRone HCl 5 MG TAB PO SCH ×2 (08:47→21:03)
[2019-08-16] MEDS: Nystatin Powder 15 GM BOT TOP SCH ×2 (08:48→21:03)
[2019-08-16] MEDS: hydrOXYzine 25 MG TAB PO PRN ×2 (08:57→17:11)
[2019-08-16] MEDS: Cholestyramine/Aspartame 4 gm Packet PO SCH ×2 (10:45→23:31)
[2019-08-16] MEDS: Mirtazapine 15 MG TAB PO SCH (21:03)
[2019-08-16] MEDS: traZODone HCl 50 MG TAB PO SCH (21:03)
[2019-08-17] MEDS: Mometasone/Formoterol 200/5 60 PUFF INH SCH ×2 (08:34→20:46)
[2019-08-17] MEDS: hydrOXYzine 25 MG TAB PO PRN (08:35)
[2019-08-17] MEDS: Amlodipine 5 MG TAB PO SCH (08:35)
[2019-08-17] MEDS: Aspirin 81 mg Enteric Coated Tablet PO SCH (08:35)
[2019-08-17] MEDS: busPIRone HCl 5 MG TAB PO SCH ×2 (08:35→20:45)
[2019-08-17] MEDS: Nicotine 21 MG PATCH TD SCH (08:39)
[2019-08-17] MEDS: Nystatin Powder 15 GM BOT TOP SCH ×2 (08:39→20:46)
[2019-08-17] MEDS: Cholestyramine/Aspartame 4 gm Packet PO SCH ×2 (10:14→21:55)
[2019-08-17] MEDS: Guaifenesin DM 100-10/5 ML UDCUP PO PRN (20:45)
[2019-08-17] MEDS: traZODone HCl 50 MG TAB PO SCH (20:46)
[2019-08-17] MEDS: Mirtazapine 15 MG TAB PO SCH (20:46)
[2019-08-18] MEDS: busPIRone HCl 5 MG TAB PO SCH ×2 (08:33→21:11)
[2019-08-18] MEDS: Nicotine 21 MG PATCH TD SCH (08:33)
[2019-08-18] MEDS: Mometasone/Formoterol 200/5 60 PUFF INH SCH ×2 (08:33→21:10)
[2019-08-18] MEDS: Amlodipine 5 MG TAB PO SCH (08:33)
[2019-08-18] MEDS: Aspirin 81 mg Enteric Coated Tablet PO SCH (08:33)
[2019-08-18] MEDS: Nystatin Powder 15 GM BOT TOP SCH ×2 (08:36→21:13)
[2019-08-18] MEDS: Cholestyramine/Aspartame 4 gm Packet PO SCH ×2 (10:12→21:55)
[2019-08-18] MEDS: Mirtazapine 15 MG TAB PO SCH (21:12)
[2019-08-18] MEDS: traZODone HCl 50 MG TAB PO SCH (21:12)
[2019-08-19] MEDS: hydrOXYzine 25 MG TAB PO PRN ×2 (00:08→08:10)
[2019-08-19] MEDS: Mometasone/Formoterol 200/5 60 PUFF INH SCH (08:07)
[2019-08-19] MEDS: busPIRone HCl 5 MG TAB PO SCH (08:08)
[2019-08-19] MEDS: Amlodipine 5 MG TAB PO SCH (08:08)
[2019-08-19] MEDS: Aspirin 81 mg Enteric Coated Tablet PO SCH (08:08)
[2019-08-19] MEDS: Nicotine 21 MG PATCH TD SCH (08:08)
[2019-08-19] MEDS: Nystatin Powder 15 GM BOT TOP SCH (08:08)
[2019-08-19 09:27] VITALS: BP 137/63; TEMP 98.1
[2019-08-19] MEDS: Cholestyramine/Aspartame 4 gm Packet PO SCH (10:33)
--- NOTE | 2019-08-22 11:00 | DIS ---
DATE OF ADMISSION: 08/10/2019 DATE OF DISCHARGE: 08/19/2019 REASON FOR ADMISSION: UTI, deconditioning, general weakness. FINAL DIAGNOSES: 1. Deconditioning secondary to general weakness. 2. Urinary tract infection, treated. 3. Anorexia with weight loss, improving. 4. Recurrent rash, resolving. 5. Candidal dermatitis, resolving. 6. Hypertension, controlled. 7. Chronic insomnia, stable. 8. Depression and anxiety, stable. 9. Unsteady gait. 10. Chronic obstructive pulmonary disease, requiring oxygen p.r.n. DISPOSITION: Home with family. CONDITION ON DISCHARGE: Stable. MEDICATIONS: 1. Norvasc 10 mg p.o. daily. 2. Buspirone 10 mg p.o. b.i.d. 3. Cholestyramine 4 g b.i.d. p.r.n. 4. Hydroxyzine 25 mg b.i.d. p.r.n. for itching and anxiety. 5. Mirtazapine 15 mg p.o. at bedtime. 6. Mometasone/formoterol two puffs inhaled b.i.d. 7. Nicoderm 21 mg TD daily. 8. Nystatin b.i.d. 9. Pantoprazole 40 mg p.o. daily. 10. Trazodone 50 mg p.o. at bedtime. 11. Triamcinolone b.i.d. p.r.n. to the affected area. 12. Ensure Enlive t.i.d. FOLLOWUPS: 1. Follow up with Dr. Hu in 1 week. 2. Follow up with outpatient therapy at [facility]. DIET: Regular with Ensure supplement. ACTIVITY: 1. Ad cristy. 2. O2 as needed. HISTORY OF THE PRESENT ILLNESS AND HOSPITAL COURSE: Ms. Canada is an 84-year-old female with significant history of COPD, O2 dependent mostly nocturnally, depression, anxiety, hypertension, and recurrent UTI. The patient was admitted to [facility] on 08/07/2019 due to another episode of UTI with presumptive pyelonephritis. The patient was treated appropriately with Levaquin IV that was transitioned to oral. Her urine culture came back positive for strep agalactiae. The patient did well without complications. During this admission, her weight was down to 118 (previously 128 pounds prior to last hospital discharge). The patient admits that she is not really eating much at home. Her Remeron was titrated up from 7.5 to 15 mg p.o. at bedtime, and she was supplemented with Ensure Enlive three times a day. The patient did well and her weight prior to discharge was up to 121.9 pounds. After the patient was treated for UTI, she was severely deconditioned. Family reports that at home she is not doing much, but staying in bed for the most part. She agreed to have physical therapy prior to going back to the home environment at this time. She was transferred to [facility] on 08/10/2019. The patient did well over the course. She has been walking 500 to 600 feet with and without rolling walker with standby and contact guard assist. She remains to have intermittent fatigue in between exercises and occasionally with shortness of breath, O2 down to 88% to 92%. After resting, the patient does fine and does well again. The patient is deemed improved with overall functional mobility and motor strength, but overall goal is not met yet. She was recommended to continue therapy with Home Health versus outpatient therapy. The patient prefers to have the outpatient therapy at [facility] instead. On 08/19/2019, the patient was deemed clinically stable to go back home. She is recommended to follow up with PCP as scheduled. She is encouraged to increase caloric intake and to continue nutritional supplements. During this hospitalization, the patient also assigned her power of litigation attorney associate. Her medical power of litigation attorney associate assigned to Betsy Gonzalez, her primary anode adjuster/granddaughter. PHYSICAL EXAMINATION: VITAL SIGNS: Prior to discharge; blood pressure 137/63, temperature 98.1, pulse 78, respirations 18, and O2 sats 95% on room air. Weight 121 pounds 5 ounces. Height 5 feet 4 inches. GENERAL: The patient is awake, alert, and oriented x3. Not in distress. HEENT: Normocephalic and atraumatic. PERRL. Intact EOM. Anicteric sclerae. Oral mucosa is moist. NECK: Supple. No LAD. CHEST: Normal excursion. Clear to auscultation bilaterally. CARDIAC: RRR. Normal S1 and S2. ABDOMEN: Flat, soft. Normoactive bowel sounds. Nontender. Negative CVA tenderness bilaterally. EXTREMITIES: No edema. No cyanosis. SKIN: Minimal residual rash on the left axilla and perineum was noted. No skin lesions. PSYCH: Appears calm. Appropriate demeanor and interaction. Job ID: [id number]
== END 2019-08-19 13:25 | disposition home or self-care (01) | DRG 690 ==
LOC: MADMS 15:00
PROVIDERS: ADMIT Family Medicine; ATTEND Family Medicine
DX: N39.0 Urinary tract infection, site not specified (principal); R63.0 Anorexia; R63.4 Abnormal weight loss; L30.3 Infective dermatitis; I10 Essential (primary) hypertension; F51.04 Psychophysiologic insomnia; F41.9 Anxiety disorder, unspecified; F32.9 Major depressive disorder, single episode, unspecified; R26.9 Unspecified abnormalities of gait and mobility; J44.9 Chronic obstructive pulmonary disease, unspecified; Z99.81 Dependence on supplemental oxygen; Z87.440 Personal history of urinary (tract) infections